=== PATIENT | male | born 1970 | race Caucasian/White ===

== ENCOUNTER → 2020-08-03 07:20 | Outpatient (CLI) | payer OTHER, SELFPAY ==
--- NOTE | 2020-08-03 07:23 | CT_ITS ---
STUDY: CT MAXILLOFACIAL SINUSES REASON FOR EXAM: Male, 49 years old. NASAL POLYP -- UNABLE TO BREATH FROM RIGHT NASAL CAVITY -- SURG-DEVIATED SEPTUM RADIATION DOSAGE (If Supplied By Facility): CTDIvol = ( 33.06 ) mGy, DLP = ( 925.12 ) mGycm TECHNIQUE: The patient was scanned in a multi detector CT scanner. High resolution axial imaging was performed without the administration of intravenous contrast material. Sagittal and coronal images were reconstructed. Individualized dose optimization techniques were used for this CT. COMPARISON: None. FINDINGS: FRONTAL SINUSES: Normal aeration, without mucosal inflammatory disease. ETHMOIDAL SINUSES: Mild mucosal thickening of the ethmoid sinuses bilaterally. MAXILLARY SINUSES: Normal aeration, without mucosal inflammatory disease. SPHENOIDAL SINUSES: Normal aeration, without mucosal inflammatory disease. There is patency of the bilateral maxillary infundibuli with normal uncinate processes, ethmoid bullae, and hiatus semilunaris. Normal bilateral middle turbinates. There is hypertrophy of the left inferior nasal turbinate. Normal midline nasal septum. There is patency of the bilateral nasal airways. The visualized osseous structures are normal. The visualized bilateral orbital contents are normal. CT/Sinus/Facial Bone IMPRESSION: Mild mucosal thickening of the ethmoid sinuses bilaterally. Hypertrophy of the inferior turbinate in the left nasal passage. Electronically Signed: Baldemar Sandhu, at 10:43 EDT , Service support ,
== END ==
PROVIDERS: PCP Family Medicine; Referring Provider Otolaryngology; Visit Provider Otolaryngology
DX: J33.9 Nasal polyp, unspecified (principal); J34.89 Other specified disorders of nose and nasal sinuses
CPT/HCPCS: 70486

== ENCOUNTER 2021-07-03 14:16 | Emergency (ER) | payer OTHER, SELFPAY ==
[2021-07-03 14:17] VITALS: BP 140/86; PULSE 100; RESP 18; TEMP 36.6; O2SAT 98; BMI 31.8
--- NOTE | 2021-07-03 14:41 | RAD_ITS ---
HISTORY: Trauma, ankle injury EXAMINATION/TECHNIQUE: XR Ankle Min 3 Views: COMPARISON: None FINDINGS: BONES/JOINTS: No acute fracture or dislocation. Preservation of the joint spaces. No sclerotic or destructive changes observed. SOFT TISSUES: Lateral ankle swelling. No radiopaque foreign body. RAD/Ankle min 3 Views IMPRESSION: No acute bony abnormality. at 1523 Reported and signed by: Grzegorz Ribeiro MD Electronically Signed: Grzegorz Ribeiro MD at 15:22 EDT Tel , Service support ,
--- NOTE | 2021-07-03 15:26 | EX.ED.DYSGE1 ---
HPI History of Present Illness Chief Complaint: Lower Extremity Injury Narrative Narrative: Patient is a 50-year-old male who states yesterday he was stepping off a wooden palate when he rolled his right ankle. He states he did not fall but he had severe pain the second he put pressure on it. He states that he has been icing the ankle and despite this has remained swollen and has been difficult to ambulate. He states he is concerned he may have fractured the joint and therefore comes in for evaluation. PFSH PFSH Medical History no medical history Home Medications NK 07/03/21 [History Last Taken Unknown] Allergy/AdvReac Type Severity Reaction Status Date / Time No Known Allergies Allergy Verified 07/03/21 14:19 Social History Smoking Status: Never smoker ROS ROS ED Constitutional Constitutional ED: Denies chills or fever(s) ENT ENT ED: Denies sore throat Cardiovascular Cardiovascular: Denies chest pain Respiratory/Chest Respiratory/Chest: Denies cough or dyspnea Gastrointestinal Gastrointestinal: Denies abdominal pain, diarrhea, nausea or vomiting Genitourinary Genitourinary ED: Denies dysuria Musculoskeletal Musculoskeletal: Reports other Details: Positive right ankle pain ; Denies myalgias Integumentary Denies rash Neurologic Neurologic: Denies headache(s) Hematologic/Lymphatic Hematologic/Lymphatic: Denies easy bleeding or easy bruising EXAM Physical Exam Const Vital Signs: 07/03/21 14:17 Temperature 97.9 F Temperature Source Temporal Pulse Rate 100 Respiratory Rate 18 Blood Pressure 140/86 H Blood Pressure Mean 104 Pulse Ox 98 Oxygen Delivery Method Room Air Positive well nourished and well developed General Appearance ED: well developed Eyes PERRL and EOMs intact bilaterally Neck supple Resp normal respiratory effort and clear to auscultation bilaterally Cardio regular rate and regular rhythm Extremity Extremity Narrative: Right lower extremity is neurovascular intact. There is soft tissue swelling along the lateral malleolus. No obvious bony deformity or joint effusion. There is tenderness to palpation along the lateral malleolus as well as just below it. Achilles tendon is intact and ankle ligaments are stable. Active range of motion is slightly decreased secondary to pain. Remainder of the exam is normal Neuro oriented x3 and CN's II-XII intact bilaterally Sensorium / Orientation: alert Psych mental status grossly normal Skin no rashes or lesions noted Skin Narrative: Soft tissue swelling along the right lateral malleolus as documented above but no ecchymosis or secondary changes to suggest infection MDM MDM MDM Narrative Medical decision making narrative: Patient presented to the ER with report of mechanical injury to his right ankle. Physical exam did not show any findings to suggest ligamentous tear. An x-ray was obtained which reveals no obvious fracture. Therefore I feel patient has a grade 1 ankle sprain. He will be instructed on symptomatic care and is safe for discharge home. Radiography Diagnostic Testing: Radiology Impression Ankle X-Ray 07/03/21 14:41 IMPRESSION: No acute bony abnormality. at 1523 Reported and signed by: Grzegorz Ribeiro MD Electronically Signed: Grzegorz Ribeiro MD at 15:22 EDT Tel , Service support , Discharge Plan Triage Chief Complaint: Lower Extremity Injury ED Provider: Clifford Kruger Dx/Rx/DC Orders Clinical Impression: Right ankle sprain Instructions: ED Sprain Ankle W X Ray Prescriptions: No Action NK RF: 0 Primary Care Provider: Gabino Adams Referrals: Gabino Adams MD [Primary Care Provider] - Disposition Disposition: Home, Self Care
== END 2021-07-03 15:36 | disposition home or self-care (01) ==
PROVIDERS: Emergency Provider Emergency Medicine; PCP Family Medicine
DX: S93.401A Sprain of unspecified ligament of right ankle, initial encounter (principal); X50.1XXA Overexertion from prolonged static or awkward postures, initial encounter; Y93.9 Activity, unspecified; Y92.9 Unspecified place or not applicable
CPT/HCPCS: 73610; 99282

== ENCOUNTER → 2021-09-28 11:05 | Outpatient (CLI) | payer OTHER, SELFPAY ==
[2021-09-28 12:17] LABS: Absolute Lymphocyte Count 1.48 X10^3/uL (0.83-4.51); Absolute Neutrophil Count 3.3 X10^3/uL (2.0-7.7); Basophil# 0.02 X10^3/uL; Basophil% 0.4 % (0-1); Eosinophil# 0.08 X10^3/uL; Eosinophils% 1.5 % (0-5); Hematocrit 47.9 % (40-54); Lymphocyte # 1.48 X10^3/ul (0.83-4.51); Lymphocyte % 27.6 % (19-41); Mean Corp Hgb Conc 33.4 g/dL (32-36); Mean Corpuscular Hgb 29.7 pg (27.0-32.0); Mean Platelet Vol. 10.1 fl (6.2-12.0); Monocyte# 0.46 X10^3/uL; Monocyte% 8.6 % (0-10); NRBC Flagged by Analyzer 0 % (0-5); Neutrophil # 3.28 X10^3/uL (2.7-7.7); Neutrophil % 61.2 % (47-70); Platelet Count 214 K/mm3 (150-450); RBC Distribution Width CV 14.1 % (11.6-14.6); RBC Distribution Width SD 45.8 fl (35.1-43.9); Red Blood Count 5.38 M/mm3 (4.6-6.2); White Blood Count 5.4 K/mm3 (4.4-11.0)
[2021-09-28 12:42] LABS: ALB/GLOB Ratio 1.2 RATIO (0.9-2.4); AST(SGOT) 13 U/L (15-37); Alanine Aminotransfer ALT/SGPT 33 U/L (16-61); Albumin, Serum 3.9 g/dL (3.2-5.0); Alkaline Phosphatase 115 U/L (45-117); Anion Gap 5 (5-15); BUN 14 mg/dL (7-18); BUN/Creat Ratio 16.9 RATIO (10-20); Calcium,Total 9.4 mg/dL (8.5-10.1); Chloride 103 mmol/L (98-107); Cholesterol 189 mg/dL (200); Creatinine, Serum 0.83 mg/dL (0.70-1.30); EST Glomerular Filtration Rate 105 mL/min (>60); Est Glom Filt Rate - Afr Amer 127 mL/min (>60); Globulin 3.3 g/dL (2.2-4.2); Glucose 161 mg/dL (74-106); High Density Lipoprotein 34 mg/dL; Potassium 4.4 mmol/L (3.5-5.1); Protein, Total 7.2 g/dL (6.4-8.2); Sodium Level 139 mmol/L (136-145); Triglycerides 243 mg/dL; Very Low Density Lipoprotein 49 mg/dL (5-40)
== END ==
PROVIDERS: PCP Family Medicine; Referring Provider Family Medicine; Visit Provider Registered Nurse
DX: Z00.00 Encounter for general adult medical examination without abnormal findings (principal)
CPT/HCPCS: 36415; 80053; 80061; 85025

== ENCOUNTER → 2024-03-27 | Outpatient (CLI) | payer OTHER, SELFPAY ==
[2024-03-27 09:35] LABS: Vitamin B12 528 pg/mL (211-911); Vitamin D,25 Hydroxy 37.7 ng/mL
[2024-03-27 11:21] LABS: ALB/GLOB Ratio 1.2 RATIO (0.9-2.4); AST(SGOT) 15 U/L (15-37); Alanine Aminotransfer ALT/SGPT 24 U/L (16-61); Albumin, Serum 3.6 g/dL (3.2-5.0); Alkaline Phosphatase 117 U/L (45-117); Anion Gap 10 (5-15); BUN 13 mg/dL (7-18); BUN/Creat Ratio 14.7 RATIO (10-20); Calcium,Total 8.5 mg/dL (8.5-10.1); Chloride 103 mmol/L (98-107); Cholesterol 155 mg/dL (200); Creatinine, Serum 0.89 mg/dL (0.70-1.30); EST Glomerular Filtration Rate 96 mL/min (>60); Est Glom Filt Rate - Afr Amer 116 mL/min (>60); Glucose 241 mg/dL (74-106); High Density Lipoprotein 30 mg/dL; Potassium 4.1 mmol/L (3.5-5.1); Protein, Total 6.6 g/dL (6.4-8.2); Sodium Level 138 mmol/L (136-145); Triglycerides 273 mg/dL; Very Low Density Lipoprotein 55 mg/dL (5-40)
[2024-03-27 11:29] LABS: Microalbumin,Random Urine 9.1 mg/L (NO RANGE EST.); Microalbumin:Creatinine Ratio 8.4 mg/g CRE (<30 mg/g CRE)
[2024-04-01 11:09] LABS: Testosterone, % Free 3.87 % (1.50-4.20); Testosterone, Free 22.87 ng/dL (5.00-21.00); Testosterone, Total 591 ng/dL (264-916)
== END | disposition home or self-care (01) ==
LOC: LAB 08:13
PROVIDERS: Referring Provider Nurse Practitioner Family; Visit Provider Nurse Practitioner Family
DX: E11.9 Type 2 diabetes mellitus without complications (principal); R51.9 Headache, unspecified; G89.29 Other chronic pain
CPT/HCPCS: 36415; 80053; 80061; 82043; 82306; 82570; 82607; 84402; 84403; 84443

== ENCOUNTER 2024-06-03 06:58 | Day surgery (SDC) | payer OTHER, SELFPAY ==
[2024-06-03 07:11] VITALS: BP 132/88; PULSE 98; RESP 16; TEMP 36.7; O2SAT 99; BMI 28.0
[2024-06-03] MEDS: Lactated Ringers 1,000 ML 15 ML IV (07:14)
[2024-06-03 07:27] VITALS: BP 132/88; PULSE 98; RESP 16; TEMP 36.7; O2SAT 99
--- NOTE | 2024-06-03 07:27 | PRE.ANES_ITS ---
ASA Classification* ASA Classification ASA Classification: 2 Assessment & Plan Anesthesia* Anesthesia Assessment Anesthesia Assessment: Discussed sedation and/or anesthesia options, risks, benefits, and alternatives with patient/parents/legal guardian/POA. Questions invited. The patient/parents/legal guardian/POA seems to understand and agrees to proceed with anesthesia plan. Reviewed the physical assessment, medical history, allergy history and patient home medications list prior to surgery/procedure/anesthetic and documented any changes. Performed airway and anesthesia risk assessments. Anesthesia Type Anesthesia Type: MAC Anesthesia Focused Assessment* Temperature: 98.1 F Pulse Rate: 98 Blood Pressure: 132/88 Respiratory Rate: 16 Pulse Ox: 99 Airway Assessment Mouth opens: >3 cm Mallampati Score: II Focused Labs Anesthesia Preop lab: CBC WBC 5.4 K/mm3 (4.4-11.0) 09/28/21 11:12 RBC 5.38 M/mm3 (4.6-6.2) 09/28/21 11:12 Hgb 16.0 g/dL (13.0-16.5) 09/28/21 11:12 Hct 47.9 % (40-54) 09/28/21 11:12 Plt Count 214 K/mm3 (150-450) 09/28/21 11:12 CHEMISTRY Potassium 4.1 mmol/L (3.5-5.1) 03/27/24 08:15 Sodium 138 mmol/L (136-145) 03/27/24 08:15 BUN 13 mg/dL (7-18) 03/27/24 08:15 Creatinine 0.89 mg/dL (0.70-1.30) 03/27/24 08:15 Glucose 241 mg/dL (74-106) H 03/27/24 08:15 TSH 2.20 uIU/mL (0.358-3.74) 03/27/24 08:15 COAG Pre-Assessment Diagnosis/Proposed Procedure Planned Operative Procedure(s): CSCOPE OA Anesthesia History Anesthesia History - clothing examiner: 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 When Was Last Pacemaker Check QUESTION #4 FULL TEXT: You/Your Family Experience fever (hyperthermia) with Anesthesia Last Oral Intake Last Oral intake: Last Oral Intake NPO since 05:00 06/03/24 07:11 Meds taken in AM with sips of No 06/03/24 07:11 water? Meds patient instructed to take am of surgery PONV PONV - clothing examiner: PONV - clothing examiner Female No 05/28/24 09:53 HX of Motion Sickness No 05/28/24 09:53 HX of N/V After Surgery No 05/28/24 09:53 Non-Smoker Yes 05/28/24 09:53 Duration of Surgery greater No 05/28/24 09:53 than 60 minutes Number of Risk Factors 1 05/28/24 09:53 PONV Score Low Risk 05/28/24 09:53 Height & Weight Height & Weight: Anesthesia: Height & Weight Height 5 ft 3 in 06/03/24 07:11 Weight: 72 kg 06/03/24 07:11 Body Mass Index (BMI) 28.0 06/03/24 07:11 Respiratory Assessment Respiratory Assessment - clothing examiner: Respiratory Tract Infection Hx - clothing examiner Hx Respiratory Tract Infection No 05/28/24 09:53 STOP Sleep Apnea STOP Sleep Apnea - clothing examiner: STOP Sleep Apnea - clothing examiner Hx Hypertension Yes: NO MEDS FOR 1 YR 05/28/24 09:53 Hx Sleep Apnea Yes 05/28/24 09:53 CPAP Yes: NONCOMPLIANT 05/28/24 09:53 BIPAP No 05/28/24 09:53 Do you snore loudly (louder than talking or can be heard Do you often feel tired/ fatigued/ sleepy during daytime? Has anyone observed you stop breathing during sleep? STOP Results Positive 05/28/24 09:53 QUESTION #5 FULL TEXT : Do you snore loudly (louder than talking or can be heard through closed doors)? 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 Specify any problems Hx of Preganancy in last 3 N/A 05/28/24 09:53 Months Nurse Filling Out Transfusion DSCHRIBER 05/28/24 09:53 & Questions: Date: 05/28/24 05/28/24 09:53 Time: 09:54 05/28/24 09:53 Patient unable to answer at this time (ie. confused, unrespo /Reproduction History /Reproductive History - clothing examiner: /Reproductive Hx- clothing examiner Hx Now No 05/28/24 09:53 Gestational Age (in weeks): EDC: Hx Hx Para Hx Section SAB No 05/28/24 09:53 Active Medications Active Medications: Current Medications Generic Name Dose Route Start Last Admin Trade Name Freq PRN Reason Stop Dose Admin Lactated Ringer's 1,000 mls @ 15 mls/hr 06/03/24 07:15 06/03/24 07:14 IV 15 mls/hr .Q48H BECCA Administration PFSH Medical History Wears glasses Arthritis Restless legs Back pain Migraine headache Dietary restriction History of hiatal hernia Gastric reflux CPAP (continuous positive airway pressure) dependence History of deviated nasal septum DMII (diabetes mellitus, type 2) HTN (hypertension) Family history of colon cancer in father Home Medications ?Medication ?Instructions ?Recorded ?Last Taken ?Type propranolol 10 mg tablet 10 mg PO QHS #30 tabs 03/17/24 05/30/24 Rx ashwagandha extract 500 mg capsule 500 mg PO DAILY 04/14/24 05/30/24 History berberine chloride 500 mg capsule 500 mg PO BID 04/14/24 05/30/24 History cholecalciferol (vitamin D3) 50 50 mcg PO DAILY 04/14/24 05/30/24 History mcg (2,000 unit) capsule omega-3 fatty acids 1,250 mg 1,250 mg PO DAILY 04/14/24 05/30/24 History capsule tirzepatide 2.5 mg/0.5 mL 2.5 mg subcut TU 05/28/24 05/20/24 History subcutaneous pen injector (Mounjaro) Allergy/AdvReac Type Severity Reaction Status Date / Time Environmental Allergies: Allergy PT UNABLE Verified 06/03/24 07:02 Uncoded (seasonal) TO RESPOND-NEEDS F/U Family History Father CVA (cerebral vascular accident) Colon cancer Hypertension Heart disease Social History household members: spouse current occupational status: employed Smoking Status: Never smoker Electronic Cigarette Use: not used second hand exposure: No alcohol intake: never substance use type: does not use Review of Systems (Anesthesia) ROS Narrative System reviewed and no additional complaints, except as documented.
[2024-06-03 07:35] LABS: Bedside Glucose 207 mg/dL (74-106)
--- NOTE | 2024-06-03 07:45 | HP.PCM_ITS ---
HPI - General HPI Narrative MASON BYRNES, is a 53 M who presents for screening colonoscopy. He has never had a colonoscopy in the past. He does have family history of colon cancer in his father in his 70s. He denies abdominal pain or blood in the stool. COUNTS INCLUDE 234 BEDS AT THE [facility] Medical History Wears glasses Arthritis Restless legs Back pain Migraine headache Dietary restriction History of hiatal hernia Gastric reflux CPAP (continuous positive airway pressure) dependence History of deviated nasal septum DMII (diabetes mellitus, type 2) HTN (hypertension) Family history of colon cancer in father Home Medications ?Medication ?Instructions ?Recorded ?Last Taken ?Type propranolol 10 mg tablet 10 mg PO QHS #30 tabs 03/17/24 05/30/24 Rx ashwagandha extract 500 mg capsule 500 mg PO DAILY 04/14/24 05/30/24 History berberine chloride 500 mg capsule 500 mg PO BID 04/14/24 05/30/24 History cholecalciferol (vitamin D3) 50 50 mcg PO DAILY 04/14/24 05/30/24 History mcg (2,000 unit) capsule omega-3 fatty acids 1,250 mg 1,250 mg PO DAILY 04/14/24 05/30/24 History capsule tirzepatide 2.5 mg/0.5 mL 2.5 mg subcut TU 05/28/24 05/20/24 History subcutaneous pen injector (Mounjaro) Allergy/AdvReac Type Severity Reaction Status Date / Time Environmental Allergies: Allergy PT UNABLE Verified 06/03/24 07:02 Uncoded (seasonal) TO RESPOND-NEEDS F/U Family History Father CVA (cerebral vascular accident) Colon cancer Hypertension Heart disease Social History household members: spouse current occupational status: employed Smoking Status: Never smoker Electronic Cigarette Use: not used second hand exposure: No alcohol intake: never substance use type: does not use Past Medical/Surgical History Planned Operation Planned Operative Procedure(s): CSCOPE OA Previous Hospitalizations/Surgeries HX Hospitalizations: No Any Problems With Anesthesia: No You/Your Family Experience Fever (Hyperthermia) With Anes: No Cholinesterase deficiency: No Cardiovascular Hx of Irregular Heartbeat and/or Afib: No Hx Heart Attack: No Hx Congestive Heart Failure: No Hx Hypertension: Yes (NO MEDS FOR 1 YR) Hx Pacemaker: No Respiratory Hx Chronic Obstructive Pulmonary Disease (COPD): No Hx Asthma: No Hx Emphysema: No Hx Sleep Apnea: Yes CPAP: Yes (NONCOMPLIANT) BIPAP: No Hx Respiratory Tract Infection/Cold (presently): No Result (for STOP score): Positive Smoking Status: Never smoker Gastrointestinal Hx Ulcer: No Neurological Hx Seizures: No Hx Head/Neck Injury: No Hx Headaches: Yes Hx Back Injury/Pain: No Does patient have nerve stimulator: No Reproduction : No Miscellaneous Recent Exposure to Contagious Disease: No Allergies Environmental Allergies: Uncoded (seasonal) Allergy (Verified 06/03/24 07:02) PT UNABLE TO RESPOND-NEEDS F/U Discharge Is Pt Admitted From a Care Home, or a [facility]: No After D/C, Where Do you Plan to Go: Return Home Vital Signs Vital Signs Vital Signs: 06/03/24 07:11 06/03/24 07:11 06/03/24 07:27 Temperature 98.1 F 98.1 F Temperature Source Temporal Pulse Rate 98 98 Respiratory Rate 16 16 Respiratory Pattern Normal Blood Pressure 132/88 H 132/88 H Blood Pressure Mean 102 Blood Pressure Source Monitor Blood Pressure Position Semi-Fowlers Blood Pressure Location Left Arm Pulse Ox 99 99 Oxygen Delivery Method Room Air Weight Weight: 158 lb 11.725 oz Body Mass Index (BMI) 28.0 Physical Exam Const alert and oriented x3 HEENT normocephalic Eyes PERRL Resp normal respiratory effort and normal air movement Cardio regular rate and regular rhythm GI soft to palpation, non-tender and non-distended Extremity normal to inspection Assessment & Plan Assessment/Plan (1) Encounter for screening for malignant neoplasm of colon: PLAN: I explained endoscopy in detail to the patient. I explained the risks including but not limited to stroke or heart attack with anesthesia, perforation of the GI tract, bleeding, infection. I explained that any of these could necessitate further emergency surgery. The patient understands and all ques tions were answered sufficiently. The patient wishes to proceed with procedure. Lamont José MD Pager: [facility] [address] [place] [address], [address] [place] [phone] Office: Surgery Risks - Colonoscopy Risks Include but are not Limited To: Risks include but are not limited to: Bleeding, perforation requiring further surgery, inability to complete colonoscopy requiring barium enema.
--- NOTE | 2024-06-03 08:00 | COLBX_PTH ---
PATIENT: MASON BYRNES LOC: EN U#:[id number] AGE/SX: 53/M ROOM: RE06/03/[address]: Dr. Lamont José MD : 1970 BED: DIS: 06/03/2024 SPEC #: [id number] RECD: 06/03/24 11:15 STATUS: MIGUEL A ELANIE #: [id number] SUSAN: 06/03/24 08:[address]: Lamont José DEPT: SURGICAL PATHOLOGY RECD BY: Tammi Anne ENTERED: 06/03/24 12:53 SP TYPE: COLON BX OTHR DR: Deidre Schrader, [employer] MECH[employer]IN [employer]-C Tissues: A - Transverse colon B - Transverse colon Procedures: Surgery Specimen Level IV HEADER OPERATION: Colonoscopy with polypectomy PRE-OP DIAGNOSIS: Encounter for screening for malignant neoplasm of colon TISSUE SUBMITTED: A- Distal transverse colon polyp, B- Distal transverse colon mass biopsy MICROSCOPIC DIAGNOSIS A. Distal transverse colon polyp, polypectomy: Tubular adenoma. B. Distal transverse colon mass, biopsy: Villous adenoma. See comment. 06/04/2024 COMMENT Definite invasive carcinoma is not seen in the specimen. Correlation with clinical, endoscopic findings and appropriate follow up are necessary. Case has been reviewed in consultation with Dr. Barrientos who concurs with the above diagnosis. IDC:AM MICROSCOPIC DESCRIPTION Slides are reviewed. GROSS DESCRIPTION A. Received in fixative is one container labeled with the patient's name and designated Distal transverse colon polyp. The specimen consists of a pink-red polyp measuring 1.0 x 1.0 x 0.5 cm. The presumed base is inked. The polyp is bisected and submitted entirely in one cassette. B. Received in fixative is one container labeled with the patient's name and designated Distal transverse colon mass biopsy. The specimen consists of multiple irregular fragments of light song soft tissue that in aggregate measure 0.5 x 0.5 x 0.1 cm. The specimen is totally submitted in one cassette. 06/03/2024 TC:1 CPT:75799x3
--- NOTE | 2024-06-03 08:18 | OP.COLON_ITS ---
Patient Name: Addy Gregory Procedure Date: 06/03/2024 7:51 AM Date of : 1970 Age: 53 Procedure: Colonoscopy Indications: Screening in patient at increased risk: Colorectal cancer in father 60 or older Providers: Lamont José MD Referring MD: Lamont José MD Medicines: Propofol per Anesthesia Patient Profile: This is a 53 year old male. Refer to note in patient chart for documentation of history and physical. Last Colonoscopy: none. The patient's first colonoscopy is today. Complications: No immediate complications. Estimated blood loss: Minimal. Procedure: Pre-Anesthesia Assessment: - Prior to the procedure, a History and Physical was performed, and patient medications and allergies were reviewed. The patient's tolerance of previous anesthesia was also reviewed. The risks and benefits of the procedure and the sedation options and risks were discussed with the patient. All questions were answered, and informed consent was obtained. Prior Anticoagulants: The patient has taken no anticoagulant or antiplatelet agents. After reviewing the risks and benefits, the patient was deemed in satisfactory condition to undergo the procedure. After I obtained informed consent, the scope was passed under direct vision. Throughout the procedure, the patient's blood pressure, pulse, and oxygen saturations were monitored continuously. The colonoscope was introduced through the anus and advanced to the cecum, identified by appendiceal orifice and ileocecal valve. The colonoscopy was performed without difficulty. The patient tolerated the procedure well. The quality of the bowel preparation was good. The ileocecal valve, appendiceal orifice, and rectum were photographed. Scope In: 8:01:14 AM Scope Withdrawal Time 0 hours 5 minutes 17 seconds Scope Out: 8:14:13 AM Total Procedure Duration Time 0 hours 12 minutes 59 seconds Findings: A medium polyp was found in the distal transverse colon. The polyp was removed with a hot snare. Resection and retrieval were complete. A fungating non-obstructing large mass was found in the distal transverse colon. The mass was non-circumferential. No bleeding was present. This was biopsied with a cold forceps for histology. For location marking, one hemostatic clip was successfully placed. There was no bleeding at the end of the procedure. The exam was otherwise without abnormality on direct and retroflexion views. Impression: - One medium polyp in the distal transverse colon, removed with a hot snare. Resected and retrieved. - Likely malignant tumor in the distal transverse colon. Biopsied. Clip was placed. - The examination was otherwise normal on direct and retroflexion views. Recommendation: - Discharge patient to home. - Resume previous diet. - Continue present medications. - Await pathology results. - Repeat colonoscopy for surveillance based on pathology results. - Return to my office in 1 week. - Perform CT scan (computed tomography) of the abdomen with contrast at appointment to be scheduled. Procedure Code(s): --- Professional --- 63981, Colonoscopy, flexible; with removal of tumor(s), polyp(s), or other lesion(s) by snare technique 80723, 59, Colonoscopy, flexible; with biopsy, single or multiple 69412, Unlisted procedure, colon Diagnosis Code(s): --- Professional --- Z80.0, Family history of malignant neoplasm of digestive organs D12.3, Benign neoplasm of transverse colon (hepatic flexure or splenic flexure) D49.0, Neoplasm of unspecified behavior of digestive system CPT copyright 2021 [employer]. All rights reserved. The codes documented in this report are preliminary and upon life underwriter review may be revised to meet current compliance requirements. Lamont José MD 06/03/2024 8:18:30 AM This report has been signed electronically. Number of Addenda: 0 Note Initiated On: 06/03/2024 7:51 AM
--- NOTE | 2024-06-03 08:18 | PCM.POST.ANE ---
Anesthesia: Postop Eval I Current Vital Signs Temperature: 97.6 F Pulse Rate: 91 Blood Pressure: 82/69 Respiratory Rate: 16 Pulse Ox: 95 Oxygen Delivery Method: Room Air Assessment Airway patent: Yes Spontaneous unlabored respirations: Yes Mental status: Awake and Calm nausea: No Vomiting: No Anesthesia Complication: No Fluid Hydration Crystalloid volume administer (ml): 400 Total IV fluid infused: 400 Progress Note Anesthesia document: Postop Eval 1 completed: Yes
--- NOTE | 2024-06-03 08:19 | OP.CCLET_ITS ---
06/03/2024 Deidre Schrader Re : Colonoscopy procedure for Addy Gregory Dear Raciel This procedure was performed on Monday, June 03, 2024. My impressions and recommendations are as follows: Impressions : - One medium polyp in the distal transverse colon, removed with a hot snare. Resected and retrieved. - Likely malignant tumor in the distal transverse colon. Biopsied. Clip was placed. - The examination was otherwise normal on direct and retroflexion views. Recommendations : - Discharge patient to home. - Resume previous diet. - Continue present medications. - Await pathology results. - Repeat colonoscopy for surveillance based on pathology results. - Return to my office in 1 week. - Perform CT scan (computed tomography) of the abdomen with contrast at appointment to be scheduled. My findings are described in the full procedure note, which is enclosed. If I can be of further assistance, please feel free to contact me at Doctor phone number(s): , Work: . Sincerely, Lamont José MD 06/03/2024 8:18:30 AM This report has been signed electronically.
[2024-06-03 08:20] VITALS: BP 132/88; PULSE 88; RESP 16; TEMP 36.4; O2SAT 96
[2024-06-03 08:25] VITALS: BP 113/74; BP 132/88; BP 82/69; PULSE 87; PULSE 91; RESP 16; TEMP 36.4; O2SAT 95; O2SAT 96
[2024-06-03 08:30] VITALS: BP 114/77; BP 115/81; BP 132/88; PULSE 89; PULSE 94; RESP 16; TEMP 37.3; O2SAT 95; O2SAT 96
[2024-06-03 08:50] VITALS: BP 132/88
--- NOTE | 2024-06-03 09:20 | POSTOPAN2_ITS ---
Anesthesia Postop Eval I Sum Postop Eval Completion status Anesthesia document: Postop Eval 1 completed: Yes Anesthesia Postop Eval I Summary Anesthesia Postop Eval I Summary: Anesthesia Postop Eval I: Assessment Summary Airway patent Yes 06/03/24 08:25 DIRECTOR BUSINESS INTEGRATION.[email or web address] Spontaneous unlabored Yes 06/03/24 08:25 DIRECTOR [employer] INTEGR[employer].GDOTT respirations Mental status Awake,Calm 06/03/24 08:25 DIRECTOR [employer] INTEGRATION.GDOTT nausea No 06/03/24 08:25 DIRECTOR BUSINESS INTEGRATION.GDOTT Vomiting No 06/03/24 08:25 DIRECTOR BUSINESS INTEGRATION.GDOTT Anesthesia Postop Eval I: Fluid Summary Crystalloid volume administer 400 06/03/24 08:25 DIRECTOR BUSINESS INTEGRATION.GDOTT (ml) Colloids volume administered ( ml) Blood Product volume administered (ml) Total IV fluid infused 400 06/03/24 08:25 DIRECTOR BUSINESS INTEGRATION.GDOTT Anesthesia Postop Eval I: Summary Notes Anesthesia Complication No 06/03/24 08:25 DIRECTOR BUSINESS INTEGRATION.GDOTT Anesthesia Complication Comment: Post-operative progress note Anesthesia: Postop Eval II Evaluation Mental status: Awake Pain Level: 0 nausea: No Vomiting: No
--- NOTE | 2024-06-03 09:20 | PCM.POSTANE2 ---
Anesthesia Postop Eval I Sum Postop Eval Completion status Anesthesia document: Postop Eval 1 completed: Yes Anesthesia Postop Eval I Summary Anesthesia Postop Eval I Summary: Anesthesia Postop Eval I: Assessment Summary Airway patent Yes 06/03/24 08:25 BRUSH AND BROOM CLIPPER.[email or web address] Spontaneous unlabored Yes 06/03/24 08:25 BRUSH AND BROOM CLIPPER.GDOTT respirations Mental status Awake,Calm 06/03/24 08:25 BRUSH AND BROOM CLIPPER.GDOTT nausea No 06/03/24 08:25 BRUSH AND BROOM CLIPPER.GDOTT Vomiting No 06/03/24 08:25 BRUSH AND BROOM CLIPPER.GDOTT Anesthesia Postop Eval I: Fluid Summary Crystalloid volume administer 400 06/03/24 08:25 BRUSH AND BROOM CLIPPER.GDOTT (ml) Colloids volume administered ( ml) Blood Product volume administered (ml) Total IV fluid infused 400 06/03/24 08:25 BRUSH AND BROOM CLIPPER.GDOTT Anesthesia Postop Eval I: Summary Notes Anesthesia Complication No 06/03/24 08:25 BRUSH AND BROOM CLIPPER.GDOTT Anesthesia Complication Comment: Post-operative progress note Anesthesia: Postop Eval II Evaluation Mental status: Awake Pain Level: 0 nausea: No Vomiting: No
== END 2024-06-03 08:56 | disposition home or self-care (01) ==
LOC: EN 06:59 → AC 07:00
PROVIDERS: PCP Registered Nurse; Referring Provider Registered Nurse; Visit Provider Surgery
PROC: 0DJD8ZZ Inspection of Lower Intestinal Tract, Via Natural or Artificial Opening Endoscopic (ICD-10-PCS; CPT 45378; principal; 2024-06-03 07:55)
DX: Z12.11 Encounter for screening for malignant neoplasm of colon (principal); E11.9 Type 2 diabetes mellitus without complications; Z79.85 Long-term (current) use of injectable non-insulin antidiabetic drugs; K63.5 Polyp of colon; I10 Essential (primary) hypertension; Z80.0 Family history of malignant neoplasm of digestive organs; Z79.899 Other long term (current) drug therapy; R19.00 Intra-abdominal and pelvic swelling, mass and lump, unspecified site
CPT/HCPCS: 45385; 45380; 82962; 88305; J7120

== ENCOUNTER → 2024-06-04 | Outpatient (CLI) | payer OTHER, SELFPAY ==
--- NOTE | 2024-06-04 13:41 | CT_ITS ---
INDICATION: colon mass EXAMINATION: CT ABDOMEN AND PELVIS with CONTRAST - CT Abdomen And Pelvis W/ Contrast Injection TECHNIQUE: Multiple axial images were obtained of the abdomen and pelvis following administration of IV contrast. Planar reconstructions obtained. A radiation dose optimization technique was used for this scan. Radiation Dose (provided by facility) CTDIvol (NA ) mGy, DLP ( NA) mGy-cm IV Contrast dosage and agent: 100 mL Isovue-300 Oral contrast: Oral contrast is present. COMPARISON: Noncontrast CT of 07/27/2017. No recent examinations for comparison. FINDINGS: AREAS OF INTEREST: 1. There is a intraluminal solid mass within the colon at the level of the splenic flexure measuring approximately 2.7 x 2.5 cm in axial dimension, and 3.7 cm in superior to inferior dimension. No evidence of obstruction. This is characterized by moderate contrast enhancement and a lobulated contour. 2. No other large or small bowel mass is noted. 3. Several small nonpathologic lymph nodes are present with in the transverse mesocolon (series 2: Image 33), largest measuring approximately 4 mm. 4. No evidence of retroperitoneal adenopathy. 5. No no definitive masses noted within the liver. There is subtle area of increased contrast enhancement within the RIGHT hepatic lobe, segment 8, measuring approximately 9.3 mm in size (series 2: Image 17). Additional enhancing nodule within the inferior aspect of the RIGHT hepatic lobe measures 12.2 x 13.9 mm in segment 7 (series 2: Image 33). Remaining liver has normal appearance. 6. No masses involving the adrenal glands. REMAINING EXAMINATION: LOWER CHEST: 1. Lung bases are clear. 2. No cardiomegaly or pericardial effusion. 3. No significant coronary vascular calcifications. HEPATOBILIARY: Liver: Liver is normal in size and configuration. There are 2 Enhancing nodules within the RIGHT hepatic lobe as detailed above. No ductal dilatation.. Gallbladder: The gallbladder is unremarkable. Pancreas: Pancreas is normal size configuration and density. No mass is noted. Spleen: The spleen is homogeneous and normal in size. . BOWEL: Stomach: The stomach is normal in size configuration, no evidence of focal masses, abnormal calcifications. No hiatal hernia noted. Bowel: Large small bowel loops have normal configuration. Prominent intraluminal mass within the colon at the level of splenic flexure as detailed above. No evidence of bowel obstruction. Small bowel has normal appearance. No evidence diverticulitis. Appendix: The visualized appendix has normal appearance.: GENITOURINARY: Adrenals: Both adrenal glands are normal in size. Kidneys: Kidneys have normal configuration. There is a nonobstructing calcification in the RIGHT kidney measuring 4.5 mm. No ureteral stones or CT evidence of obstructive uropathy.. Bladder: Normal Pelvic organs: The visualized pelvic organs are normal in size and configuration. No masses or adenopathy noted. RETROPERITONEUM: There is normal appearance of the abdominal aorta and inferior vena cava. LYMPH NODES: No evidence of retroperitoneal or para-aortic masses fluid collections or adenopathy. PERITONEAL CAVITY: No ascites noted ANTERIOR ABDOMINAL WALL: Normal, no hernia identified. BONES AND SOFT TISSUES: Mild lumbar spondylosis. No evidence of fracture or acutely acquired canal stenosis. No evidence of lytic or sclerotic bony lesions. OTHER: None CT/Abdomen/Pelvis WITH Contrast IMPRESSION: 1. Soft tissue mass/neoplasm within the lumen of the colon at the level of the splenic flexure measuring 2.7 x 2.5 x 3.7 cm. No evidence of bowel obstruction. 2. Several subtle nonspecific lymph nodes are present within the mesocolon adjacent to the splenic flexure, not reaching size criteria of adenopathy. 3. Two enhancing lesions within the RIGHT hepatic lobe. These may represent small hemangiomas, however hypervascular metastatic deposits are not excluded though felt less likely. 4. No masses identified within the adrenal glands. 5. No bony metastatic changes noted. 6. RIGHT renal calcification without evidence of obstructive uropathy. 7. Normal appendix. 8. No evidence of cholelithiasis or duct dilatation. Electronically Signed: Nabeel Nova MD at 18:05 EDT ,
== END | disposition home or self-care (01) ==
LOC: CT 13:40
PROVIDERS: PCP Registered Nurse; Referring Provider Surgery; Visit Provider Surgery
DX: K63.89 Other specified diseases of intestine (principal)
CPT/HCPCS: 74177; Q9967

== ENCOUNTER → 2024-06-11 | Outpatient (CLI) | payer OTHER, SELFPAY ==
[2024-06-11 10:25] LABS: Absolute Lymphocyte Count 0.88 X10^3/uL (0.83-4.51); Absolute Neutrophil Count 3.3 X10^3/uL (2.0-7.7); Basophil# 0.01 X10^3/uL; Basophil% 0.2 % (0-1); Eosinophil# 0.04 X10^3/uL; Eosinophils% 0.9 % (0-5); Hematocrit 46.4 % (40-54); Hemoglobin 15.1 g/dL (13.0-16.5); Lymphocyte # 0.88 X10^3/ul (0.83-4.51); Lymphocyte % 19.1 % (19-41); Mean Corp Hgb Conc 32.5 g/dL (32-36); Mean Corpuscular Hgb 28.9 pg (27.0-32.0); Mean Corpuscular Volume 88.7 fL (80-94); Mean Platelet Vol. 9.8 fl (6.2-12.0); Monocyte# 0.36 X10^3/uL; Monocyte% 7.8 % (0-10); NRBC Flagged by Analyzer 0 % (0-5); Neutrophil # 3.29 X10^3/uL (2.7-7.7); Neutrophil % 71.6 % (47-70); Platelet Count 220 K/mm3 (150-450); RBC Distribution Width CV 13.7 % (11.6-14.6); RBC Distribution Width SD 44.6 fl (35.1-43.9); Red Blood Count 5.23 M/mm3 (4.6-6.2); White Blood Count 4.6 K/mm3 (4.4-11.0)
== END | disposition home or self-care (01) ==
PROVIDERS: PCP Registered Nurse; Referring Provider Surgery; Visit Provider Surgery
DX: K63.89 Other specified diseases of intestine (principal)
CPT/HCPCS: 36415; 82378; 85025

== ENCOUNTER 2024-06-23 13:16 | Inpatient (IN) | payer OTHER, SELFPAY ==
[2024-06-23] VITALS (14 sets, daily range): BP systolic 112–133; BP diastolic 69–83; PULSE 88–102; RESP 14–20; TEMP 36.2–37.3; O2SAT 93–100; BMI 28.1
--- NOTE | 2024-06-23 | COL._PTH ---
PATIENT: MASON BYRNES LOC: MS3 U#:[id number] AGE/SX: 53/M ROOM: MS319 RE06/23/[address]: Dr. Lamont José MD : 1970 BED: 1 DIS: 06/28/2024 SPEC #: [id number] RECD: 06/23/24 13:28 STATUS: MIGUEL A HENRY #: [id number] SUSAN: 06/23/24 00:[address]: Lamont José DEPT: SURGICAL PATHOLOGY RECD BY: Gopal Carreon ENTERED: 06/24/24 09:35 SP TYPE: COLON OTHR DR: Deidre Schrader, TRANSMISSION MECHANIC-C Tissues: Colon, NOS Procedures: Surgery Specimen Level HEADER OPERATION: Laparoscopic splenic flexure resection PRE-OP DIAGNOSIS: Colonic mass TISSUE SUBMITTED: Splenic flexure- suture silver proximal margin MICROSCOPIC DIAGNOSIS Splenic flexure, segmental resection: Invasive moderately differentiated adenocarcinoma. See cancer template below. AM.mr 06/26/2024 COMMENT COLON/RECTAL CANCER CASE SUMMARY Procedure: Segmental colectomy Tumor Site: Splenic flexure Tumor Size: 4.0 x 3.5 x 2.0cm Macroscopic Tumor Perforation: Not identified Histologic Type: Colon adenocarcinoma Histologic Grade: G2 (moderately differentiated) Tumor Extension: Tumor invades into the muscularis propria Margins: All margins are uninvolved by invasive carcinoma Treatment Effect: Unknown Lympho vascular Invasion: Not identified Perineural Invasion: Not identified Tumor Deposits: Not identified Regional Lymph Nodes: 10 out of 10 lymph nodes, negative for metastatic carcinoma Ancillary Studies: [id number] (immunohistochemistry) No MSI detected (No loss of mismatch repair proteins). Additional Pathologic Findings: Mild chronic inflammation Pathologic Stage: T2 N0 Mx Immunohistochemistry ([id number]) supports the above diagnosis. Case has been reviewed in consultation with Dr. Hernandez who concurs with the above diagnosis. IDC:[id number] MICROSCOPIC DESCRIPTION Slides are reviewed. GROSS DESCRIPTION Received in fixative is one container labeled with the patient's name and designated Splenic flexure biopsy. The specimen consists of a segment of colon with attached pericolonic adipose tissue and omentum measuring 14.0cm in length. Both resection margins are stapled. Focal area of serosal surface shows puckering. This area is inked black 6.0cm away from the proximal resection margin and an almost obstructing cauliflower like mass is noted measuring 3.5 x 4.0 x 2.0cm. No additional mass lesions are identified. Attached omentum measures 15.0 x 13.0 x 2.0cm. Pericolonic adipose tissue is fixed in lymph node revealing solution. More dictation will follow after fixation. . 06/24/2024 Section of the bowel wall reveals a few diverticula and obviously ruptured diverticula are noted. No additional mucosa lesion is identified. Section of the tumor reveal no extension through bowel wall. Section of the omentum do not reveal any mass lesions. Sections of pericolonic adipose tissue reveal multiple lymph nodes, largest lymph node measures 0.5cm in greatest dimension. Fisher Quahog sections are submitted as follows: 1- proximal resection margin, 2- distal resection margin, 3&4- diverticula, 5-8- tumor, 9- omentum, 10- 12-lymph node (cassette 10- one bisected lymph node, 11&12- multiple lymph nodes). . 06/25/2024 Pericolonic adipose tissue dissected again for a second look for lymph nodes. More sections are submitted as follows: 13-16- rest of the tumor, 17&18- pericolonic adipose tissue with possible lymph node. . 06/26/2024 TC:0 CPT:41796
--- NOTE | 2024-06-23 | IMM_PTH ---
PATIENT: MASON BYRNSE LOC: MS3 U#:[id number] AGE/SX: 53/M ROOM: HI319 RE06/23/[address]: Dr. Lamont José MD : 1970 BED: 1 DIS: 06/28/2024 SPEC #: [id number] RECD: 06/30/24 09:51 STATUS: MIGUEL A REQ #: [id number] SUSAN: 06/23/24 00:[address]: Lamont José DEPT: IMMUNOHISTOCHEMISTRY RECD BY: Alejandro Lang ENTERED: 06/30/24 09:51 SP TYPE: IMMUNO OTHR DR: Deidre Schrader, CIRCULAR KNITTER-C Tissues: Colon, NOS Procedures: MLH-1 (add) MSH6 (add) Anti-PMS2 (add) HER2 GURINDER (add) KI-67 (add) P53 (add) MSH2 (initial) MOC-31 (add) PHYSICIAN & INSTITUTION [place] [id number] SPECIMEN INFORMATION: Tissue Source: Splenic flexure Clinical Info: Colonic mass Specimen Number: [id number] CPT code: 82305,52032d9 METHODOLOGY: Deparaffinized sections of prefer/formalin-fixed tissue or PAP/DQ stained slides are incubated with monoclonal/polyclonal antibodies/oligonucleotide probes. Localization is made via biotin free immunoperoxidase method. Appropriate controls are performed and reacted as expected. Results on target cell population are indicated in the following table: RESULTS: ANTIBODY / CLONE RESULT Block #5 Her-2neu (CB11) negative MOC-31 (4561) positive MLH-1 (M1) positive MSH2 (25D12) positive MSH6 (44) positive PMS2 (LUW5160) positive Ki-67 (30-9) positive, >90% P53 (DO-7) negative, null pattern These tests were developed and their performance characteristics determined by [facility]. They may not have been cleared or approved by the U.S. Food and Drug Administration. The FDA has determined that such clearance or approval is not necessary. The above immunohistochemical/dualISH markers are ordered and reviewed by the Pathologist. INTERPRETATION: Splenic flexure, resection: Invasive adenocarcinoma. Result of Microsatellite Instability Study: Negative (no loss of mismatch protein; no microsatellite instability detected). AMLauren 07/01/2024
[2024-06-23] MEDS: Lactated Ringers 1,000 ML 40 ML IV (09:26)
[2024-06-23] MEDS: Acetaminophen 500 MG Tablet 1000 MG PO (09:28)
[2024-06-23] MEDS: Gabapentin 600 MG Tablet PO (09:28)
--- NOTE | 2024-06-23 09:32 | HP.PCM_ITS ---
History and Physical Date of Admission: 06/23/24 Intake Vital Signs 06/03/2407:11 06/11/2412:51 Height 5 ft 3 in 5 ft 3 in Weight: 162 lb BMI 28.7 BP 145/85 H Blood Pressure Location Rt brachial Position Sitting Respiration 18 Pulse 97 Pulse Source Monitor Temp 97.5 F L Temp Source Temporal Pulse Oximetry (%) 100 Oxygen Delivery Method room air Intake Visit Reasons: DISCUSS MASS FOUND ON SCOPE Chief Complaint: discuss mass found on scope Accompanied by: Is patient in pain?: No Allergies Environmental Allergies: Uncoded (seasonal) Allergy (Verified 06/11/24 12:52) PT UNABLE TO RESPOND-NEEDS F/U Medications ?Medication ?Instructions ?Recorded ?Confirmed ?Type propranolol 10 mg tablet 10 mg PO QHS #30 tabs 03/17/24 06/11/24 Rx ashwagandha extract 500 mg capsule 500 mg PO DAILY 04/14/24 06/11/24 History berberine chloride 500 mg capsule 500 mg PO BID 04/14/24 06/11/24 History cholecalciferol (vitamin D3) 50 50 mcg PO DAILY 04/14/24 06/11/24 History mcg (2,000 unit) capsule omega-3 fatty acids 1,250 mg 1,250 mg PO DAILY 04/14/24 06/11/24 History capsule tirzepatide 2.5 mg/0.5 mL 2.5 mg subcut TU 05/28/24 06/11/24 History subcutaneous pen injector (Mounjaro) Have you fallen in the past year?: No PFSH Medical History Colonic mass Wears glasses Arthritis Restless legs Back pain Migraine headache Dietary restriction History of hiatal hernia Gastric reflux CPAP (continuous positive airway pressure) dependence History of deviated nasal septum DMII (diabetes mellitus, type 2) HTN (hypertension) Family history of colon cancer in father Family History Father CVA (cerebral vascular accident) Colon cancer Hypertension Heart disease Social History household members: spouse current occupational status: employed Smoking Status: Never smoker Electronic Cigarette Use: not used second hand exposure: No alcohol intake: never substance use type: does not use HPI HPI HPI: Colon mass was foundPatient is a 53-year-old male here for colon mass. screening colonoscopy and it is at the splenic flexure. Exam Const General: cooperative Orientation: alert and oriented x3 HENMT Head: normal to inspection Neck Neck: normal visual inspection and full ROM Chest Chest palpation & inspection: normal inspection of the chest Resp Effort & Inspection: normal respiratory effort Auscultation: clear to auscultation bilaterally Cardio Rate: regular rate Rhythm: regular rhythm GI Inspection: non-distended Palpation: soft and nontender Skin General: no rashes or lesions noted Neuro General: patient alert and patient oriented x3 Extrem General: full ROM Psych Appearance: grossly normal Mental Status: mental status grossly normal Assessment and Plan Assessment and Plan (1) Colonic mass: Status: Acute Plan: Patient has a colonic mass at the splenic flexure. I discussed laparoscopic hemicolectomy with him. I discussed resecting the cancer as well as anastomosis. I discussed possibly having to convert to open surgery. I also discussed the risks of the case such as bleeding, infection, injury other organ such as the pancreas or stomach or small bowel. Patient understands all the risks and is willing to proceed. I discussed his bowel prep with him. Patient understands all the risks and is willing to proceed. I did perform a CT scan that did not show any metastatic disease. Lamont José MD Pager: [facility] [address] [place] [address], [address] [place] [address] Office: I have examined the patient and the H&P has been reviewed. There are no clinical changes since date of exam.
[2024-06-23 09:39] LABS: Bedside Glucose 289 mg/dL (74-106)
[2024-06-23 09:58] LABS: Anion Gap 9 (5-15); BUN 7 mg/dL (7-18); BUN/Creat Ratio 7.8 RATIO (10-20); Chloride 100 mmol/L (98-107); EST Glomerular Filtration Rate 94 mL/min (>60); Est Glom Filt Rate - Afr Amer 114 mL/min (>60); Estimated Creatinine Clearance 86.46 ml/min; Glucose 299 mg/dL (74-106); Magnesium 2.2 mg/dL (1.6-2.6); Potassium 3.7 mmol/L (3.5-5.1); Sodium Level 135 mmol/L (136-145)
[2024-06-23] MEDS: Insulin Lispro 100 UNIT/ML INSULN.PEN SC ×2 (10:01→13:22)
[2024-06-23] MEDS: Magnesium 1 GM over 15 mins IV (10:16)
--- NOTE | 2024-06-23 10:47 | PCM.PRE.AN2 ---
ASA Classification* ASA Classification ASA Classification: 2 Assessment & Plan Anesthesia* Anesthesia Assessment Anesthesia Assessment: Discussed sedation and/or anesthesia options, risks, benefits, and alternatives with patient/parents/legal guardian/POA. Questions invited. The patient/parents/legal guardian/POA seems to understand and agrees to proceed with anesthesia plan. Reviewed the physical assessment, medical history, allergy history and patient home medications list prior to surgery/procedure/anesthetic and documented any changes. Performed airway and anesthesia risk assessments. Anesthesia Type Anesthesia Type: General History Source History Obtained from:: Patient and Chart Anesthesia Focused Assessment* Temperature: 98.2 F Pulse Rate: 93 Blood Pressure: 115/83 Respiratory Rate: 18 Pulse Ox: 99 Oxygen Delivery Method: Room Air Airway Assessment Mouth opens: >3 cm Mallampati Score: III Teeth Condition: Intact Neck Range of motion (ROM): Full ROM Focused Labs Anesthesia Preop lab: CBC WBC 4.6 K/mm3 (4.4-11.0) 06/11/24 09:49 RBC 5.23 M/mm3 (4.6-6.2) 06/11/24 09:49 Hgb 15.1 g/dL (13.0-16.5) 06/11/24 09:49 Hct 46.4 % (40-54) 06/11/24 09:49 Plt Count 220 K/mm3 (150-450) 06/11/24 09:49 CHEMISTRY Potassium 3.7 mmol/L (3.5-5.1) 06/23/24 09:15 Sodium 135 mmol/L (136-145) L 06/23/24 09:15 Magnesium 2.2 mg/dL (1.6-2.6) 06/23/24 09:15 BUN 7 mg/dL (7-18) 06/23/24 09:15 Creatinine 0.90 mg/dL (0.70-1.30) 06/23/24 09:15 Glucose 299 mg/dL (74-106) H 06/23/24 09:15 POC Glucose 289 mg/dL (74-106) H 06/23/24 09:09 TSH 2.20 uIU/mL (0.358-3.74) 03/27/24 08:15 COAG Pre-Assessment Diagnosis/Proposed Procedure Planned Operative Procedure(s): LAP MARIAH COLECTOMY Anesthesia History 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 When Was Last Pacemaker Check QUESTION #4 FULL TEXT: You/Your Family Experience fever (hyperthermia) with Anesthesia Last Oral Intake Last Oral intake: Last Oral Intake NPO since 00:00 06/23/24 09:31 Meds taken in AM with sips of No 06/23/24 09:31 water? Meds patient instructed to take am of surgery PONV PONV - blanket cutting machine operator: PONV - blanket cutting machine operator Female No 06/18/24 10:23 HX of Motion Sickness No 06/18/24 10:23 HX of N/V After Surgery No 06/18/24 10:23 Non-Smoker Yes 06/18/24 10:23 Duration of Surgery greater Yes 06/18/24 10:23 than 60 minutes Number of Risk Factors 2 06/18/24 10:23 PONV Score Moderate Risk 06/18/24 10:23 Height & Weight Height & Weight: Anesthesia: Height & Weight Height 5 ft 3 in 06/23/24 09:31 Weight: 72.03 kg 06/23/24 09:31 Body Mass Index (BMI) 28.1 06/23/24 09:31 Respiratory Assessment Respiratory Assessment - blanket cutting machine operator: Respiratory Tract Infection Hx - blanket cutting machine operator Hx Respiratory Tract Infection No 06/18/24 10:23 STOP Sleep Apnea STOP Sleep Apnea - blanket cutting machine operator: STOP Sleep Apnea - blanket cutting machine operator Hx Hypertension Yes: NO MEDS FOR 1 YR 06/18/24 10:23 Hx Sleep Apnea Yes 06/18/24 10:23 CPAP Yes: NONCOMPLIANT 06/18/24 10:23 BIPAP No 06/18/24 10:23 Do you snore loudly (louder than talking or can be heard Do you often feel tired/ fatigued/ sleepy during daytime? Has anyone observed you stop breathing during sleep? STOP Results Positive 06/18/24 10:23 QUESTION #5 FULL TEXT : Do you snore loudly (louder than talking or can be heard through closed doors)? Tobacco Use History Tobacco Use History - blanket cutting machine operator: Tobacco Use History - blanket cutting machine operator Tobacco Use Smoking Status Never smoker 06/18/24 10:23 Hx Tobacco Use No 06/18/24 10:23 Years Smoking Packs Smoked per Day Smoking Cessation Date was within the last 15 years Hx Smoking Cessation Date Hx Smoking Cessation Counseling Hematologic Medial History Hematologic Hx - blanket cutting machine operator: Hematologic Medical Hx - pharmaceutical worker Hx of Blood Transfusion No 06/18/24 10:23 Hx of Transfusion in last 3 No 06/18/24 10:23 Months Date of Last Transfusion (if within last 3 months) Ever experience any problems No 06/18/24 10:23 with transfusion(s)? Specify any problems Hx of Preganancy in last 3 N/A 06/18/24 10:23 Months Nurse Filling Out Transfusion DSCHRIBER 06/18/24 10:23 & Questions: Date: 06/18/24 06/18/24 10:23 Time: 10:23 06/18/24 10:23 Patient unable to answer at this time (ie. confused, unrespo /Reproduction History /Reproductive History - blanket cutting machine operator: /Reproductive Hx- blanket cutting machine operator Hx Now Gestational Age (in weeks): EDC: Hx Hx Para Hx Section SAB No 06/18/24 10:23 Active Medications Active Medications: Current Medications Generic Name Dose Route Start Last Admin Trade Name Freq PRN Reason Stop Dose Admin Cefotetan Disodium 2 gm/ 100 mls @ 200 mls/hr 06/23/24 10:30 Sodium Chloride IV 06/23/24 10:59 PREOP ONE Lactated Ringer's 1,000 mls @ 40 mls/hr 06/23/24 10:30 06/23/24 09:26 IV 40 mls/hr .Q25H BECCA Administration Insulin Human Lispro 0 unit 06/23/24 10:30 06/23/24 10:01 Insulin Lispro 100 Unit/Ml Insuln.Pen SC 3 units Q4H PRN PRN Administration BG >/= 180, SEE PROTOCOL Protocol PFSH Medical History Colonic mass Wears glasses Arthritis Restless legs Back pain Migraine headache Dietary restriction History of hiatal hernia Gastric reflux CPAP (continuous positive airway pressure) dependence History of deviated nasal septum DMII (diabetes mellitus, type 2) HTN (hypertension) Family history of colon cancer in father Home Medications ?Medication ?Instructions ?Recorded ?Last Taken ?Type propranolol 10 mg tablet 10 mg PO QHS MIGRAINES #30 tabs 03/17/24 05/30/24 Rx tirzepatide 2.5 mg/0.5 mL 2.5 mg subcut TU WEIGHT LOSS 05/28/24 05/20/24 History subcutaneous pen injector (Mounjaro) acetaminophen 325 mg capsule 650 mg PO Q4H PRN pain 06/18/24 Unknown History (Tylenol) Allergy/AdvReac Type Severity Reaction Status Date / Time Environmental Allergies: Allergy PT UNABLE Verified 06/23/24 09:25 Uncoded (seasonal) TO RESPOND-NEEDS F/U Family History Father CVA (cerebral vascular accident) Colon cancer Hypertension Heart disease Surgical History (Updated 06/18/24 @ 10:28 by Meseret Ramon) Hx of colonoscopy Social History household members: spouse current occupational status: employed Smoking Status: Never smoker Electronic Cigarette Use: not used second hand exposure: No alcohol intake: never substance use type: does not use Review of Systems (Anesthesia) ROS Narrative System reviewed and no additional complaints, except as documented.
[2024-06-23] MEDS: Cefotetan 2 GM in 0.9% Normal Saline (100mL MB+) 100 ML IV (10:56)
[2024-06-23] MEDS: BUPIVACAINE LIPOSOME/PF 20 ML VIAL OPERA.SITE (12:00)
--- NOTE | 2024-06-23 13:11 | PCM.OPRPT ---
Report of Operation Date of Procedure: 06/23/24 Pre-Operative Diagnosis: Splenic flexure colon mass Post-Operative Diagnosis: Same Surgery/Procedure Performed:: 1. Laparoscopic transverse and left hemicolectomy with takedown of splenic flexure Type of Anesthesia: General/Regional Specimen's removed: Splenic flexure of the colon Estimated Blood Loss (mL): 200 Description of Procedure: Patient was brought back to the operating room and general anesthesia was induced. The abdomen was prepped and draped in usual sterile fashion. A midline incision was made superior to umbilicus and deepened to the fascia which was elevated and incised. 12 mm port was placed into the abdomen and it was insufflated 15 mmHg. Under direct visualization a left lateral 5 mm port was placed as well as a right upper quadrant 5 mm port. Patient was placed in reverse Trendelenburg and the splenic flexure was located. The mass was located as well. Using Enseal the splenic flexure was taken down starting from the descending colon and going around to the transverse colon. Next after with mobilization of the splenic flexure an upper midline incision was lengthened and a wound protector was placed. The splenic flexure was brought through the wound protector. An area of transverse colon was selected between the 2 middle colic vessels and this was taken and divided using CAITY stapler. The left middle colic was taken. Dissection was carried to the upper left colic which was taken as well. There was good hemostasis on both ends. Next a CAITY stapler was used to staple the transverse colon to the descending colon and a [id number] functional end to end anastomosis was performed. Crotch suture was placed with 3-0 silk. There was some bleeding which was controlled with interrupted 3 oh silks along the staple line and some of the blood vessels. The abdomen was irrigated and suctioned dry and inspected and there was good hemostasis. The wound protector was removed and all staff changed gown and gloves. Next the fascia was closed with a running #1 PDS suture starting at the top and bottom meeting in the middle, subcutaneous tissue was irrigated and suctioned. Local anesthetic was injected into the incisions and they were closed with interrupted 4 Monocryl sutures. Steri-Strips and bandages were applied. Patient was awoken and taken to PACU in stable condition. Synoptic Portion: Element Response Options Operation performed with curative intent. Yes Tumor location splenic flexure Extent of colon and vascular resection [Right hemicolectomy ? Splenic flexure resection ? middle and ascending left colic Admit VTE Documentation VTE Mechan Device Prophylaxis: SCD's
--- NOTE | 2024-06-23 13:12 | PCM.POST.ANE ---
Anesthesia: Postop Eval I Current Vital Signs Temperature: 97.1 F Pulse Rate: 90 Blood Pressure: 133/73 Respiratory Rate: 16 Pulse Ox: 96 Oxygen Delivery Method: Room Air Assessment Airway patent: Yes Spontaneous unlabored respirations: Yes Mental status: Awake and Calm nausea: No Vomiting: No Anesthesia Complication: No Fluid Hydration Crystalloid volume administer (ml): 2,200 Total IV fluid infused: 2,200 Progress Note Anesthesia document: Postop Eval 1 completed: Yes
[2024-06-23 13:39] LABS: Bedside Glucose 281 mg/dL (74-106)
[2024-06-23] MEDS: Ketorolac 15 MG/ML Vial IV ×2 (15:15→21:08)
[2024-06-23] MEDS: Morphine 2 MG/ML Syringe IV ×2 (16:12→20:45)
--- NOTE | 2024-06-23 16:24 | POSTOPAN2_ITS ---
Anesthesia Postop Eval I Sum Postop Eval Completion status Anesthesia document: Postop Eval 1 completed: Yes Anesthesia Postop Eval I Summary Anesthesia Postop Eval I Summary: Anesthesia Postop Eval I: Assessment Summary Airway patent Yes 06/23/24 13:13 REPLENISHMENT MERCHANDISING [email or web address] Spontaneous unlabored Yes 06/23/24 13:13 REPLENISHMENT MERCHANDISING ASSOCIATE.[email or web address] respirations Mental status Awake,Calm 06/23/24 13:13 REPLENISHMENT MERCHANDISING [email or web address].[email or web address] nausea No 06/23/24 13:13 REPLENISHMENT MERCHANDISING [email or web address].[email or web address] Vomiting No 06/23/24 13:13 REPLENISHMENT MERCHANDISING [email or web address].[email or web address] Anesthesia Postop Eval I: Fluid Summary Crystalloid volume administer 2,200 06/23/24 13:13 REPLENISHMENT MERCHANDISING [email or web address].[email or web address] (ml) Colloids volume administered ( ml) Blood Product volume administered (ml) Total IV fluid infused 2,200 06/23/24 13:13 REPLENISHMENT MERCHANDISING ASSOCIATE.[email or web address] Anesthesia Postop Eval I: Summary Notes Anesthesia Complication No 06/23/24 13:13 REPLENISHMENT MERCHANDISING [email or web address].[email or web address] Anesthesia Complication Comment: Post-operative progress note Anesthesia: Postop Eval II Evaluation Mental status: Awake and Calm Pain Level: 2 nausea: No Vomiting: No Complications Anesthesia Complication: No
--- NOTE | 2024-06-23 16:24 | PCM.POSTANE2 ---
Anesthesia Postop Eval I Sum Postop Eval Completion status Anesthesia document: Postop Eval 1 completed: Yes Anesthesia Postop Eval I Summary Anesthesia Postop Eval I Summary: Anesthesia Postop Eval I: Assessment Summary Airway patent Yes 06/23/24 13:13 [email or web address] Spontaneous unlabored Yes 06/23/24 13:13 INSIGHTS [email or web address] respirations Mental status Awake,Calm 06/23/24 13:13 [email or web address] [email or web address] nausea No 06/23/24 13:13 INSIGHTS [email or web address] Vomiting No 06/23/24 13:13 INSIGHTS MANAGER.[email or web address] Anesthesia Postop Eval I: Fluid Summary Crystalloid volume administer 2,200 06/23/24 13:13 [email or web address] (ml) Colloids volume administered ( ml) Blood Product volume administered (ml) Total IV fluid infused 2,200 06/23/24 13:13 INSIGHTS MANAGER.MALENA Anesthesia Postop Eval I: Summary Notes Anesthesia Complication No 06/23/24 13:13 INSIGHTS MANAGER.[email or web address] Anesthesia Complication Comment: Post-operative progress note Anesthesia: Postop Eval II Evaluation Mental status: Awake and Calm Pain Level: 2 nausea: No Vomiting: No Complications Anesthesia Complication: No
[2024-06-23] MEDS: Lactated Ringers 1,000 ML 100 ML IV (17:52)
[2024-06-23] MEDS: Ondansetron ODT 4 MG Tablet PO (21:08)
[2024-06-24] VITALS (7 sets, daily range): BP systolic 129–135; BP diastolic 76–85; PULSE 90–105; RESP 15–18; TEMP 36.6–37.3; O2SAT 94–96
[2024-06-24] MEDS: Acetaminophen 500 MG Tablet 1000 MG PO ×5 (00:03→23:15)
[2024-06-24] MEDS: Morphine 2 MG/ML Syringe IV ×4 (00:09→20:33)
[2024-06-24] MEDS: Ketorolac 15 MG/ML Vial IV ×4 (03:18→21:31)
[2024-06-24] MEDS: Lactated Ringers 1,000 ML 100 ML IV ×2 (03:31→12:43)
[2024-06-24 08:35] LABS: Hemoglobin 12.7 g/dL (13.0-16.5); Mean Corp Hgb Conc 33.4 g/dL (32-36); Mean Corpuscular Hgb 29.5 pg (27.0-32.0); Mean Corpuscular Volume 88.4 fL (80-94); Mean Platelet Vol. 9.5 fl (6.2-12.0); Platelet Count 252 K/mm3 (150-450); RBC Distribution Width CV 13.7 % (11.6-14.6); RBC Distribution Width SD 44.2 fl (35.1-43.9); White Blood Count 9.3 K/mm3 (4.4-11.0)
--- NOTE | 2024-06-24 08:59 | PN.SURG_ITS ---
Subjective Subjective Patient had no issues overnight. He has not passed any flatus yet. He was well-controlled on Tylenol and Toradol with no narcotics Objective Data Objective Data Vital Signs: Vital Signs Temp Pulse Resp BP Pulse Ox O2 Del Method O2 Flow Rate 97.8 F 90 18 129/85 H 96 Room Air 4 06/24/24 06:07 06/24/24 06:07 06/24/24 06:07 06/24/24 06:07 06/24/24 06:07 06/24/24 08:14 06/23/24 13:20 Oxygen Flow Rate (L/min) 4 Oxygen Delivery Method Room Air Weight: 158 lb 12.783 oz Body Mass Index (BMI) 28.1 Intake & Output: Intake and Output for Last 24 Hours 06/22/24 06/23/24 06/24/24 23:59 23:59 23:59 Intake Total 564.67 / 564.67 995 / 995 Balance 564.67 / 564.67 995 / 995 Lab / Micro Data 06/24/24 08:12 06/23/24 09:15 Labs: Laboratory Results - last 24 hr 06/23/24 09:09: POC Glucose 289 H 06/23/24 09:15: Sodium 135 L, Potassium 3.7, Chloride 100, Carbon Dioxide 26.0, Anion Gap 9, BUN 7, Creatinine 0.90, Estim Creat Clear Calc 86.46, Est GFR (MDRD) Af Amer 114, Est GFR (MDRD) Non-Af 94, BUN/Creatinine Ratio 7.8 L, G lucose 299 H, Calcium 9.0, Magnesium 2.2 06/23/24 12:34: Blood Type O POSITIVE, Antibody Screen NEGATIVE 06/23/24 13:20: POC Glucose 281 H 06/24/24 08:12: WBC 9.3, RBC 4.30 L, Hgb 12.7 L, Hct 38.0 L, MCV 88.4, MCH 29.5, MCHC 33.4, RDW Std Deviation 44.2 H, RDW Coeff of Tejinder 13.7, Plt Count 252, MPV 9.5 Physical Exam Const oriented x3 and no apparent distress Resp normal respiratory effort GI soft to palpation Palpation: tender Assessment & Plan Assessment/Plan (1) Colonic mass: PLAN: Patient had resection of his splenic flexure yesterday. He is doing well today and his vitals appear stable. He is not passing flatus yet. Continue IV fluids and n.p.o. until he starts passing flatus. Encouraged ambulation and incentive spirometer. SCDs and PPI. Lamont José MD Pager: [facility] [address] [place] [address], [address] [place] [phone] Office:
[2024-06-24 09:09] LABS: Anion Gap 8 (5-15); BUN 12 mg/dL (7-18); BUN/Creat Ratio 14.3 RATIO (10-20); Calcium,Total 8.5 mg/dL (8.5-10.1); Chloride 104 mmol/L (98-107); Creatinine, Serum 0.84 mg/dL (0.70-1.30); EST Glomerular Filtration Rate 102 mL/min (>60); Est Glom Filt Rate - Afr Amer 124 mL/min (>60); Estimated Creatinine Clearance 92.64 ml/min; Glucose 207 mg/dL (74-106); Potassium 3.9 mmol/L (3.5-5.1); Sodium Level 137 mmol/L (136-145)
[2024-06-24] MEDS: Ensure Plus High Protein 120 ML LIQUID PO (09:45)
[2024-06-24] MEDS: Docusate Sodium 100 MG Capsule PO ×2 (09:45→20:34)
--- NOTE | 2024-06-24 10:42 | CASEMGMT ---
MARK DODGE Assessment: Face to Face with pt for initial transition planning/care coordination assessment. RN DAR introduced self and role at [facility], pt voices understanding and consents to assessment. Pt is A&O x4 and answers all questions appropriately at this time. Pt sitting up in chair in no distress. Care providers, pharmacy, and demographics verified/updated. Admitting Dx: zenon colectomy Strata Score: 1 PCP:Deidre Schrader NP Specialists:KISHORE José; Esther Angel Preferred Pharmacy: [facility] Insurance: MMO Prescription Benefit: yes LNOK: Marisela Gregory, Living Arrangements: Pt lives with and adult son and his in the basement of a single story home with 3 steps to enter. Pt reports he is I in ADLs and denies concerns at home. Transportation: Pt drives self and denies concerns with transportation. DME:CPAP-doesn't use; BGM with sufficient strips and lancets HHC/SNF: Denies hx of Pt states no concerns with going home at time of dc. Pt states no further concerns/needs. CM to follow. Advised pt to ask CM if any further question/concerns/needs arise, voices understanding. Pt Goal: Home Plan: Home Junie FLORES CM
[2024-06-24] MEDS: 0.9% Saline Lock 10 ML Syringe IV ×2 (14:20→16:03)
[2024-06-25] VITALS (7 sets, daily range): BP systolic 115–139; BP diastolic 74–85; PULSE 90–99; RESP 16–18; TEMP 36.6–37.2; O2SAT 94–98
[2024-06-25] MEDS: Morphine 2 MG/ML Syringe IV (05:13)
[2024-06-25] MEDS: Acetaminophen 500 MG Tablet 1000 MG PO ×4 (05:13→23:37)
[2024-06-25 07:16] LABS: Absolute Lymphocyte Count 0.81 X10^3/uL (0.83-4.51); Absolute Neutrophil Count 6.6 X10^3/uL (2.0-7.7); Basophil# 0.02 X10^3/uL; Basophil% 0.2 % (0-1); Eosinophil# 0.06 X10^3/uL; Eosinophils% 0.7 % (0-5); Hematocrit 34.3 % (40-54); Hemoglobin 11.2 g/dL (13.0-16.5); Lymphocyte # 0.81 X10^3/ul (0.83-4.51); Lymphocyte % 9.8 % (19-41); Mean Corp Hgb Conc 32.7 g/dL (32-36); Mean Corpuscular Hgb 28.9 pg (27.0-32.0); Mean Corpuscular Volume 88.6 fL (80-94); Mean Platelet Vol. 9.7 fl (6.2-12.0); Monocyte# 0.66 X10^3/uL; NRBC Flagged by Analyzer 0 % (0-5); Neutrophil # 6.64 X10^3/uL (2.7-7.7); Neutrophil % 80.8 % (47-70); Platelet Count 192 K/mm3 (150-450); RBC Distribution Width SD 45.5 fl (35.1-43.9); Red Blood Count 3.87 M/mm3 (4.6-6.2); White Blood Count 8.2 K/mm3 (4.4-11.0)
[2024-06-25 08:29] LABS: Anion Gap 5 (5-15); BUN 10 mg/dL (7-18); BUN/Creat Ratio 16.5 RATIO (10-20); Calcium,Total 8.5 mg/dL (8.5-10.1); Chloride 103 mmol/L (98-107); EST Glomerular Filtration Rate 149 mL/min (>60); Est Glom Filt Rate - Afr Amer 180 mL/min (>60); Estimated Creatinine Clearance 129.69 ml/min; Glucose 197 mg/dL (74-106); Potassium 3.8 mmol/L (3.5-5.1); Sodium Level 135 mmol/L (136-145)
[2024-06-25] MEDS: Docusate Sodium 100 MG Capsule PO ×2 (08:35→19:43)
[2024-06-25] MEDS: Glucerna Shake 120 ML LIQUID PO ×3 (08:35→16:18)
--- NOTE | 2024-06-25 08:48 | PCM.PN.SRG ---
Subjective Subjective Patient evaluated resting comfortably in the chair. He denies nausea, vomiting, fever. He is tolerating clear liquids well. He is urinating well. He is passing flatus. Negative bowel movement. He notes positional soreness in his abdomen. He has been ambulating and sitting in the chair. Objective Data Objective Data Vital Signs: Vital Signs Temp Pulse Resp BP Pulse Ox O2 Del Method O2 Flow Rate 98.9 F 97 16 131/85 H 96 Room Air 4 06/25/24 03:05 06/25/24 03:05 06/25/24 03:05 06/25/24 03:05 06/25/24 08:35 06/25/24 08:35 06/23/24 13:20 Oxygen Flow Rate (L/min) 4 Oxygen Delivery Method Room Air Weight: 158 lb 12.783 oz Body Mass Index (BMI) 28.1 Intake & Output: Intake and Output for Last 24 Hours 06/23/24 06/24/24 06/25/24 23:59 23:59 23:59 Intake Total 564.67 / 564.67 3035 / 3035 Balance 564.67 / 564.67 3035 / 3035 Lab / Micro Data 06/25/24 06:59 06/25/24 06:59 Labs: Laboratory Results - last 24 hr 06/24/24 08:12: Sodium 137, Potassium 3.9, Chloride 104, Carbon Dioxide 25.0, Anion Gap 8, BUN 12, Creatinine 0.84, Estim Creat Clear Calc 92.64, Est GFR (MDRD) Af Amer 124, Est GFR (MDRD) Non-Af 102, BUN/Creatinine Ratio 14.3, Glucose 207 H, Calcium 8.5 06/25/24 06:59: WBC 8.2, RBC 3.87 L, Hgb 11.2 L, Hct 34.3 L, MCV 88.6, MCH 28.9, MCHC 32.7, RDW Std Deviation 45.5 H, RDW Coeff of Tejinder 14.0, Plt Count 192, MPV 9.7, Immature Gran % (Auto) 0.500, Neut % (Auto) 80.8 H, Lymph % (Auto) 9.8 L, [place] % (Auto) 8.0, Eos % (Auto) 0.7, Baso % (Auto) 0.2, Absolute Neuts (auto) 6.6, Absolute Lymphs (auto) 0.81 L, Nucleated RBC % 0, Sodium 135 L, Potassium 3.8, Chloride 103, Carbon Dioxide 27.0, Anion Gap 5, BUN 10, Creatinine 0.60 L, Estim Creat Clear Calc 129.69, Est GFR (MDRD) Af Amer 180, Est GFR (MDRD) Non-Af 149, BUN/Creatinine Ratio 16.5, Glucose 197 H, Calcium 8.5 Physical Exam GI GI Narrative: Abdomen- incisions c/d/i. No active drainage or oozing noted. No erythema or infection noted. Positive bowel sounds. Assessment & Plan Assessment/Plan (1) Colonic mass: PLAN: I am following this patient in conjunction with Dr. Leonard in Dr. José's absence. Labs reviewed Increase diet to fulls. If tolerates full liquids, increase to transitional diet Continue ambulation and I.S. Awaiting bowel movement We will continue to monitor this patient Charges/Coding Visit Charges Inpatient E&M: 84929 Subs Hosp L1 (post-op; no charge)
[2024-06-25] MEDS: oxyCODONE 5 MG Tablet PO ×2 (12:17→19:42)
[2024-06-26 02:15] VITALS: O2SAT 95
[2024-06-26] MEDS: Acetaminophen 500 MG Tablet 1000 MG PO ×3 (05:39→19:21)
[2024-06-26 07:32] LABS: Absolute Neutrophil Count 4.9 X10^3/uL (2.0-7.7); Basophil% 0.3 % (0-1); Eosinophils% 1.4 % (0-5); Hematocrit 33.5 % (40-54); Hemoglobin 11.2 g/dL (13.0-16.5); Lymphocyte % 11.3 % (19-41); Mean Corp Hgb Conc 33.4 g/dL (32-36); Mean Corpuscular Hgb 29.5 pg (27.0-32.0); Mean Corpuscular Volume 88.2 fL (80-94); Mean Platelet Vol. 9.5 fl (6.2-12.0); Monocyte% 7.5 % (0-10); Neutrophil # 4.94 X10^3/uL (2.7-7.7); Platelet Count 200 K/mm3 (150-450); RBC Distribution Width CV 13.7 % (11.6-14.6); RBC Distribution Width SD 43.9 fl (35.1-43.9); White Blood Count 6.3 K/mm3 (4.4-11.0)
[2024-06-26 07:33] LABS: Absolute Lymphocyte Count 0.71 X10^3/uL (0.83-4.51); Basophil# 0.02 X10^3/uL; Eosinophil# 0.09 X10^3/uL; Lymphocyte # 0.71 X10^3/ul (0.83-4.51); Monocyte# 0.47 X10^3/uL; NRBC Flagged by Analyzer 0 % (0-5)
[2024-06-26 08:22] LABS: Anion Gap 8 (5-15); BUN 5 mg/dL (7-18); BUN/Creat Ratio 9.6 RATIO (10-20); Calcium,Total 8.7 mg/dL (8.5-10.1); Chloride 101 mmol/L (98-107); Creatinine, Serum 0.52 mg/dL (0.70-1.30); EST Glomerular Filtration Rate 178 mL/min (>60); Est Glom Filt Rate - Afr Amer 215 mL/min (>60); Estimated Creatinine Clearance 149.65 ml/min; Glucose 179 mg/dL (74-106); Potassium 3.5 mmol/L (3.5-5.1); Sodium Level 135 mmol/L (136-145)
[2024-06-26 08:29] VITALS: BP 125/83; PULSE 92; RESP 18; TEMP 36.5; O2SAT 97
--- NOTE | 2024-06-26 08:30 | PN.SURG_ITS ---
Subjective Subjective Patient evaluated resting comfortably in the chair. He notes improvement today. He has been feeling some gurgling in the his abdomen. He has continues to pass flatus, however no bowel movement. He is tolerating full liquids. He denies any nausea, vomiting. Occasional belching. Urinating well. Objective Data Objective Data Vital Signs: Vital Signs Temp Pulse Resp BP Pulse Ox O2 Del Method O2 Flow Rate 97.7 F L 92 18 125/83 H 97 Room Air 4 06/26/24 08:06/26/24 08:06/26/24 08:06/26/24 08:06/26/24 08:06/26/24 08:06/23/24 13:20 Oxygen Flow Rate (L/min) 4 Oxygen Delivery Method Room Air Weight: 158 lb 12.783 oz Body Mass Index (BMI) 28.1 Intake & Output: Intake and Output for Last 24 Hours 06/24/24 06/25/24 06/26/24 23:59 23:59 23:59 Intake Total 3035 / 3035 100 / 100 Balance 3035 / 3035 100 / 100 Lab / Micro Data 06/26/24 06:56 06/26/24 06:56 Labs: Laboratory Results - last 24 hr 06/26/24 06:56: WBC 6.3, RBC 3.80 L, Hgb 11.2 L, Hct 33.5 L, MCV 88.2, MCH 29.5, MCHC 33.4, RDW Std Deviation 43.9, RDW Coeff of Tejinder 13.7, Plt Count 200, MPV 9.5, Immature Gran % (Auto) 0.500, Neut % (Auto) 79.0 H, Lymph % (Auto) 11.3 L, [place] % (Auto) 7.5, Eos % (Auto) 1.4, Baso % (Auto) 0.3, Absolute Neuts (auto) 4.9, Absolute Lymphs (auto) 0.71 L, Nucleated RBC % 0, Sodium 135 L, Potassium 3.5, Chloride 101, Carbon Dioxide 26.0, Anion Gap 8, BUN 5 L, Creatinine 0.52 L, Estim Creat Clear Calc 149.65, Est GFR (MDRD) Af Amer 215, Est GFR (MDRD) Non-Af 178, BUN/Creatinine Ratio 9.6 L, Glucose 179 H, Calcium 8.7 Physical Exam GI GI Narrative: Abdomen- soft, nontender. Dressings were removed. Minimal bowel sounds auscultated. Incisions c/d/i. No erythema or infection noted. Assessment & Plan Assessment/Plan (1) Colonic mass: PLAN: I am following this patient in conjunction with Dr. Dixon in Dr. José's absence. She will independnetly evaluate this patient. Labs reviewed Continue at full liquids. Will re-evaluate at lunch time. Continue with ambulation and I.S Awaiting bowel movement prior to discharge Pathology pending We will continue to monitor this patient Charges/Coding Visit Charges Inpatient E&M: 29327 Subs Hosp L1 (post-op)
[2024-06-26] MEDS: Docusate Sodium 100 MG Capsule PO ×2 (08:31→20:35)
--- NOTE | 2024-06-26 11:49 | NURSING ---
Pt walking steiner. Pt recently had a golf ball sized BM that was observed by this RN. BM was loose, nonformed, drk brown with bright red blood. This RN texted Ninfa RESENDIZ to inform of BM and what it looked like.
[2024-06-26] MEDS: Glucerna Shake 120 ML LIQUID PO (12:31)
[2024-06-26 15:30] VITALS: BP 143/86; PULSE 100; RESP 16; TEMP 37.1; O2SAT 100
[2024-06-26 20:30] VITALS: BP 125/81; PULSE 95; RESP 18; TEMP 36.5; O2SAT 96
[2024-06-27] MEDS: Acetaminophen 500 MG Tablet 1000 MG PO ×4 (00:04→23:38)
[2024-06-27 03:42] VITALS: BP 129/81; PULSE 95; RESP 18; TEMP 36.9; O2SAT 97
[2024-06-27] MEDS: 0.9% Saline Lock 10 ML Syringe IV (04:44)
[2024-06-27 07:27] LABS: Absolute Lymphocyte Count 0.81 X10^3/uL (0.83-4.51); Absolute Neutrophil Count 4.4 X10^3/uL (2.0-7.7); Basophil# 0.02 X10^3/uL; Basophil% 0.3 % (0-1); Eosinophil# 0.13 X10^3/uL; Eosinophils% 2.2 % (0-5); Hematocrit 34.8 % (40-54); Hemoglobin 11.3 g/dL (13.0-16.5); Lymphocyte # 0.81 X10^3/ul (0.83-4.51); Lymphocyte % 13.8 % (19-41); Mean Corp Hgb Conc 32.5 g/dL (32-36); Mean Corpuscular Hgb 28.5 pg (27.0-32.0); Mean Corpuscular Volume 87.9 fL (80-94); Mean Platelet Vol. 9.5 fl (6.2-12.0); Monocyte# 0.51 X10^3/uL; Monocyte% 8.7 % (0-10); NRBC Flagged by Analyzer 0 % (0-5); Neutrophil # 4.35 X10^3/uL (2.7-7.7); Neutrophil % 74.5 % (47-70); Platelet Count 260 K/mm3 (150-450); RBC Distribution Width CV 13.5 % (11.6-14.6); RBC Distribution Width SD 43.2 fl (35.1-43.9); Red Blood Count 3.96 M/mm3 (4.6-6.2); White Blood Count 5.9 K/mm3 (4.4-11.0)
[2024-06-27 07:50] LABS: Anion Gap 8 (5-15); BUN 5 mg/dL (7-18); BUN/Creat Ratio 8.5 RATIO (10-20); Calcium,Total 8.6 mg/dL (8.5-10.1); Chloride 100 mmol/L (98-107); Creatinine, Serum 0.59 mg/dL (0.70-1.30); EST Glomerular Filtration Rate 154 mL/min (>60); Est Glom Filt Rate - Afr Amer 187 mL/min (>60); Estimated Creatinine Clearance 131.89 ml/min; Glucose 182 mg/dL (74-106); Potassium 3.4 mmol/L (3.5-5.1); Sodium Level 136 mmol/L (136-145)
[2024-06-27 09:42] VITALS: BP 122/83; PULSE 56; RESP 16; TEMP 36.7; O2SAT 97
[2024-06-27] MEDS: Potassium Chloride Oral Tablet 20 MEQ 40 MEQ PO (11:32)
[2024-06-27] MEDS: Docusate Sodium 100 MG Capsule PO ×2 (11:32→20:08)
--- NOTE | 2024-06-27 12:44 | PN.SURG_ITS ---
Subjective Subjective Patient doing well this morning. No significant complaints or concerns. Patient admits to passing flatus. He has had 2 bowel movements yesterday however these had what appeared to be old blood mixed with the stool. He has not passed any stools today but is hopeful to do so. He has tolerated diet advancement without difficulty. He states that he is off of narcotic pain medicine. He has been up and ambulating. Pathology results were discussed with him yesterday. 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 9 lymph nodes were noted to be all negative. Pathology is to rereview of the specimen to locate some additional lymph nodes if able. Objective Data Objective Data Vital Signs: Vital Signs Temp Pulse Resp BP Pulse Ox O2 Del Method O2 Flow Rate 98.1 F 56 L 16 122/83 H 97 Room Air 4 06/27/24 09:42 06/27/24 09:42 06/27/24 09:42 06/27/24 09:42 06/27/24 09:42 06/27/24 09:42 06/23/24 13:20 Oxygen Flow Rate (L/min) 4 Oxygen Delivery Method Room Air Weight: 158 lb 12.783 oz Body Mass Index (BMI) 28.1 Intake & Output: Intake and Output for Last 24 Hours 06/25/24 06/26/24 06/27/24 23:59 23:59 23:59 Intake Total 1170 / 1170 Balance 1170 / 1170 Lab / Micro Data 06/27/24 06:17 06/27/24 06:17 Labs: Laboratory Results - last 24 hr 06/27/24 06:17: WBC 5.9, RBC 3.96 L, Hgb 11.3 L, Hct 34.8 L, MCV 87.9, MCH 28.5, MCHC 32.5, RDW Std Deviation 43.2, RDW Coeff of Tejinder 13.5, Plt Count 260, MPV 9.5, Immature Gran % (Auto) 0.500, Neut % (Auto) 74.5 H, Lymph % (Auto) 13.8 L, [place] % (Auto) 8.7, Eos % (Auto) 2.2, Baso % (Auto) 0.3, Absolute Neuts (auto) 4.4, Absolute Lymphs (auto) 0.81 L, Nucleated RBC % 0, Sodium 136, Potassium 3.4 L, Chloride 100, Carbon Dioxide 28.0, Anion Gap 8, BUN 5 L, Creatinine 0.59 L, Estim Creat Clear Calc 131.89, Est GFR (MDRD) Af Amer 187, Est GFR (MDRD) Non-Af 154, BUN/Creatinine Ratio 8.5 L, Glucose 182 H, Calcium 8.6 Physical Exam Const oriented x3 and no apparent distress Resp normal respiratory effort GI GI Narrative: Abdomen is soft and nondistended. Minimal incisional tenderness to palpation. Incisions appear to be clean dry and intact. There is mild bruising. Steri- Strips are in place no signs of erythema or infection Assessment & Plan Assessment/Plan (1) Colonic mass: PLAN: Plan Patient is a 53-year-old male status post colon resection for a colon mass. Patient is doing well following surgery. I offered patient the option of discharge today however he states that he would prefer to have a normal bowel movement without blood prior to going home. I am certainly amenable to this conservative approach. I will check back with him later today to see if any bowel movements have occurred. Otherwise would likely consider discharge tomorrow Would recommend continued diet advancement. Encourage ambulation. Charges/Coding Visit Charges Inpatient E&M: 37189 Subs Hosp L2
[2024-06-27 15:42] VITALS: BP 124/82; PULSE 81; RESP 16; TEMP 37.1; O2SAT 94
[2024-06-27 19:59] VITALS: BP 137/86; PULSE 92; RESP 18; TEMP 36.8; O2SAT 97
[2024-06-27] MEDS: Ondansetron ODT 4 MG Tablet PO (22:13)
[2024-06-28 02:51] VITALS: BP 114/77; PULSE 92; RESP 16; TEMP 36.6; O2SAT 97
[2024-06-28] MEDS: Acetaminophen 500 MG Tablet 1000 MG PO ×2 (05:13→12:31)
[2024-06-28] MEDS: Ondansetron ODT 4 MG Tablet PO ×2 (05:13→12:31)
[2024-06-28] MEDS: Docusate Sodium 100 MG Capsule PO (09:59)
[2024-06-28 10:15] VITALS: BP 117/77; PULSE 93; RESP 18; TEMP 36.7; O2SAT 95
--- NOTE | 2024-06-28 11:06 | DCINST_ITS ---
Discharge Instructions Diet Discharge Diet: Light diet - advance as tolerated Activity Discharge Activity: Return to Normal Activity, May Drive, May Shower and - (Lifting is restricted to less than 20 pounds for 6 weeks) Dressing / Incision Call your doctor if your incision/area has: Continuous Slow Oozing, Sudden Increased Bleeding, Increased Pain/ Swelling, Increased Redness and Foul Smelling Discharge Call your doctor if you observe: Fever of 101 or Higher, Change in Color and Uncontrolled pain Change Dressing in: do not change dressing Cleanse incision/area with: Soap & Water Follow Up Care Please Follow Up With: Lamont José MD When: In 1 to 2 weeks Test Results: Test results from this visit will be discussed in further detail at your follow- up appointment, if applicable. Discharge Plan Admission Admit Date/Time: 06/23/24 13:16 Primary Reason for Your Visit: Colon resection Attending Provider: Lamont José Primary Care Provider: Deidre Schrader NP Discharge Orders/Prescriptions Prescriptions: No Action propranolol 10 mg tablet 10 mg PO QHS Qty: 30 5RF Mounjaro 2.5 mg/0.5 mL pen injector 2.5 mg subcut TU acetaminophen [Tylenol] 325 mg capsule 650 mg PO Q4H PRN (Reason: pain) Referrals / Follow Up: Deidre Schrader NP, BUILDING DRAFTING OFFICER-C [Primary Care Provider] -
--- NOTE | 2024-06-28 11:12 | PCM.DC.SUM ---
Providers Date of Admission: 06/23/24 Date of Discharge: 06/28/24 Primary Care Physician: Deidre Schrader, KAMERON-C Reason For Visit: ERAS, Laparoscopic, Osmin Colectomy Diagnosis Discharge Diagnosis (1) Colonic mass: Status: Acute Code(s): K63.89 - Other specified diseases of intestine Plan Patient is a 53-year-old male status post colon resection for a colon mass. Patient is doing well following surgery. I offered patient the option of discharge today however he states that he would prefer to have a normal bowel movement without blood prior to going home. I am certainly amenable to this conservative approach. I will check back with him later today to see if any bowel movements have occurred. Otherwise would likely consider discharge tomorrow Would recommend continued diet advancement. Encourage ambulation. Medications at Discharge Home Medications propranolol 10 mg tablet 10 mg PO QHS MIGRAINES #30 tabs 03/17/24 tirzepatide 2.5 mg/0.5 mL subcutaneous pen injector (Mounjaro) 2.5 mg subcut TU WEIGHT LOSS 05/28/24 acetaminophen 325 mg capsule (Tylenol) 650 mg PO Q4H PRN pain 06/18/24 ondansetron 4 mg disintegrating tablet 4 mg PO Q8H PRN nausea and vomiting 3 days #10 tabs 06/28/24 Hospital Course Operations - (Hemicolectomy for colon mass) Summary of Care Provided Minutes Spent on Discharge: 20 Hospital Course: The patient is a 53-year-old male who recently was found to have a colonic mass on screening colonoscopy. Patient was admitted for an elective colon resection by Dr. José. Surgery was successfully performed. Patient had a fairly unremarkable postoperative course. Pain was well-controlled and diet was advanced. He did have a couple initial bowel movements that contained blood however his hemoglobin remained very stable. The blood with stool seems to be resolving. Patient has been up and ambulating and is interested in discharge to home today Physical Exam Const alert, oriented x3 and no apparent distress General Appearance: cooperative and comfortable Orientation / Consciousness: awake and oriented to person HEENT normocephalic Eyes PERRL GI GI Narrative: Abdomen is soft, nondistended. Very mild incisional tenderness to palpation. Incision is intact with Steri-Strips in place. No signs of erythema or infection. There is slight bruising to the area as would be expected Weight / BMI Weight Weight: 158 lb 12.783 oz Body Mass Index (BMI) 28.1 ABG / Lab / Microbiology Data 06/27/24 06:17 06/27/24 06:17 D/C Instructions Discharge Diet: Light diet - advance as tolerated Discharge Activity: Return to Normal Activity, May Drive and May Shower Lifting Restricted to (Lbs): 20 Lifting Restrictions: No lifting more than 20 pounds for 6 weeks Call your doctor if your incision/area has: Continuous Slow Oozing, Sudden Increased Bleeding, Increased Pain/ Swelling, Increased Redness and Foul Smelling Discharge Call your doctor if you observe: Fever of 101 or Higher, Change in Color and Uncontrolled pain Change Dressing in: 1 week Cleanse incision/area with: Soap & Water Please Follow Up With: Lamont José MD When: In 1 to 2 weeks Meaningful Use Info Meaningful Use Meaningful Use Diagnoses (Choose all that apply): None applicable Ischemic Stroke Statin Dosing Therapy Reference: STATIN DOSE THERAPY REFERENCE: * Patients > 75 years receive moderate or high dose statin therapy. * Patients 75 years or YOUNGER should receive HIGH intensity statin dose unless contraindicated. You will be required to document reason for non-treatment if statin daily dose does not meet guidelines. HIGH DOSE STATIN THERAPY DAILY Atorvastatin > than or = to 40 mg Rosuvastatin > than or = to 20 mg Amlodipine + Atorvastatin > than or = to 2.5/40 mg Ezetimibe + Simvastatin 10/80 mg Simvastatin 80mg Discharge Plan Admission Admit Date/Time: 06/23/24 13:16 Primary Reason for Your Visit: Colon resection Attending Provider: Lamont José Primary Care Provider: Deidre Schrader NP Discharge Orders/Prescriptions Prescriptions: New ondansetron 4 mg tablet,disintegrating 4 mg PO Q8H PRN (Reason: nausea and vomiting) 3 Days Qty: 10 0RF Continued propranolol 10 mg tablet 10 mg PO QHS Qty: 30 5RF Mounjaro 2.5 mg/0.5 mL pen injector 2.5 mg subcut TU acetaminophen [Tylenol] 325 mg capsule 650 mg PO Q4H PRN (Reason: pain) Referrals / Follow Up: Deidre Schrader NP, MEDICAL CLAIMS ANALYST-C [Primary Care Provider] - Disposition Disposition (needs filled in before D/C Order can be placed): Home, Self Care
[2024-06-28 12:34] VITALS: BP 116/85; PULSE 96; RESP 18; TEMP 36.9; O2SAT 96
== END 2024-06-28 12:51 | disposition home or self-care (01) | DRG 331 ==
LOC: MS3 06-24 08:34 → ACINP 06-25 09:24
PROVIDERS: Anesthesiology; Physician Assistant; Admitting Provider Surgery; PCP Registered Nurse; Referring Provider Surgery; Visit Provider Surgery
PROC: 0DTG4ZZ Resection of Left Large Intestine, Percutaneous Endoscopic Approach (ICD-10-PCS; principal; 2024-06-23 10:10)
DX: K63.89 Other specified diseases of intestine (principal); E11.9 Type 2 diabetes mellitus without complications; I10 Essential (primary) hypertension; Z80.0 Family history of malignant neoplasm of digestive organs
CPT/HCPCS: 36415; 80048; 81002; 82962; 83735; 85025; 85027; 86850; 86900; 86901; 88309; 88341; 88342; 93005; 94668; J7120; A4216; C1760; J2405; J3475

== ENCOUNTER → 2025-04-08 | Outpatient (CLI) | payer OTHER, SELFPAY ==
[2025-04-08 10:22] LABS: Creatinine, Urine (random) 259.00 mg/dL (39.00-259.00); Microalbumin,Random Urine 14.0 mg/L (NO RANGE EST.)
[2025-04-08 10:25] LABS: AST(SGOT) 13 U/L (<=37); Alanine Aminotransfer ALT/SGPT 11 U/L (<=46); Albumin, Serum 4.2 g/dL (3.5-5.0); Alkaline Phosphatase 94 U/L (40-129); Anion Gap 11 (5-15); BUN 16 mg/dL (4-19); BUN/Creat Ratio 19.0 RATIO (10-20); Calcium,Total 9.1 mg/dL (7.6-11.0); Carbon Dioxide 25.1 mmol/L (21.0-32.0); Chloride 104 mmol/L (98-108); Cholesterol 185 mg/dL (<=200); Globulin 2.5 g/dL (2.2-4.2); Glucose 160 mg/dL (70-99); Low Density Lipoprotein Calc. 118 mg/dL; Potassium 3.9 mmol/L (3.3-5.1); Triglycerides 176 mg/dL; Very Low Density Lipoprotein 35 mg/dL (5-40); Vitamin D,25 Hydroxy 22.0 ng/mL (30-100); cholesterol:hdl ratio screen 5.84
== END | disposition home or self-care (01) ==
LOC: LAB 09:23
PROVIDERS: PCP Registered Nurse; Referring Provider Nurse Practitioner Family; Visit Provider Nurse Practitioner Family
DX: E11.65 Type 2 diabetes mellitus with hyperglycemia (principal)
CPT/HCPCS: 36415; 80053; 80061; 82043; 82306; 82570; 84443

== ENCOUNTER 2025-06-23 06:34 | Day surgery (SDC) | payer OTHER, SELFPAY ==
[2025-06-23] VITALS (7 sets, daily range): BP systolic 102–132; BP diastolic 65–79; PULSE 77–85; RESP 12–18; TEMP 26.1–36.3; O2SAT 95–98; BMI 28.3
--- OUTSIDE RECORDS SUMMARY | 2025-06-23 06:51 | XMS RPT_ITS | CCD ---
Author Organization [facility] Care Team Providers Care Leather Seasoner Name Role Phone KAMERON THOMPSON Unavailable Unavailable THAISKAMERON NIELSEN Unavailable Unavailable THAISKAMERON MESSER Unavailable Unavailable RAJEEV ADAMS MD Unavailable Unavailab RAJEEV Mcclellan MD Unavailable Unavailab mikey PROVIDER, UNKNOWN Unavailable Unavailable Angie SAHU, Rajeev Styles Primary Care Provider Michael REEL MAN.Ben CRESPO Primary Care Prov ider Michael REEL MAN.KAIAKO KURA KAUPAPA MAORIBen Primary Care Prov ider KAMERON RIOS JR Attending Unavailable MICHAELBEN Primary Care Unavailneris Schrader ASPHALT 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, Deidre Primary Care Provider Michael ASPHALT 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Ben Attending Provider [phone] Michael ASPHALT 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Ben Referring Provider [phone] Raciel ASPHALT 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, Deidre Referring Provider [phone] GUZMAN VASQUEZ Referring Unavailable MICHAEL BEN PAL Primary Care Unavailabl e GUZMAN VASQUEZ Referring Unavailable MICHAELBEN Primary Care Unavailabl e GUZMAN VASQUEZ Referring Unavailable BEN RODRIGUEZ Primary Care Unavailabl e GUZMAN VASQUEZ Referring Unavailable BEN RODRIGUEZ Primary Care UnavailRAJEEV Martinez Primary Care UnavailLAMONT Sam[place] Referring Unavailneris e GUZMAN VASQUEZ Attending Unavailable SINDHU DIAL Referring Unavailable MARCELINO MORALES Attending Unavailable BEN RODRIGUEZ Primary Care Unavailabl e SINDHU DIAL Attending Unavailable BEN RODRIGUEZ Primary Care UnavailDAVEY Chacon Attending Unavailable BEN RODRIGUEZ Primary Care Unavailabl e BEN RODRIGUEZ Primary Care UnavailKAMERON Tejeda JR Referring Unavailable Lamont José Consulting Unavailable Lamont José Admitting Unavailable Estefanía, Lmaont Referring Unavailable Ninfa Angeles Attending Unavailable Raciel ASPHALT MIXING MACHINE OPERATOR, [facility] Unavailabl e Joe Leonard Attending Unavailable Estefanía, Lamont Attending Unavailable Estefanía, Lamont Admitting Unavailable Estefanía, Lamont Referring Unavailable Raciel ASPHALT MIXING MACHINE OPERATOR, [facility] Unavailabl e Caltarun, Lamont Attending Unavailable Raciel ASPHALT MIXING MACHINE OPERATOR, [facility] Unavailabl e Ben Rodriguez Referring Unavailable Raciel ASPHALT MIXING MACHINE OPERATOR, [facility] Unavailabl e Ben Rodriguez Attending Unavailable Raciel ASPHALT MIXING MACHINE OPERATOR, [facility] Unavailabl e Raciel ASPHALT MIXING MACHINE OPERATOR, [place] Referring Unavailabl e MichaelBen Attending Unavailable Raciel ASPHALT MIXING MACHINE OPERATOR, [facility] Unavailabl e Raciel ASPHALT MIXING MACHINE OPERATOR, [place] Referring Unavailabl e Ben Rodriguez Attending Unavailable Lamont José Attending Unavailable Raciel ASPHALT MIXING MACHINE OPERATOR, [place] Referring Unavailabl e Raciel ASPHALT MIXING MACHINE OPERATOR, [facility] Unavailabl e Raciel, [place] Referring Unavailable Ben Rodriguez Attending Unavailable Raciel ASPHALT MIXING MACHINE OPERATOR, [facility] Unavailabl e Calabrroseann, Lamont Attending Unavailable Raciel ASPHALT MIXING MACHINE OPERATOR, [facility] Unavailabl e Raciel ASPHALT MIXING MACHINE OPERATOR, [place] Referring Unavailabl e Caltarun, Lamont Attending Unavailable Lamont José Consulting Unavailable Estefanía, Lamont Admitting Unavailable Estefanía, Lamont Referring Unavailable Raciel ASPHALT MIXING MACHINE OPERATOR, [facility] Unavailabl e Allergies Allergy Classification Reported Allergen(s) Allergy Type Date of Onset Reaction(s) Facility (1 source) Environmental Allergies: Uncoded; Translations: [Environmental Allergies: Uncoded] Propensity to adverse reactions (disorder) [facility] Repository Medications Current Medications Medication Drug Class(es) Dates Sig (Normalized) Sig (Original) acetaminophen 300 mg / codeine phosphate 30 mg oral tablet (12 sources) Opioid Agonist Start: 11-27-2008 End: 03-03-2025 codeine phos/acetaminophen (TYLENOL-CODEINE #3 300 MG-30 MG TAB) Take one(1) tablet every four(4) to six(6) hours as needed for pain. 10 0 11/27/2008 03/03/2025 Discontinued (Course of therapy completed) Comment on above: Take one(1) tablet e very four(4) to six(6) hours as needed for pain. benzonatate 100 mg oral capsule (12 sources) Non-narcotic Antitussive Start: 07-30-2022 End: 03-03-2025 take 1 capsule by mouth every eight hours as needed benzonatate (TESSALON PERLES) 100 mg capsule Take 1 capsule by mouth three times daily as needed for cough. 12 capsule 07/30/2022 03/03/2025 Discontinued (Course of therapy completed) Comment on above: Take 1 capsule by [facility] three times daily as needed for cough. COMPOUNDED PRESCRIPTION (12 sources) Start: 10-30-2008 End: 03-03-2025 COMPOUNDED PRESCRIPTION HOLY TEA, DRINK TWICE DAILY 0 10/30/2008 03/03/2025 Discontinued (Course of therapy completed) Start: 10-30-2008 COMPOUNDED PRE SCRIPTION HOLY TEA, DRINK TWICE DAILY 0 10/30/2008 Active Comment on above: HOLY TEA, DRINK TWIC E DAILY CPAP/BIPAP/OTHER (4 sources) Start: 04-01-20 End: 08-16-20 CPAP/BIPAP/OTHER Type .CPAPSettings into a note to see current settings/supplies/DME information. 1 each 04/01/2025 08/16/2052 Active doxycycline hyclate 100 mg oral tablet (1 source) Tetracycline-class Drug Start: 07-30-20 End: 08-04-20 take 1 tablet by mouth twice daily doxycycline (VIBRA-TABS) 100 mg tablet Take 1 tablet by mouth twice daily for 5 days. 10 tablet 0 07/30/2022 08/04/2022 Active Comment on above: Take 1 tablet by [facility] twice daily for 5 days. gabapentin 300 mg oral capsule (11 sources) Anti-epileptic Agent Start: 01-23-20 End: 04-22-20 take 1 capsule by mouth twice daily gabapentin (NEURONTIN) 300 mg capsule Indications: Intractable chronic migraine without aura and without status migrainosus , Cervicalgia , Occipital neuralgia of left side Take 1 capsule by mouth two times a day for 90 days. 60 capsule 2 01/22/2025 Active ibuprofen 200 mg oral tablet (11 sources) Nonsteroidal Anti-inflammatory Drug End: 03-03-20 25 take 1 tablet by mouth every six hours as needed ibuprofen (ADVIL) 200 mg tablet Take 200 mg by mouth every 6 hours as needed. 03/03/2025 Discontinued (Course of therapy completed) iv contrast (will be provided with radiology test) (1 source) Start: 07-04-20 End: 07-05-20 iv contrast (will be provided with radiology test) Indications: Malignant neoplasm of splenic flexure (HCC) , Abnormal CT of liver MRI Liver Inject, intravenously, once for 1 dose. No IV access, insert saline lock prior to the beginning of sedation, infusion, injection of imaging exam. Discontinue saline lock post exam. If Pt. has a central line or IVAD, may access for administration according to line specific nursing protocol. Once exam is complete flush line and de-access according to line specific nursing protocol in the MR contrast administration guidelines link. 1 Each 07/04/2024 07/05/2024 Active lisinopril 10 mg oral tablet (12 sources) Angiotensin Converting Enzyme Inhibitor Start: 06-24-20 End: 03-03-20 take 1 tablet by mouth once daily lisinopril (ZESTRIL, PRINIVIL) 10 mg tablet Take 10 mg by mouth once daily. 06/24/2022 03/03/2025 Discontinued (Course of therapy completed) Comment on above: Take 10 mg by mouth once daily. LORazepam 1 mg oral tablet (12 sources) Benzodiazepine Start: 10-30-19 End: 03-03-20 25 lorazepam(ATIVAN 1 MG TAB) Take two tabs 30min. prior to procedure 2 0 10/30/2008 03/03/2025 Discontinued (Course of therapy completed) Comment on above: Take two tabs 30min. prior to procedure MOUNJARO 2.5 mg/0.5 mL pen injector (6 sources) MOUNJARO 2.5 mg/ 0.5 mL pen injector Active multivitamins(DAILY VITAMIN TAB) (12 sources) Start: 10-30-19 End: 03-03-20 25 multivitamins(DAILY VITAMIN TAB) Take one(1) tablet daily. 0 10/30/2008 03/03/2025 Discontinued (Course of therapy completed) Start: 10-30-2008 multivitamins( DAILY VITAMIN TAB) Take one(1) tablet daily. 0 10/30/2008 Active Comment on above: Take one(1) tablet d aily. omeprazole 20 mg delayed release oral capsule (12 sources) Proton Pump Inhibitor End: 03-03-2025 omeprazole (PRILOSEC) 20 mg capsule Take 20 mg by mouth as needed. 03/03/2025 Discontinued (Course of therapy completed) Comment on above: Take 20 mg by mouth once daily. Tirzepatide (Mounjaro) 5 mg/0.5 mL pen injector (2 sources) Start: 04-09-2025 Tirzepatide (Mounjaro) 5 mg/0.5 mL pen injector Active 5 mg SC EVERY WEEK 2 April 09, 2025 12:00am Diabetes mellitus Type 2 diabetes mellitus with hyperglycemia valerian root extract (12 sources) End: 03-03-2025 VALERIAN ROOT ORAL Take by mouth. 03/03/2025 Discontinued (Course of therapy completed) VALERIAN ROOT OR AL Take by mouth. Active VALERIAN ROOT OR AL Take by mouth. 0 Active Comment on above: Take by mouth. Completed/Discontinued Medications Medication Drug Class(es) Dates Sig (Normalized) Sig (Original) acetaminophen 325 mg oral capsule (13 sources) Start: 06-18-2024 End: 07-30-2024 take 2 capsules by mouth every four hours as needed for pain Acetaminophen (Tylenol) 325 mg capsule Discontinued 650 mg PO Q4H as needed for pain June 18, 2024 12:00am July 30, 2024 8:11am End: 03-03-2025 take 1 tablet by mouth every eight hours as needed acetaminophen (TYLENOL 8 HOUR) 650 mg CR tablet Take 650 mg by mouth every 8 hours as needed. 03/03/2025 Discontinued (Course of therapy completed) Ashwagandha Extract 500 mg capsule (2 sources) Start: 04-14-2024 End: 06-18-2024 take 1 capsule by mouth once daily Ashwagandha Extract 500 mg capsule Discontinued 500 mg PO DAILY April 14, 2024 12:00am June 18, 2024 10:22am Berberine Chloride 500 mg capsule (2 sources) Start: 04-14-2024 End: 06-18-2024 take 1 capsule by mouth twice daily Berberine Chloride 500 mg capsule Discontinued 500 mg PO TWICE A DAY April 14, 2024 12:00am June 18, 2024 10:22am cholecalciferol 0.05 mg oral capsule (2 sources) Vitamin D Start: 04-14-2024 End: 06-18-2024 take 1 capsule by mouth once daily Cholecalciferol (Vitamin D3) 50 mcg (2,000 unit) capsule Discontinued 50 ug PO DAILY April 14, 2024 12:00am June 18, 2024 10:20am empagliflozin 25 mg oral tablet (2 sources) Sodium-Glucose Cotransporter 2 Inhibitor Start: 07-16-2024 End: 04-09-2025 take 1 tablet by mouth once daily in the morning Empagliflozin (Jardiance) 25 mg tablet Discontinued 25 mg PO EVERY MORNING 30 5 July 16, 2024 12:00am April 09, 2025 8:48am Diabetes mellitus Type 2 diabetes mellitus with hyperglycemia lidocaine hydrochloride 20 mg/ml mucous membrane topical solution (2 sources) Antiarrhythmic, Amide Local Anesthetic Start: 03-03-2025 End: 04-01-2025 LIDOCAINE VISCOUS 2 % solution Indications: Sore throat Take 15 mL by mouth three times a day as needed. Gargle and spit out medication 100 mL 03/03/2025 04/01/2025 Discontinued 24 hr metFORMIN hydrochloride 500 mg extended release oral tablet (16 sources) Biguanide Start: 03-17-2024 End: 05-28-2024 Metformin 500 mg tablet extended release 24 hr Discontinued 1000 mg PO daily April 14, 2024 8:43am May 28, 2024 9:52am Pt stopped this himself end March 2024 Start: 05-23-2022 End: 03-03-2025 take 1 tablet by mouth twice daily metFORMIN (GLUCOPHAGE) 500 mg tablet Take 500 mg by mouth twice daily. 05/23/2022 03/03/2025 Discontinued (Course of therapy completed) Comment on above: Take 500 mg by mouth twice daily. metroNIDAZOLE 500 mg oral tablet (2 sources) Nitroimidazole Antimicrobial Start: End: Metronidazole 500 mg tablet Discontinued 500 mg PO .COMPLEX 6 0 June 12, 2024 12:00am June 18, 2024 10:20am 500 mg PO Take 2 (two) tablets at 1300, 1500, 2300 neomycin sulfate 500 mg oral tablet (2 sources) Aminoglycoside Antibacterial Start: End: Neomycin 500 mg tablet Discontinued 500 mg PO .COMPLEX 6 0 June 12, 2024 12:00am June 18, 2024 10:20am pre-op antibiotics Take two (2) 500 mg tablets PO at 1300, 1500, 2300 Warren-3 Fatty Acids (2 sources) Start: End: take 1 capsule by mouth once daily Warren-3 Fatty Acids 1,250 mg capsule Discontinued 1250 mg PO DAILY April 14, 2024 12:00am June 18, 2024 10:21am ondansetron 4 mg disintegrating oral tablet (2 sources) Serotonin-3 Receptor Antagonist Start: End: take 1 tablet by mouth every eight hours as needed for nausea and vomiting Ondansetron 4 mg tablet,disintegratin g Discontinued 4 mg PO Q8H as needed for nausea and vomiting 10 3 0 June 28, 2024 11:24am July 30, 2024 8:12am propranolol hydrochloride 10 mg oral tablet (2 sources) beta-Adrenergic Kim Start: End: take 1 tablet by mouth at bedtime Propranolol 10 mg tablet Discontinued 10 mg PO AT BEDTIME 30 5 March 17, 2024 12:00am July 16, 2024 4:24pm Chronic headache disorder Migraine headache Headache, unspecified Other chronic pain Migraine, unspecified, not intractable, without status migrainosus MIGRAINES Tirzepatide (Mounjaro) 2.5 mg/0.5 mL pen injector (8 sources) Start: End: Tirzepatide (Mounjaro) 2.5 mg/0.5 mL pen injector Discontinued 2.5 mg SC EVERY WEEK April 09, 2025 12:00am April 09, 2025 8:59am Start: 05-28-2024 End: 11-27-2024 Tirzepatide (Mounjaro) 2.5 m g/0.5 mL pen injector Discontinued 2.5 mg SC May 28, 2024 12:00am November 27, 2024 12:54pm WEIGHT LOSS Start: 03-19-2024 End: 05-28-2024 Tirzepatide (Mounjaro) 2.5 m g/0.5 mL pen injector Discontinued 2.5 mg SC EVERY WEEK 2 04 03March 19, 2024 4:31pm May 28, 2024 9:53am Diabetes mellitus Type 2 diabetes mellitus without complications Start: 03-17-2024 End: 03-19-2024 Tirzepatide (Mounjaro) 2.5 m g/0.5 mL pen injector Discontinued 2.5 mg SC EVERY WEEK 2 04 03March 17, 2024 12:00am March 19, 2024 4:31pm Diabetes mellitus Type 2 diabetes mellitus without complications Problems Active Problems Problem Classification Problem Date Documented Da te Episodic/Chronic Cancer of colon (20 sources) Malignant tumor of splenic flexure; Translations: [Malignant neoplasm of splenic flexure] Onset: 07-04-2024 07-04-2024 Chronic Diabetes mellitus with complications (1 source) Type 2 diabetes mellitus with hyperglycemia; Translations: [Type 2 diabetes mellitus with hyperglycemia] Onset: 04-15-2025 Chronic Diabetes mellitus without complication (3 sources) Diabetes mellitus; Translations: [Type 2 diabetes mellitus without complications] 03-17-2024 Chronic Diseases of mouth; excluding dental (2 sources) Uvulitis; Translations: [Cellulitis and abscess of mouth] 01-23-2016 Episodic Disorders of lipid metabolism (2 sources) Raised low density lipoprotein cholesterol; Translations: [Pure hypercholesterolemi a, unspecified] 04-13-2025 Chronic External Injury - Other specified and classifiable (1 source) Caught, crushed, jammed, or pinched between moving objects, initial encounter; Translations: [Caught, crushed, jammed, or pinched between moving objects, initial encounter] Onset: 05-26-2017 Headache; including migraine (5 sources) Chronic intractable migraine without aura; Translations: [Chronic migraine without aura, intractable, without status migrainosus] Onset: 01-22-2025 01-22-2025 Chronic Headache; including migraine (2 sources) Chronic headache disorder; Translations: [Chronic headache disorder] 03-17-2024 Episodic Nutritional deficiencies (2 sources) Vitamin D deficiency; Translations: [Vitamin D deficiency, unspecified] 04-13-2025 Chronic Other gastrointestinal disorders (2 sources) Mass of colon; Translations: [Other specified diseases of intestine] 06-03-2024 Episodic Other lower respiratory disease (2 sources) Multiple nodules of lung; Translations: [Other nonspecific abnormal finding of lung field] 11-09-2024 Episodic Other nutritional; endocrine; and metabolic disorders (3 sources) Overweight; Translations: [Overweight] 03-17-2024 Episodic Other upper respiratory infections (1 source) Chronic sinusitis; Translations: [Chronic sinusitis, unspecified] Chronic Residual codes; unclassified (5 sources) Obstructive sleep apnea syndrome; Translations: [Obstructive sleep apnea (adult) (pediatric)] 01-22-2025 Chronic Residual codes; unclassified (2 sources) Obstructive sleep apnea (adult) (pediatric); Translations: [DALE (obstructive sleep apnea)] Onset: 01-22-2025 Chronic Residual codes; unclassified (3 sources) Other specified health status; Translations: [Other specified conditions influencing health status] Onset: 04-17-2025 04-01-2025 Episodic Residual codes; unclassified (2 sources) History of partial resection of colon; Translations: [Acquired absence of other specified parts of digestive tract] 07-08-2024 Episodic Spondylosis; intervertebral disc disorders; other back problems (3 sources) Disseminated idiopathic skeletal hyperostosis; Translations: [Ankylosing hyperostosis [[place]], site unspecified] Onset: 01-22-2025 01-22-2025 Chronic Spondylosis; intervertebral disc disorders; other back problems (9 sources) Spinal stenosis in cervical region; Translations: [Neck pain] Onset: 01-22-2025 01-22-2025 Episodic Sprains and strains (2 sources) Sprain of right ankle; Translations: [Sprain of unspecified ligament of right ankle, initial encounter] 07-11-2021 Episodic Unclassified (1 source) Intolerance of continuous positive airway pressure (CPAP) ventilation 04-01-2025 Past or Other Problems Problem Classification Problem Date Documented Da te Episodic/Chronic Contraceptive and procreative management (19 sources) Patient encounter status; Translations: [Encounter for sterilization] Onset: 10-30-2008 10-30-2008 Episodic Open wounds of extremities (3 sources) Laceration without foreign body of right index finger without damage to nail, initial encounter; Translations: [Laceration without foreign body of right index finger without damage to nail, initial encounter] Onset: 05-26-2017 Episodic Other gastrointestinal disorders (2 sources) Other specified diseases of intestine; Translations: [Other specified diseases of intestine] Onset: 06-30-2024 Episodic Other lower respiratory disease (1 source) Other nonspecific abnormal finding of lung field; Translations: [Lung nodules] Onset: 02-04-2025 Episodic Other screening for suspected conditions (not mental disorders or infectious disease) (3 sources) CT of abdomen abnormal; Translations: [Abnormal findings on diagnostic imaging of liver and biliary tract] Onset: 07-18-2024 07-04-2024 Episodic Other upper respiratory infections (4 sources) Sore throat symptom; Translations: [Acute pharyngitis, unspecified] Onset: 03-03-2025 03-03-2025 Episodic Results Test Name Value Interpretation Reference Range Facility [facility] 04-22-2025 CNPN Telephone (SLEWST) ADDY BYRNES ([id number]) 1970 M Date Time Provider Department 04/22/25 KAMERON RIOS JR During your visit today, we recorded the following information about you: Sofya Walton RN 04/22/2025 12:08 PM Signed Patient calls and states that he had seen ENT last week to talk about other options to treat his sleep apnea. ENT had mentioned that he could be fitted for a mouth guard. Patient is asking if there is a dentist around the area of [place] that provider would recommend to do this? Patient also reports that provider had put him on Gabapentin for head pain. Patient states that this helped somewhat but it also caused pain and swelling in his fingers and toes. Patient asking if there is something else that can be prescribed to help with Head pain? Please review and advise, MARK Rodrigez William J Jr., MD 04/23/2025 9:04 PM Signed Please inform patient to stop gabapentin to see if swelling resolves over the weekend. Regarding dentist in the [place] area, I am not familiar with one. We could place referral to [facility] dentistry. Will ask R Tiareji CRESPO (last saw patient) if she is aware of a dentist in the area, MD Yojana Avelar Rebecca, APRN.CHERIE 04/24/2025 6:[address] Kishore Diana has an office in [place] as well as in [place] Sindhu Dial APRN.Antonina Jones LPN 04/24/2025 1:41 PM Signed TC to Pt. Pt stated he stopped the gabapentin and the pain and swell on his hands. Also Pt was given Dr Kishore Diana phone number to make appt. Antonina Guzman LPN Allergies As of Date: 04/22/2025 (No Known Allergies) Date Reviewed: 04/17/2025 Reviewed by: Ciarra Nix OCCA - Fully Assessed Reason for Visit: Patient Question [9217] Prescriptions as of 04/28/2025 - CPAP/BIPAP/OTHER Type .CPAPSettings into a note to see current settings/supplies/DME information. - MOUNJARO 2.5 mg/0.5 mL pen injector - gabapentin (NEURONTIN) 300 mg capsule Take 1 capsule by mouth two times a day for 90 days. Problem List As Of Date 04/22/2025 Noted Resolved STERILIZATION [Z30.2] 10/30/2008 Malignant neoplasm of splenic flexure (HCC) [C1*07/04/2024 Encounter Status:Closed by SOFYA WALTON on 04/28/25 Normal [facility] CNOVon 04-17-2025 CNOV Office Visit (OTOLMN ) ADDY BYRNES ([id number]) 1970 M Date Time Provider Department 04/17/25 1:00 PM MARCELINO MORALES OTBOBBY During your visit today, we recorded the following information about you: Weight Height 71.6 kg 1.585 m Ciarra Nix OCCA 04/17/2025 1:27 PM Signed Tobacco Use: Never Was smoking cessation packet given? N/A - Patient is a non-smoker or quit >1 year ago. Was a referral initiated?N/A Patient is a non-smoker Marcelino Morales MD 04/17/2025 1:17 PM Signed Mandibular Advancement Device or Oral Appliance: An oral appliance is a custom-fit mouthguard that gently keeps the lower part of the jaw forward in order to open the back of your throat while you are sleeping. It is more effective for mild to moderate Obstructive Sleep Apnea. It is generally made and adjusted by a Sleep Dentist. A repeat a Home Sleep Study is usually performed after the oral appliance is optimally adjusted in order to evaluate its effectiveness. Below are details for dentists that have been approved by the [place] [employer] for Oral Appliance for Obstructive Sleep Apnea in the [facility]. Lesly Wills [address] [place] [address] Professional Website: [email or web address] Gama Meyers [address] [place] [address] Professional Website: [email or web address] Julian Escamilla [address] [facility] [facility] [address] [place] [address] Professional Website: [email or web address] Fredrick Menendez [facility] [place] [address] [place] [address] Professional Website: [email or web address] Lori Willis [address] [place] [address] Professional Website: [email or web address]/ Jamia Dunbar [facility] [address] [address] Professional Website: [email or web address]/ Robby [facility] [address] [place] [address] Second Floor/[place] [address] Professional Website: [email or web address] Angel Pham [address] [place] [address] Professional Les Beltran [address] [facility] [place] [address] Professional Website: [email or web address] Georgiana Chambers [address] [place] [address] Professional Website: [email or web address] Tiburcio Willis [address] [place] [address] Professional Website: [email or web address] Gopal Anderson [address] [place] [address] Professional Website: [email or web address] Nabeel Lang [facility] [place] Nabeel Lang DDS [address] [facility] [address] [place] [address] Professional Website: [email or web address] Corina Championohvee [address] [place] [address] Professional Website: [email or web address] Vinnie Callahan [address] [place], [place] Professional Salome [address] [place] [address] Professional Website: [email or web address] Marcelino Morales MD 04/17/2025 1:27 PM Signed This consult is seen at the kind request of of practitioner Sindhu Dial of sleep medicine, and my final recommendations will be communicated to the requesting health care provider by way of shared electronic medical record. This note is formatted with the impression and plan first and the history and physical to follow. IMPRESSION 54-year-old male with moderate DALE and obstructive sleep. RECOMMENDATION/PLAN I discussed with patient regarding his options which include CPAP, oral appliance or possible inspire. He will need a drug-induced sleep endoscopy before we can know if he is a good candidate for inspire. After our discussion, patient wishes to try oral appliance first. I have given him a list of dentist in the area. I can see him back if he changes mind or if he fails oral appliance. Chief Complaint Obstructive sleep apnea unable to tolerate CPAP History of Present Illness Addy Byrnes is a 54 year old male presents for evaluation of sleep apnea unable to tolerate CPAP. Patient was diagno (more content not included)... Normal [facility] Endocrinology Visit Reporton 04-09-2025 Endocrinology Visit Report [facility] [address] [place] [address] OFFICE VISIT Date of Service: 04/09/25 MR#: [id number] Acct: [id number] Name: ADDY BYRNES Rep #: [id number] : 1970 Provider: VARSHA porter Age/Sex: 54/M Location: [facility] [place] Status: Signed Intake Vital Signs 11/27/24 11:48 04/09/25 08:41 Height 5 ft 3 in 5 ft 3 in Weight: 162 lb 6 oz 158 lb 6 oz BMI 28.8 28.0 BP 130/83 H 111/74 Blood Pressure Location Lt brachial Lt brachial Position Sitting Sitting Pulse 88 77 Pulse Source Monitor Monitor Pulse Oximetry (%) 97 95 Oxygen Delivery Method room air room air Intake Visit Reasons: 4.5 M FU, Cx 03/05 Chief Complaint: f/u diabetes Is patient in pain?: No Allergies Environmental Allergies: Uncoded (seasonal) Allergy (Verified 04/09/25 08:48) PT UNABLE TO RESPOND-NEEDS F/U Medications ???Medication ???Instructions ???Recorded ???Confirmed ???Type gabapentin 300 mg capsule 300 mg PO BID 04/09/25 04/09/25 Hi story tirzepatide 5 mg/0.5 mL 5 mg (0.5 mL) subcut QWEEK #2 mL 0 04/09/25 04/09/25 Rx subcutaneous pen injector (Mounjaro) [facility] Medical History Colonic mass Wears glasses Arthritis Restless legs Back pain Migraine headache Dietary restriction History of hiatal hernia Gastric reflux CPAP (continuous positive airway pressure) dependence History of deviated nasal septum DMII (diabetes mellitus, type 2) HTN (hypertension) Family history of colon cancer in father Surgical History S/P left hemicolectomy Hx of colonoscopy Family History Father CVA (cerebral vascular accident) Colon cancer Hypertension Heart disease Social History household members: spouse current occupational status: employed Smoking Status: Never smoker Electronic Cigarette Use: not used second hand exposure: No alcohol intake: never substance use type: does not use HPI HPI Chief Complaint: f/u diabetes Details: ADDY BYRNES, is a 54 M who presents to the office today for evaluation and management of diabetes. A1C today is 7.9%, improved from 11/27/24 at 9.1%. He has lost 4 lbs since that time. Currently taking Mounjaro 2.5 mg qweek- tolerating well. He admits that he continues to drink regular soda, though he continues to try to decrease. He feels his blood sugars have improving with increased physical activity. Labs updated earlier this week: 04/07/25: triglycerides 176 total cholesterol 185 LDL 118 vitamin D 22 He is pursuing Inspire device for sleep apnea. Denies any acute concerns. ROS Const Constitutional: Positive for headache(s) (chronic, not well controlled); No fatigue or weight change ENT ENT: Positive for headache(s) (chronic, not well controlled); No dizziness/vertigo Cardio Cardiology: No chest pain at rest, chest pain with exertion, shortness of breath or palpitations Neuro Neurology: Positive for headache(s) (chronic, not well controlled) Skin Skin: No wounds Endo Endocrine: No fatigue or weight change Exam Const General: cooperative, healthy appearing, comfortable and no acute distress Nutritional Appearance: overweight Orientation: alert, awake and oriented x3 HENNH Head: normal to inspection Ears: hearing grossly normal bilaterally Nose: external nose normal Face and sinus: normal facial exam Eyes General: appearance normal, both eyes and all related structures Alignment and Position: alignment normal Sclera: sclerae normal Neck Neck: normal visual inspection Chest Chest palpation inspection: normal inspection of the chest Resp Effort Inspection: normal respiratory effort, able to speak in complete sentences, symmetric chest movement, normal respiratory pattern, no audible wheezes and no cough Auscultation: Bilateral: Clear to Auscultation Cardio Rate: regular rate Rhythm: regular rhythm Heart Sounds: S1 normal and S2 normal Musc Cervical Spine: normal cervical lordosis Thoracic/Lumbar Spine: thoracic and lumbar spine normal to inspection Skin General: no rashes or lesions noted Lesions: no lesions Rashes: no rashes Trauma: no lacerations or abrasions Wounds: no wounds Neuro General: patient alert, patient awake and patient oriented x3 Cognition: normal cognition Speech: speech normal Gait: normal gait Extrem General: normal to inspection and no pedal edema Psych Appearance: grossly normal Mental Status: mental status grossly normal Mood: congruent mood Affect: normal affect Speech and Movement: speech and movement normal At (more content not included)... Normal [facility] - Hematology and Cell countsOrdered By: Ben Rodriguez on 04-09-2025 HbA1c (Bld) [Mass fraction] 7.9 % High 4.2-6.3 [facility] Anion gap in Serum or Plasma Ordered By: Ben Rodriguez on 04-08-2025 Anion gap [Moles/Vol] 11 mmol/L 5-15 [facility] BUN/creatinine ratioOrdered By: Ben Rodriguez on 04-08-2025 Urea nitrogen/Creatinine [Mass ratio] 19.0 mg/mg 10-20 [facility] Bilirubin, totalOrdered By: Ben Rodriguez on 07-02-2025 Bilirubin [Mass/Vol] 0.75 mg/dL 0.00-1.30 [facility] Calculated very low density lipoprotein (VLDL) cholesterol measurementOrdered By: Ben Rodriguez on 04-08-2025 Calculated very low density lipoprotein (VLDL) cholesterol measurement 35 mg/dL 5-40 [facility] Carbon dioxide, total [Moles /volume] in Central venous bloodOrdered By: Ben Rodriguez on 04-08-2025 CO2 [Moles/Vol] 25.1 mmol/L 21.0-32.0 [facility] Chloride assayOrdered By: Me emelia Rodriguez on 04-08-2025 Chloride [Moles/Vol] 104 mmol/L 98-108 [facility] Comprehensive Metabolic Prof ilon 04-08-2025 Albumin [Mass/Vol] 4.2 g/dL Normal 3.5-5.0 [facility] Comment on above: Performed By: #### P MLH1. #### [facility] [address] [place], [address] Albumin/Globulin [Mass ratio] 1.7 {ratio} Normal 0.9-2.4 [facility] Comment on above: Performed By: #### P MLH1. #### [facility] [address] [place], [address] ALK PHOS 94 U/L Normal 40-129 [facility] Comment on above: Performed By: #### P MLH1. #### [facility] [address] [place], [address] ALT [Catalytic activity/Vol] 11 U/L Normal <=46 [facility] Comment on above: Performed By: #### P MLH1. #### [facility] [address] [place], [address] AST [Catalytic activity/Vol] 13 U/L Normal <=37 [facility] Comment on above: Performed By: #### P MLH1. #### [facility] [address] [place], [address] Bilirubin [Mass/Vol] 0.75 mg/dL Normal 0.00-1.30 [facility] Comment on above: Performed By: #### P MLH1. #### [facility] [address] [place], [address] BUN/CRE 19.0 RATIO Normal 10-20 [facility] Comment on above: Performed By: #### P MLH1. #### [facility] [address] [place], [address] Calcium [Mass/Vol] 9.1 mg/dL Normal 7.6-11.0 [facility] Comment on above: Performed By: #### P MLH1. #### [facility] [address] [place], [address] Chloride [Moles/Vol] 104 mmol/L Normal 98-108 [facility] Comment on above: Performed By: #### P MLH1. #### [facility] [address] [place], [address] CO2 [Moles/Vol] 25.1 mmol/L Normal 21.0-32.0 [facility] Comment on above: Performed By: #### P MLH1. #### [facility] [address] [place], [address] Creatinine [Mass/Vol] 0.86 mg/dL Normal 0.70-1.20 [facility] Comment on above: Performed By: #### P MLH1. #### [facility] [address] [place], [address] GAP 11 Normal 5-15 [facility] Comment on above: Performed By: #### P MLH1. #### [facility] [address] [place], [address] GFR/1.73 sq M.predicted among non-blacks MDRD (S/P/Bld) [Vol rate/Area] 104 mL/min/{1.73_m2} Normal >60 [facility] Comment on above: Result Comment: mL/m in/1.73m2 CKD-EPI Creatinine Equation (2020) Performed By: #### P MLH1. #### [facility] [address] [place], [address] Globulin (S) [Mass/Vol] 2.5 g/dL Normal 2.2-4.2 [facility] Comment on above: Performed By: #### P MLH1. #### [facility] [address] [place], [address] Glucose [Mass/Vol] 160 mg/dL High 70-99 [facility] Comment on above: Performed By: #### P MLH1. #### [facility] [address] [place], [address] Potassium [Moles/Vol] 3.9 mmol/L Normal 3.3-5.1 [facility] Comment on above: Performed By: #### P MLH1. #### [facility] [address] [place], [address] Sodium [Moles/Vol] 139 mmol/L Normal 133-145 [facility] Comment on above: Performed By: #### P MLH1. #### [facility] [address] [place], [address] T PROT 6.7 g/dL Normal 5.9-8.4 [facility] Comment on above: Performed By: #### P MLH1. #### [facility] [address] [place], [address] Urea nitrogen [Mass/Vol] 16 mg/dL Normal 4-19 [facility] Comment on above: Performed By: #### P MLH1. #### [facility] [address] [place], [address] Glomerular filtration rate ( GFR) estimation/1.73 sq m using serum, plasma, or whole bOrdered By: Ben Rodriguez on 04-08-2025 GFR/1.73 sq M.predicted among non-blacks MDRD (S/P/Bld) [Vol rate/Area] 104 mL/min/{1.73_m2} >60 [facility] Comment on above: mL/min/1.73m2 CKD-EP I Creatinine Equation (2020) LDL calc ser/plasOrdered By: Ben Rodriguez on 04-08-2025 Cholesterol in LDL [Mass/Vol] 118 mg/dL [facility] Comment on above: Mhgmdkzxsa=813-073 m g/dL & Higher Doym=400 mg/dL or greater Laboratory - Chemistry and C hemistry - challengeOrdered By: Ben Rodriguez on 04-08-2025 AST [Catalytic activity/Vol] 13 U/L <38 [facility] Lipid Profileon 04-08-2025 CHOL:HDL 5.[address] [facility] Comment on above: Performed By: #### P MLH1. #### [facility] [address] [place], [address] Cholesterol [Mass/Vol] 185 mg/dL Normal <=200 [facility] Comment on above: Result Comment: Chol esterol level, Desirable <200 mg/dL Borderline high cholesterol 200-239 mg/dL High cholesterol >=240 mg/dL Recommendations of the NCEP Adult Treatment Panel for the following risk-cutoff thresholds for the [place] population. Performed By: #### P MLH1. #### [facility] [address] [place], [address] Cholesterol in HDL [Mass/Vol] 32 mg/dL Low [facility] Comment on above: Result Comment: Laly onal Cholesterol Education Program (NCEP) guidelines: <40 mg/dL: Low HDL-cholesterol (major risk factor for CHD) >= 60 mg/dL: High HDL-cholesterol (negative risk factor for CHD) HDL-cholesterol is affected by a number of factors, e.g. smoking, exercise, hormones, sex and age. Performed By: #### P MLH1. #### [facility] [address] [place], [address] Cholesterol in LDL [Mass/Vol] 118 mg/dL Normal [facility] Comment on above: Result Comment: Bord yclscb=371-710 mg/dL Higher Etjl=817 mg/dL or greater Performed By: #### P MLH1. #### [facility] [address] [place], [place], [address] Cholesterol in VLDL [Mass/Vol] 35 mg/dL Normal 5-40 [facility] Comment on above: Performed By: #### P MLH1. #### [facility] [address] [place], [address] Triglyceride [Mass/Vol] 176 mg/dL Normal [facility] Comment on above: Result Comment: The drugs N-Acetylcysteine and Metamizole may falsely depress this assay. Normal range: <150 mg/dL Borderline High: 150-199 mg/dL High: 200-499 mg/dL Very High: >500 mg/dL Performed By: #### P MLH1. #### [facility] [address] [place], [address] Microalb:Creat Ratio,Random URon 04-08-2025 Creatinine [Mass/Vol] 259.00 mg/dL Normal 39.00-259.00 [facility] Comment on above: Performed By: #### L 502.0250 #### [facility] [address] [place], [address] MALB:CREAT 5.4 mg/g CRE Normal [facility] Comment on above: Performed By: #### L 502.0250 #### [facility] [address] [place], [address] MICROALBUMIN,UR 14.0 mg/L Normal NO RANGE EST. [facility] Comment on above: Performed By: #### L 502.0250 #### [facility] [address] [place], [address] Potassium measurement (mass/ volume)Ordered By: Ben Rodriguez on 04-08-2025 Potassium (Unsp spec) [Mass/Vol] 3.9 mmol/L 3.3-5.1 [facility] Random urine creatinine ina urement (mass/volume)Ordered By: Ben Rodriguez on 04-08-2025 Creatinine Unsp time (U) [Mass/Vol] 259.00 mg/dL 39.00-259.00 [facility] Screening total cholesterol/ high density lipoprotein (HDL) cholesterol ratioOrdered By: Ben Rodriguez on 04-08-2025 Cholesterol.total/Diann sterol in HDL [Mass ratio] 5.84 {ratio} [facility] Serum creatinine measurement (mass/volume)Ordered By: Ben Rodriguez on 04-08-2025 Creatinine [Mass/Vol] 0.86 mg/dL 0.70-1.20 [facility] Serum globulin measurementOr dered By: Ben Rodriguez on 04-08-2025 Globulin (S) [Mass/Vol] 2.5 g/dL 2.2-4.2 [facility] Serum glucose measurement (m ass/volume)Ordered By: Ben Rodriguez on 04-08-2025 Glucose [Mass/Vol] 160 mg/dL High 70-99 [facility] Serum or plasma alanine sheikh otransferase (ALT) measurementOrdered By: Ben Rodriguez on 04-08-2025 ALT [Catalytic activity/Vol] 11 U/L <47 [facility] Serum or plasma albumin ina urement (mass/volume)Ordered By: Ben Rodriguez on 04-08-2025 Albumin [Mass/Vol] 4.2 g/dL 3.5-5.0 [facility] Serum or plasma albumin/glob ulin mass ratioOrdered By: Ben Rodriguez on 04-08-2025 Albumin/Globulin [Mass ratio] 1.7 {ratio} 0.9-2.4 [facility] Serum or plasma alkaline corky sphatase measurementOrdered By: Ben Rodriguez on 04-08-2025 ALP [Catalytic activity/Vol] 94 U/L 40-129 [facility] Serum or plasma calcium ina urement (mass/volume)Ordered By: Ben Rodriguez on 04-08-2025 Calcium [Mass/Vol] 9.1 mg/dL 7.6-11.0 [facility] Serum or plasma cholesterol in HDL measurement (mass/volume)Ordered By: Ben Rodriguez on 04-08-2025 Cholesterol in HDL [Mass/Vol] 32 mg/dL Low >40 [facility] Comment on above: National Cholesterol Education Program (NCEP) guidelines:<40 mg/dL: Low HDL-cholesterol (major risk factor for CHD)>= 60 mg/dL: High HDL-cholesterol (negative risk factor for CHD)HDL-cholesterol is affected by a number of factors, e.g. smoking, exercise, hormones, sex and age. Serum or plasma cholesterol measurement (mass/volume)Ordered By: Ben Rodriguez on 04-08-2025 Cholesterol [Mass/Vol] 185 mg/dL <201 [facility] Comment on above: Cholesterol level, D esirable <200 mg/dLBorderline high cholesterol 200-239 mg/dLHigh cholesterol >=240 mg/dLRecommendations of the NCEP Adult Treatment Panel for the following risk-cutoff thresholds for the [place] population. Serum or plasma urea nitroge n measurement (mass/volume)Ordered By: Ben Rodriguez on 04-08-2025 Urea nitrogen [Mass/Vol] 16 mg/dL 4-19 [facility] Sodium levelOrdered By: Brady Rodriguez on 04-08-2025 Sodium [Moles/Vol] 139 mmol/L 133-145 [facility] TSH DL <= 0.005 mIU/L QnOrde red By: Ben Rodriguez on 04-08-2025 TSH Qn 1.790 uIU/mL 0.300-4.200 [facility] Thyroid Stim Hormone (TSH)on 04-08-2025 TSH 1.790 uIU/mL Normal 0.300-4.200 [facility] Comment on above: Performed By: #### L 502.0250 #### [facility] [place], [address] Total proteinOrdered By: Domitila Rodriguez on 04-08-2025 Protein [Mass/Vol] 6.7 g/dL 5.9-8.4 [facility] Triglycerides measurementOrd ered By: Ben Rodriguez on 04-08-2025 Triglyceride [Mass/Vol] 176 mg/dL <199 [facility] Comment on above: The drugs N-Acetylcy steine and Metamizole may falsely depress this assay. Normal range: <150 mg/dLBorderline High: 150-199 mg/dLHigh: 200-499 mg/dLVery High: >500 mg/dL Urine albumin measurement [facility] detection limit of 20 mg/L or less (mass/volume)Ordered By: Ben Rodriguez on 04-08-2025 Albumin DL <= 20 mg/L (U) [Mass/Vol] 14.0 mg/L NO RANGE EST. [facility] Vitamin D,25 Hydroxyon 04-08 Vitamin D 25-OH 22.0 ng/mL Low 30-100 [facility] Comment on above: Result Comment: Sarah min D Status Deficiency: <20 ng/mL (50nmol/L) Insufficiency: 20-30 ng/mL (50-75 nmol/L) Sufficiency: 30-100 ng/mL (75-250 nmol/L) Toxicity: >100 ng/mL (>250 nmol/L) Performed By: #### L 502.0250 #### [facility] [address] [place], [address] CNCOon 04-01-2025 CNCO Letter Text Normal [facility] CNOVon 04-01-2025 CNOV Office Visit (SLEWST ) ADDY BYRNES ([id number]) 1970 M Date Time Provider Department 04/01/25 10:00 AM SINDHU DIAL During your visit today, we recorded the following information about you: Pulse Respiration Blood pressure Weight 86/minute 16/minute 117/74 71.2 kg Sindhu Dial APRN.CNP 04/01/2025 3:28 PM Signed [facility] Follow up/ Established patient visit Recording using ambient Matchbook software for draft documentation of the visit was discussed with the patient/authorized motor vehicle field representative; all questions welcomed and answered. Patient/authorized motor vehicle field representative agreed to proceed Assessment/Plan from last visit: Date of last visit : 01/22/2025 ASSESSMENT/PLAN: 1. Intractable chronic migraine without aura and without status migrainosus - ICD9: 346.71, ICD10: G43.719 (primary diagnosis) 2. Spinal stenosis of cervical region - ICD9: 723.0, ICD10: M48.02 3. Cervicalgia - ICD9: 723.1, ICD10: M54.2 4. DISH (diffuse idiopathic skeletal hyperostosis) - ICD9: 721.6, ICD10: M48.10 5. Occipital neuralgia of left side - ICD9: 723.8, ICD10: M54.81 Patient with chronic headaches since childhood that appear to be of mixed nature including: migraine headaches with associated sensitivities such as photophobia; occipital neuralgia which in turn could exacerbate or be exacerbated by migraine; and cervicogenic headache which could also exacerbate occipital neuralgia and migraines. He has had distant head imaging since headaches that reportedly was unremarkable and exam is non focal. He has also had prior C spine imaging (not MRI) showing DISH and disc degeneration per pt and for which he is followed by chiropractor and for which therapy in the past has provided no relief. D/w pt in detail. Feel at this time, therapy by means of headache preventative meds is appropriate while also obtaining further workup of C spine pain which appears to be primary trigger for headaches at this time. Plan as follows: -For headaches and cervicalgia, start on gabapentin 300mg BID. SE and ADRs d/w pt. No reported renal disease but will get most recent CMP from PCP to confirm. -To evaluate C spine for possible significant stenosis, will obtain MRI C spine. Again, prior therapy without improvement of symptoms and XRs in past reportedly showing DISH. -Patient will follow up in 2-3 months for full in office exam including funduscopic examination. Further plan to be determined at that time depending on response to gabapentin. -D/w pt possible steroids in attempt to break headache cycle but DM, and uncertain at this time how elevated glucose is and not wanting to further exacerbate with steroids. 6. DALE (obstructive sleep apnea) - ICD9: 327.23, ICD10: G47.33 Prior diagnosis at outside office. Uncertain if still an issues at this time - may have previously been further exacerbating headaches, DM and HTN. Pt could not tolerate PAP in the past, but explained other treatment options if needed. Deutsch at this time is to determine if DALE still present and if so, how severe, as pt has had 25+ pound weight loss since that prior study with witnessed symptoms improving, including less snoring and pt not sleepy during day. To further evaluate, will get HSAT. Discussed with patient: the physiology of OSAS, medical conditions associated with OSAS (DM, HTN, CAD, Depression, Stroke, Headache...) and treatment options (UPPP, Dental appliances, CPAP...). Advised patient to avoid activities that could harm self or others when tired/sleepy, including driving and/or operating heavy machinery. Encouraged weight loss, and continued compliance with other medications. Kameron Rios MD CURRENT VISIT: 04/01/2025 INTERVAL HISTORY: 02/18/25 HSAT: CHRISTIE 21.7, supine CHRISTIE 71.5 Prior hx of DALE, didn't tolerate PAP therapy 1. Concerns: - Sleep Apnea - Patient is a 54-year-old male presenting with a history of sleep apnea. - Initially diagnosed with sleep apnea several years ago. - Previously tried CPAP therapy but could not tolerate it and experienced worsening sleep. - Recent home sleep study on 02/18/25 confirmed ongoing sleep apnea with an AHI of 21.7 events per hour, indicating moderate sleep apnea. - Supine AHI was 71.5 events per hour, indicating severe sleep apnea when on his back. - Non-supine AHI was 13.6 events per hour, indicating mild sleep apnea when not on his back. - Reports feeling terrible a lot of the time, with a history of headaches since childhood and tightness. - Patient has lost about 30 pounds recently but still experiences symptoms of sleep apnea. - Diagnosed with diabetes and reports difficulty managing blood sugar levels, with morning sugars rarely below 200 despite lifestyle changes and medication (Leah). - Patient has a history of nasal septoplasty and vasectomy, and had a (more content not included)... Normal [facility] CNOVon 03-03-2025 CNOV Office Visit ([facility] ) ADDY BYRNES ([id number]) 1970 M Date Time Provider Department 03/03/25 8:30 AM DAVEY CULLEN [facility] During your visit today, we recorded the following information about you: Temperature Pulse Respiration Blood pressure 97.8 degrees 95/minute 16/minute 122/82 Weight 72.3 kg Davey Cullen, REEL MAN.[facility] 03/03/2025 8:35 AM Signed SORE THROAT INSTRUCTIONS SORE THROAT OVERVIEW - Sore throat is a common problem during childhood, and is usually the result of a bacterial or viral infection. Although sore throat usually resolves without complications, it sometimes requires treatment with an antibiotic. There are some less common causes of sore throat that are serious or even life-threatening. This topic will discuss the most common causes and treatments of sore throat in children, as well as the warning signs of more serious conditions. SORE THROAT CAUSES - The most likely cause of a child's sore throat depends upon the child's age, the season, and the geographic area. While viruses are the most common cause of sore throat, bacteria are another common cause. Bacteria and viruses are spread from one person to another through hand contact. Hands get contaminated when the sick individual touches their nose or mouth and then touches another person directly (gdse-bc-vgjz contact) or indirectly (dbku-bo-hvzygx, such as doorknob, telephone, toys). It is difficult to determine the cause of sore throat based upon symptoms alone; an examination and laboratory test are recommended in most cases Viruses - There are many viruses that can cause pain and swelling of the throat. The most common include viruses that cause sore throat as part of an upper respiratory infection, such as the common cold. Other viruses that cause sore throat include influenza, adenovirus, and Jes-Le virus (the cause of mononucleosis). Symptoms - Symptoms that may occur with a viral infection can include a runny nose and congestion, irritation or redness of the eyes, cough, hoarseness, soreness in the roof of the mouth, a skin rash, or diarrhea. In addition, children with viral infections may have a fever and may feel miserable. A high fever does not necessarily mean that the child has a bacterial infection. Group A streptococcus - Group A streptococcus (GAS) is the name of the bacterium that causes strep throat. Although other bacteria can cause a sore throat, GAS is the most common bacterial cause; up to 30 percent of children with a sore throat will have GAS. Strep throat usually occurs during the winter and early spring, and is most common in school-age children and their younger siblings. Symptoms - Symptoms of strep throat in children older than 3 years often develop suddenly and include fever (temperature ?100.4?F or 38?C), headache, abdominal pain, nausea, and vomiting. Other symptoms can include swollen glands in the neck, white patches of pus in the back or sides of the throat, small red spots on the roof of the mouth, and swelling of the uvula. A cough and cold are not commonly seen in children with strep throat. Strep throat is uncommon in children younger than age 2 to 3 years. However, GAS infection can occur in younger children, and may cause a runny nose and congestion that is prolonged, low-grade fever (?101?F or 38.3?C), and tender glands in the neck. Infants younger than 1 year may be fussy and have a decreased appetite and low-grade fever. SORE THROAT TREATMENT - The treatment of sore throat depends upon the cause; strep throat is treated with an antibiotic while viral pharyngitis is treated with rest, pain relievers, and other measures to reduce symptoms. Strep throat - Strep throat is usually treated with an antibiotic, such as penicillin, or an antibiotic similar to penicillin (eg, amoxicillin). Children who are allergic to penicillin will be given an alternate antibiotic. The antibiotic is usually given in pill or liquid form two or three times per day. A one-time injection is also available, and may be recommended if a child is unwilling to take an oral medication. After completing 24 hours of antibiotics, the child is no longer contagious and may return to school. Symptoms usually improve within 1 to 2 days. However, it is important for the child to finish the entire course of treatment (usually 10 days). If a child does not begin to improve or worsens within 3 days, the child should be reevaluated. Throat pain can be treated with a non-prescription pain medication, if needed. (See 'Pain medications' below.) In addition, parents should monitor their child for dehydration, which can develop if the child is not willing to drink or eat due to a sore throat. (See 'Monitor for dehydration' below.) Viral throat pain - Sore throat caused by viral infections usually last 4 to 5 (more content not included)... Normal [facility] STREP A MOLECULAR (POC)on Procedural Control Valid [facility] Strep A (POCT) Negative Negative [facility] POLYSOMNOGRAM (PSG)/HOME SLE EP APNEA TEST (HSAT)on 02-18-2025 POLYSOMNOGRAM (PSG)/HOME SLEEP APNEA TEST (HSAT) [facility] at [address], [address], [place] [address] ; Home Sleep Apnea Test (HSAT) Study Report Name: ADDY BYRNES Date of Study: 02/18/2025 [facility]#: [id number] Age: 54 (: 1970) ESS: N/A Neck Circ. (cm): N/A Height (cm): 162.6 Weight (kg): 70.5 BMI: 26.7 Referring Provider: KAMERON RIOS JR Mailcode: [facility] Sleep history: The patient is a 54 year old male with a history of obstructive sleep apnea. PSG at [facility] on 07/12/2020 showed an overall AHI of 89.4. PAP titration on 07/27/2020 recommended CPAP 10 cmH2O. He reports fatigue and snoring. The patient presents for reassessment of obstructive sleep apnea. He does not endorse a habitual sleep position. Pertinent medical history: Allergic Rhinitis, Diabetes, Headaches, Migraine Medications: Neurontin, Prilosec Sleep procedure: PSG unattended Type III, minimum of 4 parameters ([id number]) Procedure: This study was performed using a Type III ambulatory PSG device and was unattended. The patient was instructed on proper use of the device by a registered creative technologist. The monitored parameters included heart rate, oxygen saturation, continuous airflow with thermistor and nasal pressure transducer, snoring via nasal pressure transducer, chest and abdominal effort, and body position. CHRISTIE definition: Respiratory event index (CHRISTIE), calculated as respiratory events x 60 / TRT (total recording time in minutes). Note: the apnea hypopnea index has been replaced by the respiratory event index for home sleep apnea test. Since the home sleep apnea test does not measure sleep, the CHRISTIE is most accurate index of respiratory events. The CHRISTIE is a surrogate of the AHI per the AASM Manual for Scoring of Sleep and Associated Events version 3. Apnea definition: The peak signal excursions drop by >90% of pre-event baseline using an oronasal thermal sensor (diagnostic study), PAP device flow (titration study) or an alternative apnea sensor (diagnostic study). The duration of the >90% drop in signal excursion is >=10 seconds. Hypopnea definition: The peak signal excursions drop by >= 30% of pre-event baseline using nasal pressure (diagnostic study), PAP device flow (titration study) or an alternative hypopnea sensor (diagnostic study). The duration of the >= 30% drop in signal excursion is >=10 seconds. There is a greater than or equal to 3% oxygen desaturation from pre-event baseline. RESPIRATORY DATA: The study started at 23:34:31 and ended at 05:29:05 and the total recording time was 354 minutes. By convention, sleep is assumed for the whole recording. Snoring was noted. There was a total of 128 respiratory events. Of these events, the total number of apneas was 0 (0 obstructive, 0 mixed, and 0 central (0.0%)) and 128 hypopneas. The central apnea index (KYUNG) was 0.0. The respiratory event index (CHRISTIE) was 21.7 events per hour of study time. The mean oxygen saturation during the study was 93.0%, with a minimum oxygen saturation of 79.0%. The patient spent 15.5 minutes at oxygen saturation measured less than 90% (4.9% of recording time) and 9.0 minutes at oxygen saturation measured at or less than 88% (2.5% of recording time). Time CHRISTIE/AHI Supine 49.5 min 71.5 Off-Supine 305.0 min 13.6 Total 354.5 min 21.7 ECG DATA: The average heart rate was 76 bpm with a range of 66 bpm to 102 bpm. ICSD DIAGNOSIS: Obstructive Sleep Apnea Syndrome [G47.33] IMPRESSION/RECOMMENDA TIONS: 1. This study confirms a diagnosis of at least moderate obstructive sleep apnea. 2. The results of this study may represent an underestimation of the degree of obstructive sleep apnea, especially hypopneas, because of the known limitations of HSAT, such as inability to record arousals because EEG is not recorded. 3. Untreated sleep apnea is associated with a variety of consequences including but not limited to hypertension, heart disease, stroke, obesity and daytime sleepiness that can affect normal daytime functioning. 4. PAP therapy is the usual first line therapy. Other treatment options for DALE may include weight loss, positional therapy, oral appliance, upper airway surgery, upper airway stimulation, treatment of allergies and avoidance of alcohol and sedating medications (such as opioids, benzodiazepines, and muscle relaxers) that can cause respiratory depression. INTERPRETING PHYSICIAN: Jason Adelr MD I attest that I have performed epoch by epoch review of the entire raw data and find this study to be technically adequate. Report Digitally Signed By: JASON ADLER MD (02/27/2025 7:04:16 PM) [facility]-06[facility]20[facility] (HEM[facility] ADDY BYRNES ([id number]) 1970 M Date Time Provider Department 02/06/25 GUZMAN VASQUEZ During your visit today, we recorded the following information about you: Guzman Vasquez DO 02/06/2025 8:33 AM Signed Can let him know the results of the CT scan show all the small nodules are unchanged from last fall. A new one observed in October has resolved. No need for further up CT chest. Since the cancer was stage I, no need for follow-up here. He should have a colonoscopy a year following his colon cancer surgery by Dr. José or whoever performed his initial screening colonoscopy. DO Denys Velazquez Pamela S, LPN 02/06/2025 9:51 AM Signed Pt. Notified of results via my chart. Will close after we see he has looked at results. CLARISSA Webster Kara, LPN 02/06/2025 3:48 PM Signed Read [facility] message. Judie Ribeiro LPN Allergies As of Date: 02/06/2025 (No Known Allergies) Date Reviewed: 01/22/2025 Reviewed by: Kameron Rios Jr., MD - Fully Assessed Reason for Visit: Results [95] Prescriptions as of 02/06/2025 - gabapentin (NEURONTIN) 300 mg capsule Take 1 capsule by mouth two times a day for 90 days. - acetaminophen (TYLENOL 8 HOUR) 650 mg CR tablet Take 650 mg by mouth every 8 hours as needed. - ibuprofen (ADVIL) 200 mg tablet Take 200 mg by mouth every 6 hours as needed. - lisinopril (ZESTRIL, PRINIVIL) 10 mg tablet Take 10 mg by mouth once daily. - metFORMIN (GLUCOPHAGE) 500 mg tablet Take 500 mg by mouth twice daily. - VALERIAN ROOT ORAL Take by mouth. - benzonatate (TESSALON PERLES) 100 mg capsule Take 1 capsule by mouth three times daily as needed for cough. - omeprazole (PRILOSEC) 20 mg capsule Take 20 mg by mouth as needed. - codeine phos/acetaminophen(TY LENOL-CODEINE #3 300 MG-30 MG TAB) Take one(1) tablet every four(4) to six(6) hours as needed for pain. - multivitamins(DAILY VITAMIN TAB) Take one(1) tablet daily. - COMPOUNDED PRESCRIPTION HOLY TEA, DRINK TWICE DAILY - lorazepam(ATIVAN 1 MG TAB) Take two tabs 30min. prior to procedure Problem List As Of Date 02/06/2025 Noted Resolved STERILIZATION [Z30.2] 10/30/2008 Malignant neoplasm of splenic flexure (HCC) [C1*07/04/2024 Encounter Status:Closed by JUDIE RIBEIRO on 02/06/25 Normal [facility] CT CHEST WO IVCONon 02-05-20 CT CHEST WO IVCON * * *Final Report* * * DATE OF EXAM: Feb 04 2025 8:43AM [facility] 0541 - CT CHEST WO IVCON / PROCEDURE REASON: Lung nodules * * * * Physician Interpretation * * * * EXAMINATION: CHEST CT WITHOUT CONTRAST CLINICAL HISTORY: Lung nodules Technique: Spiral CT acquisition of the chest from the thoracic inlet to the upper abdomen without contrast. MQ: CTCWO_6 CT Radiation dose: Integrated Dose-length product (DLP) for this visit = 211 mGy*cm CT Dose Reduction Employed: Automated exposure control(AEC) and iterative recon Comparison: 11/05/2024, 07/18/2024 RESULT: Limitations: None. Lines, tubes, and devices: None. Lung parenchyma and airways: There are stable subcentimeter pulmonary nodules. For example, there is a stable, approximately 3 mm nodule seen within the anterior segment right upper lobe (series 5, image #69). There is a stable, approximately 3 mm nodule seen within the superior segment of the right lower lobe (series 5, image #128). Other pulmonary nodules are also stable. For example, there is a stable, approximately 6 mm nodule seen within the left lower lobe (series 5, image #151). Nodule described as new within the left apex on the prior examination has resolved in the interval and was likely infectious or inflammatory in etiology. No new pulmonary nodule is identified on today's examination. There is no pneumothorax or endobronchial lesion. Pleural space: There is no pleural effusion. Lower neck, lymph nodes, and mediastinum: There are no pathologically enlarged axillary, mediastinal, or hilar nodes. Heart, pericardium, and thoracic vessels: The heart is normal in size. There is no significant pericardial effusion. Bones and soft tissues: There is multilevel degenerative change seen within the thoracic spine. No destructive bony lesion. There is diffuse idiopathic skeletal hyperostosis. Upper abdomen: Nonspecific wall thickening of the stomach likely relates to underdistention. There is mild, nonspecific bilateral perinephric fat stranding. Postoperative changes are again seen involving the visualized colon. Moderate stool burden. The gallbladder is relatively collapsed. Prominent, less than 1 cm abdominal lymph nodes are likely reactive. IMPRESSION: 1. Stable subcentimeter pulmonary nodules, measuring up to 6 mm in size. The nodule within the left apex described as new on the prior examination has resolved in the interval and was likely infectious or inflammatory in etiology. No new pulmonary nodule identified on today's examination. 2. No ivana lymphadenopathy is seen within the chest. Diploma Medical Assistant: TREVER Transcribe Date/Time: Feb 05 2025 10:10A Dictated by : TIAGO LONG MD This examination was interpreted and the report reviewed and electronically signed by: TIAGO LONG MD on Feb 05 2025 10:16AM EST [id number] Normal [facility] CNPNon 11-28-2024 CNPN Telephone (HEMAWS) ADDY BYRNES ([id number]) 1970 M Date Time Provider Department 11/28/24 GUZMAN VASQUEZ During your visit today, we recorded the following information about you: Judie Ribeiro LPN 11/28/2024 10:45 AM Signed Ren with [facility] calling asking if ok with you if pt can restart Manjaro. Was told to stop prior to resection of colonic mass this past fall. OV here 07/04/24 A1C 9.1 CLARISSA Garyr phone [phone] Guzman Vasquez DO 11/28/2024 12:49 PM Signed I'm supposing Dr. José asked him to hold it for surgery since that class of medications can delay gastric emptying and increase the chance of vomiting/aspiration with general anesthesia. So as far as I'm concerned there is no reason not to restart it. DO Gema Velazquez Kara, LPN 11/28/2024 1:08 PM Signed Contacted Ren, notified. Judie Ribeiro LPN Allergies As of Date: 11/28/2024 (No Known Allergies) Date Reviewed: 07/04/2024 Reviewed by: Ronen Bender MA - Fully Assessed Reason for Visit: Patient Question [2347] Prescriptions as of 11/28/2024 - acetaminophen (TYLENOL 8 HOUR) 650 mg CR tablet Take 650 mg by mouth every 8 hours as needed. - ibuprofen (ADVIL) 200 mg tablet Take 200 mg by mouth every 6 hours as needed. - lisinopril (ZESTRIL, PRINIVIL) 10 mg tablet Take 10 mg by mouth once daily. - metFORMIN (GLUCOPHAGE) 500 mg tablet Take 500 mg by mouth twice daily. - VALERIAN ROOT ORAL Take by mouth. - benzonatate (TESSALON PERLES) 100 mg capsule Take 1 capsule by mouth three times daily as needed for cough. - omeprazole (PRILOSEC) 20 mg capsule Take 20 mg by mouth as needed. - codeine phos/acetaminophen(TY LENOL-CODEINE #3 300 MG-30 MG TAB) Take one(1) tablet every four(4) to six(6) hours as needed for pain. - multivitamins(DAILY VITAMIN TAB) Take one(1) tablet daily. - COMPOUNDED PRESCRIPTION HOLY TEA, DRINK TWICE DAILY - lorazepam(ATIVAN 1 MG TAB) Take two tabs 30min. prior to procedure Problem List As Of Date 11/28/2024 Noted Resolved STERILIZATION [Z30.2] 10/30/2008 Malignant neoplasm of splenic flexure (HCC) [C1*07/04/2024 Encounter Status:Closed by JUDIE RIBEIRO on 11/28/24 Normal [facility] Endocrinology Visit Reporton 11-27-2024 Endocrinology Visit Report [facility] [address] [place] [address] OFFICE VISIT Date of Service: 11/27/24 MR#: [id number] Acct: [id number] Name: ADDY BYRNES Rep #: [id number] : 1970 Provider: VARSHA porter Age/Sex: 54/M Location: [facility] [place] Status: Signed Intake Vital Signs 07/16/24 15:30 11/27/24 11:48 Height 5 ft 3 in 5 ft 3 in Weight: 158 lb 162 lb 6 oz BMI 28.0 28.8 BP 112/77 130/83 H Blood Pressure Location Rt brachial Lt brachial Position Sitting Sitting Pulse 94 88 Pulse Source Monitor Monitor Pulse Oximetry (%) 95 97 Oxygen Delivery Method room air room air Intake Visit Reasons: 4 M FU Chief Complaint: f/u diabetes Is patient in pain?: No Allergies Environmental Allergies: Uncoded (seasonal) Allergy (Verified 11/27/24 11:54) PT UNABLE TO RESPOND-NEEDS F/U Medications ???Medication ???Instructions ???Recorded ???Confirmed ???Type empagliflozin 25 mg tablet 25 mg PO QAM #30 tabs 07/16/24 Rx (Jardiance) PFSH Medical History Colonic mass Wears glasses Arthritis Restless legs Back pain Migraine headache Dietary restriction History of hiatal hernia Gastric reflux CPAP (continuous positive airway pressure) dependence History of deviated nasal septum DMII (diabetes mellitus, type 2) HTN (hypertension) Family history of colon cancer in father Surgical History S/P left hemicolectomy Hx of colonoscopy Family History Father CVA (cerebral vascular accident) Colon cancer Hypertension Heart disease Social History household members: spouse current occupational status: employed Smoking Status: Never smoker Electronic Cigarette Use: not used second hand exposure: No alcohol intake: never substance use type: does not use HPI HPI Chief Complaint: f/u diabetes Details: ADDY BYRNES, is a 54 M who presents to the office today for evaluation and management of diabetes. A1C today is 9.1%, increased from 07/16/24 at 8.7%. He has gained 4 lbs since that time. He was placed on Jardiance 25 mg once daily at his last appt. He was previously on Mounjaro; however, he had a resection of colonic mass and GLP-1 was placed on hold by oncology. He states that he feels significantly hungrier on Jardiance. He is trying to watch his soda intake; however, he is still struggling to discontinue use. BP is stable. He was not able to make his appt with neurology/somnology to pursue evaluation/management for sleep apnea. Labs are up to date and unremarkable. Denies any acute concerns. ROS Const Constitutional: Positive for headache(s); No fatigue or weight change ENT ENT: Positive for headache(s); No dizziness/vertigo Cardio Cardiology: No chest pain at rest, chest pain with exertion, shortness of breath or palpitations Neuro Neurology: Positive for headache(s) Skin Skin: No wounds Endo Endocrine: No fatigue or weight change Exam Const General: cooperative, healthy appearing, comfortable and no acute distress Nutritional Appearance: overweight Orientation: alert, awake and oriented x3 [facility]: normal to inspection Ears: hearing grossly normal bilaterally Nose: external nose normal Face and sinus: normal facial exam Eyes General: appearance normal, both eyes and all related structures Alignment and Position: alignment normal Sclera: sclerae normal Neck Neck: normal visual inspection Chest Chest palpation inspection: normal inspection of the chest Resp Effort Inspection: normal respiratory effort, able to speak in complete sentences, symmetric chest movement, normal respiratory pattern, no audible wheezes and no cough Auscultation: Bilateral: Clear to Auscultation Cardio Rate: regular rate Rhythm: regular rhythm Heart Sounds: S1 normal and S2 normal GI Inspection: normal to inspection Musc Cervical Spine: normal cervical lordosis Thoracic/Lumbar Spine: thoracic and lumbar spine normal to inspection Skin General: no rashes or lesions noted Lesions: no lesions Rashes: no rashes Trauma: no lacerations or abrasions Wounds: no wounds Neuro General: patient alert, patient awake and patient oriented x3 Cognition: normal cognition Speech: speech normal Gait: normal gait Extrem General: normal to inspection and no pedal edema Psych Appearance: grossly normal Mental Status: mental status grossly normal Mood: congruent mood Affect: normal affect Speech and Movement: speech and movement normal Attitude: cooperative Thought Process: normal Thought Cont (more content not included)... Normal [facility] 11-09-2024 [facility] Telephone (MEY) ADDY BYRNES ([id number]) 1970 M Date Time Provider Department 11/09/24 GUZMAN VASQUEZ During your visit today, we recorded the following information about you: Pedro Guzman AndieDO 11/09/2024 2:29 PM Signed Let him know the chest CT scan showed all the nodules were stable. The radiologist observed a new very small 3 mm nodule in the very top of the left lung. Does not appear that it was there before but has a benign (inflammatory) appearance. Recommend 1 more 3-month follow-up CT chest. If stable then no further imaging indicated. DO Gema Peters Kara, LPN 11/10/2024 8:16 AM Signed Pt notified. Aware he will be called to get a CT scan scheduled. Please assist him in scheduling. CLARISSA Gary Melissa 11/10/2024 8:46 AM Signed Scheduled with patient Allergies As of Date: 11/09/2024 (No Known Allergies) Date Reviewed: 07/04/2024 Reviewed by: Ronen Bender MA - Fully Assessed Reason for Visit: Results [95] Primary Visit Diagnosis:Lung nodules [R91.8] Order(s):CT CHEST WO ELICEO [[id number]] Order #: [id number] FUTURE Prescriptions as of 11/10/2024 - acetaminophen (TYLENOL 8 HOUR) 650 mg CR tablet Take 650 mg by mouth every 8 hours as needed. - ibuprofen (ADVIL) 200 mg tablet Take 200 mg by mouth every 6 hours as needed. - lisinopril (ZESTRIL, PRINIVIL) 10 mg tablet Take 10 mg by mouth once daily. - metFORMIN (GLUCOPHAGE) 500 mg tablet Take 500 mg by mouth twice daily. - VALERIAN ROOT ORAL Take by mouth. - benzonatate (TESSALON PERLES) 100 mg capsule Take 1 capsule by mouth three times daily as needed for cough. - omeprazole (PRILOSEC) 20 mg capsule Take 20 mg by mouth as needed. - codeine phos/acetaminophen(TY LENOL-CODEINE #3 300 MG-30 MG TAB) Take one(1) tablet every four(4) to six(6) hours as needed for pain. - multivitamins(DAILY VITAMIN TAB) Take one(1) tablet daily. - COMPOUNDED PRESCRIPTION HOLY TEA, DRINK TWICE DAILY - lorazepam(ATIVAN 1 MG TAB) Take two tabs 30min. prior to procedure Problem List As Of Date 11/09/2024 Noted Resolved STERILIZATION [Z30.2] 10/30/2008 Malignant neoplasm of splenic flexure (HCC) [C1*07/04/2024 Encounter Status:Closed by BRITTNY CARRILLO on 11/10/24 Normal [facility] CT CHEST WO IVCONon 11-05-19 CT CHEST WO IVCON * * *Final Report* * * DATE OF EXAM: Nov 05 2024 8:40AM [facility] 0541 - CT CHEST WO IVCON / PROCEDURE REASON: Malignant neoplasm of splenic flexure (HCC) * * * * Physician Interpretation * * * * EXAMINATION: CHEST CT WITHOUT CONTRAST CLINICAL HISTORY: Lung nodules. Colon carcinoma. Technique: Spiral CT acquisition of the chest from the thoracic inlet to the upper abdomen without contrast. MQ: CTCWO_6 CT Radiation dose: Integrated Dose-length product (DLP) for this visit = 204 mGy*cm CT Dose Reduction Employed: Automated exposure control(AEC) and iterative recon Comparison: 07/18/2024 RESULT: Limitations: None. Lines, tubes, and devices: None. Lung parenchyma and airways: There are stable subcentimeter pulmonary nodules. For example, there is a stable, approximately 3 mm nodule seen within the anterior segment right upper lobe (series 5, image #65). There is a stable, approximately 3 mm nodule seen within the anterior segment of the right upper lobe (series 5, image #117). Other pulmonary nodules are also stable. For example, there is a stable, approximately 6 mm nodule seen within the left lower lobe (series 5, image #138). There has been interval development of a groundglass attenuation nodule within left apex, measuring 3 mm in size (series 5, image #22). Continued interval surveillance is recommended. There is no pneumothorax or endobronchial lesion. Pleural space: There is no pleural effusion. Lower neck, lymph nodes, and mediastinum: There are no pathologically enlarged axillary, mediastinal, or hilar nodes. Heart, pericardium, and thoracic vessels: The heart is normal in size. There is no significant pericardial effusion. Bones and soft tissues: There is multilevel degenerative change seen within the thoracic spine. No destructive bony lesion. There is diffuse idiopathic skeletal hyperostosis. Upper abdomen: Nonspecific wall thickening of the stomach likely relates to underdistention. There is mild, nonspecific bilateral perinephric fat stranding. Postoperative changes are again seen involving the visualized colon. The gallbladder is relatively collapsed. Again seen is a cyst arising from the left kidney, measuring approximately 2.5 x 1.8 cm (series 5, image #187). Additionally, there are right renal cysts. Prominent, less than 1 cm abdominal lymph nodes are likely reactive. IMPRESSION: 1. Although many of the subcentimeter pulmonary nodules have prior examination are stable, there has been development of a groundglass attenuation nodule within the left apex, measuring 3 mm in size. Given history of colon carcinoma, continued interval surveillance recommended. 2. No ivana lymphadenopathy is seen within the chest. Diploma Medical Assistant: [facility] Transcribe Date/Time: Nov 07 2024 6:50A Dictated by : TIAGO LONG MD This examination was interpreted and the report reviewed and electronically signed by: TIAGO LONG MD on Nov 07 2024 6:57AM EST [id number] Normal [facility] [place] 08-01-2024 [facility] Telephone (HEMAWS) ADDY BYRNES ([id number]) 1970 M Date Time Provider Department 08/01/24 GUZMAN VASQUEZ During your visit today, we recorded the following information about you: Keyanna Doe 08/01/2024 9:30 AM Signed Patient requesting results from 07/[address] Guzman Vasquez DO 08/04/2024 5:[address] of the chest demonstrated a few small nodules scattered throughout the lungs. Statistically these are very likely to be benign given where the tumor was located in the colon and that it was a stage I tumor. However, to assure stability, recommend repeat CT chest in 2 to 3 months. Can be done without IV contrast. Please pend order. The MRI demonstrated benign findings in the liver. Spleen was interpreted as being slightly enlarged but the CT scan he had of the abdomen pelvis at [facility] which is a more accurate way of measuring the spleen shows to be normal size. DO Denys Velazquez Pamela S, LPN 08/05/2024 8:20 AM Signed Spoke with pt. Concerning recent CT results, Dr. Vasquez recommends repeat CT chest in 2 to 3 months. Can be done without IV contrast. Instructed our PSS will reach out to him to get scan scheduled. Pt. Voiced understanding. Dr. Vasquez please sign pended order PSS please reach out to pt. For scheduling. Candida Mcfarlane LPN Message also sent to pt. Via my chart. Sofya Winter 08/05/2024 9:17 AM Signed Spoke with patient and scheduled. Sofya Winter Allergies As of Date: 08/01/2024 (No Known Allergies) Date Reviewed: 07/04/2024 Reviewed by: Ronen Bender MA - Fully Assessed Reason for Visit: Results [95] Primary Visit Diagnosis:Malignant neoplasm of splenic flexure (HCC) [C18.5] Order(s):CT CHEST WO ELICEO [[id number]] Order #: [id number] FUTURE Prescriptions as of 08/05/2024 - acetaminophen (TYLENOL 8 HOUR) 650 mg CR tablet Take 650 mg by mouth every 8 hours as needed. - ibuprofen (ADVIL) 200 mg tablet Take 200 mg by mouth every 6 hours as needed. - lisinopril (ZESTRIL, PRINIVIL) 10 mg tablet Take 10 mg by mouth once daily. - metFORMIN (GLUCOPHAGE) 500 mg tablet Take 500 mg by mouth twice daily. - VALERIAN ROOT ORAL Take by mouth. - benzonatate (TESSALON PERLES) 100 mg capsule Take 1 capsule by mouth three times daily as needed for cough. - omeprazole (PRILOSEC) 20 mg capsule Take 20 mg by mouth as needed. - codeine phos/acetaminophen(TY LENOL-CODEINE #3 300 MG-30 MG TAB) Take one(1) tablet every four(4) to six(6) hours as needed for pain. - multivitamins(DAILY VITAMIN TAB) Take one(1) tablet daily. - COMPOUNDED PRESCRIPTION HOLY TEA, DRINK TWICE DAILY - lorazepam(ATIVAN 1 MG TAB) Take two tabs 30min. prior to procedure Problem List As Of Date 08/01/2024 Noted Resolved STERILIZATION [Z30.2] 10/30/2008 Malignant neoplasm of splenic flexure (HCC) [C1*07/04/2024 Encounter Status:Closed by SOFYA WINTER on 08/05/24 Normal [facility] Surgery Visit Reporton 07-30 Surgery Visit Report [facility] [address] [place] [address] OFFICE VISIT Date of Service: 07/30/24 MR#: [id number] Acct: [id number] Name: ADDY BYRNES Rep #: [id number] : 1970 Provider: Dr. Lamont nguyen MD Age/Sex: 53/M Location: [facility] Status: Signed Intake Vital Signs 06/24/24 17:11 07/16/24 15:30 07/30/24 08:14 Height 5 ft 3 in 5 ft 3 in Weight: 158 lb 158 lb 6 oz BMI 28.0 BP 112/77 Blood Pressure Location Rt brachial Position Sitting Pulse 94 Pulse Source Monitor Pulse Oximetry (%) 95 Oxygen Delivery Method room air Intake Visit Reasons: S/P HEMICOLECTOMY Chief Complaint: s/p hemicolectomy Is patient in pain?: No Allergies Environmental Allergies: Uncoded (seasonal) Allergy (Verified 07/30/24 08:11) PT UNABLE TO RESPOND-NEEDS F/U Medications ???Medication ???Instructions ???Recorded ???Confirmed ???Type tirzepatide 2.5 mg/0.5 mL 2.5 mg subcut TU WEIGHT LOSS 05/28/24 07/30/24 History subcutaneous pen injector (Mounjaro) empagliflozin 25 mg tablet 25 mg PO QAM #30 tabs 07/16/24 07/30/24 Rx (Jardiance) Subjective Details: Patient is doing well with no complaints Objective Details: Incision is healed well Coding Level of Care Code Global Post Op Diagnoses S/P left hemicolectomy Z90.49 PFSH Medical History Colonic mass Wears glasses Arthritis Restless legs Back pain Migraine headache Dietary restriction History of hiatal hernia Gastric reflux CPAP (continuous positive airway pressure) dependence History of deviated nasal septum DMII (diabetes mellitus, type 2) HTN (hypertension) Family history of colon cancer in father Surgical History S/P left hemicolectomy Hx of colonoscopy Family History Father CVA (cerebral vascular accident) Colon cancer Hypertension Heart disease Social History household members: spouse current occupational status: employed Smoking Status: Never smoker Electronic Cigarette Use: not used second hand exposure: No alcohol intake: never substance use type: does not use Assessment and Plan (No Qualifiers) Assessment and Plan (1) S/P left hemicolectomy: Status: Acute Plan: Patient doing well after splenic flexure resection. Follow-up as needed. Colonoscopy in 1 year. Lamont José MD Pager: [facility] [address] [place] [address] [address] [place] [address] Office: 07/30/24 0856 Date Lamont José MD [facility] Signature: Date (if applicable) CC: Normal [facility] CT CHEST WO IVCONon 07-18-20 CT CHEST WO IVCON * * *Final Report* * * DATE OF EXAM: Jul 18 2024 10:52AM [facility] 0541 - CT CHEST WO IVCON / PROCEDURE REASON: Malignant neoplasm of splenic flexure (HCC) * * * * Physician Interpretation * * * * EXAMINATION: CHEST CT WITHOUT CONTRAST CLINICAL HISTORY: Colon cancer. Technique: Spiral CT acquisition of the chest from the thoracic inlet to the upper abdomen without contrast. MQ: [id number]_6 CT Radiation dose: Integrated Dose-length product (DLP) for this visit = 200 mGy*cm CT Dose Reduction Employed: Automated exposure control(AEC) and iterative recon Comparison: None RESULT: Limitations: None. Lines, tubes, and devices: None. Lung parenchyma and airways: The central airways are patent. There are a few solid pulmonary nodules identified. For example, there are nodules in the left lung measuring up to 6 mm, series 6 images 26, 77, 93, 141 and 149. There are nodules in the right lung measuring up to 8 mm, series 6 images 66, 110, 116, 130 and 142. No mass lesion identified. No consolidations. Pleural space: No pleural effusion. No pleural thickening. Lower neck, lymph nodes, and mediastinum: The imaged thyroid gland is normal. No lymphadenopathy in the supraclavicular, axillary, mediastinal, or hilar regions. Heart, pericardium, and thoracic vessels: The thoracic aorta and main pulmonary artery are normal in caliber. The cardiac chambers are normal in size. No coronary artery atherosclerotic calcifications are noted, although the study is not optimized for coronary assessment. No pericardial effusion or thickening. Bones and soft tissues: The spine shows degenerative changes. No destructive bone lesion. Chest wall is unremarkable. Upper abdomen: Limited study through the upper abdomen demonstrates surgical sutures along the transverse colon. There is soft tissue stranding/edema in the anterior abdomen likely involving the omentum. Localizer images: No additional findings. IMPRESSION: Multiple bilateral lung nodules measuring up to 8 mm. Continued follow-up is suggested in this patient with history of colon cancer. No thoracic lymphadenopathy. Abdominal findings as described above. Diploma Medical Assistant: TREVER Transcribe Date/Time: Jul 23 2024 1:16P Dictated by : ALAINA RAE MD This examination was interpreted and the report reviewed and electronically signed by: ALAINA RAE MD on Jul 23 2024 4:24PM EST [id number] Normal [facility] MRI LIVER WO/W IVCONon 07-18 MRI LIVER WO/W IVCON * * *Final Report* * * DATE OF EXAM: Jul 18 2024 11:40AM [facility] 0727 - MRI LIVER WO/W IVCON / PROCEDURE REASON: multiple diagnoses * * * * Physician Interpretation * * * * MRI LIVER WO/W IVCON COMPARISON: Outside facility CT of the abdomen/pelvis dated 06/04/2024 CLINICAL HISTORY: History of resected stage I colon cancer. Question small liver lesions on CT. TECHNIQUE: 1.5 T MRI LIVER WO/W IVCON was performed. 10 mL of Eovist was administered. FINDINGS: Liver: Normal liver morphology. 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 These correspond to the findings noted on the previous CT. No suspicious liver lesion is identified. Biliary: No bile duct dilation. Unremarkable gallbladder. Spleen: Mild splenomegaly up to 13.1 cm. No splenic mass. Pancreas: No mass or duct dilation. Adrenals:No mass. Kidneys: Incidental subcentimeter T2 hyperintense nonenhancing Bosniak type I cyst noted in both kidneys. No solid mass or collecting system dilation. GI tract: No small or large bowel dilation. Lymph nodes: No abdominal lymphadenopathy. Mesentery/Peritoneum: Interval postsurgical changes from presumed partial colonic resection in the left upper quadrant, with a small amount of free fluid noted that is likely postoperative, as well as mild postoperative edema within the mesenteric fat. Retroperitoneum: No mass Vasculature: - Abdominal aorta: No aneurysm. - Celiac and SMA: - Portal venous system (SMV, splenic vein, portal vein and branches): Patent. - Hepatic veins: Patent. Bones/Soft Tissues: Bone marrow signal is within normal limits. Lower thorax: Unremarkable. IMPRESSION: 1. No suspicious liver lesion identified. There are two small vascular malformations in the right hepatic lobe which correspond to the findings noted on the previous CT. 2. Interval postsurgical changes from a presumed partial colonic resection at the distal transverse colon, with a small amount of fluid and postoperative edema noted in the adjacent mesenteric fat. 3. No MR evidence of metastatic disease in the abdomen. 4. Mild splenomegaly up to 13.1 cm. Diploma Medical Assistant: TREVER Transcribe Date/Time: Jul 24 2024 10:29A Dictated by : DON HAHN MD This examination was interpreted and the report reviewed and electronically signed by: DON HAHN MD on Jul 24 2024 10:43AM EST [id number] Normal [facility] Endocrinology Visit Reporton 07-16-2024 Endocrinology Visit Report [facility] [address] [place] [address] OFFICE VISIT Date of Service: 07/16/24 MR#: [id number] Acct: [id number] Name: ADDY BYRNES Rep #: [id number] : 1970 Provider: VARSHA porter Age/Sex: 53/M Location: [facility] Status: Signed Intake Vital Signs 03/17/24 14:59 04/14/24 08:52 06/24/24 17:11 07/16/24 15:30 Height 5 ft 3 in 5 ft 3 in 5 ft 3 in 5 ft 3 in Weight: 158 lb BMI 28.0 BP 112/77 Blood Pressure Location Rt brachial Position Sitting Pulse 94 Pulse Source Monitor Pulse Oximetry (%) 95 Oxygen Delivery Method room air Intake Visit Reasons: 3 M FU Chief Complaint: f/u diabetes Is patient in pain?: No Allergies Environmental Allergies: Uncoded (seasonal) Allergy (Verified 07/08/24 13:56) PT UNABLE TO RESPOND-NEEDS F/U Medications ???Medication ???Instructions ???Recorded ???Confirmed ???Type tirzepatide 2.5 mg/0.5 mL 2.5 mg subcut TU WEIGHT LOSS 05/28/24 07/16/24 History subcutaneous pen injector (Mounjaro) acetaminophen 325 mg capsule 650 mg PO Q4H PRN pain 06/18/24 07/16/24 History (Tylenol) ondansetron 4 mg disintegrating 4 mg PO Q8H PRN nausea and 06/28/24 07/16/24 Rx tablet vomiting 3 days #10 tabs empagliflozin 25 mg tablet 25 mg PO QAM #30 tabs 07/16/24 07/16/24 Rx (Jardiance) PFSH Medical History Colonic mass Wears glasses Arthritis Restless legs Back pain Migraine headache Dietary restriction History of hiatal hernia Gastric reflux CPAP (continuous positive airway pressure) dependence History of deviated nasal septum DMII (diabetes mellitus, type 2) HTN (hypertension) Family history of colon cancer in father Surgical History S/P left hemicolectomy Hx of colonoscopy Family History Father CVA (cerebral vascular accident) Colon cancer Hypertension Heart disease Social History household members: spouse current occupational status: employed Smoking Status: Never smoker Electronic Cigarette Use: not used second hand exposure: No alcohol intake: never substance use type: does not use HPI HPI Chief Complaint: f/u diabetes Details: ADDY BYRNES, is a 53 M who presents to the office today for evaluation and management of diabetes. A1C today is 8.7%, improved from 03/17/24 at 9.7%. He did have A1C in April however that was down to 7.6%. At initial appt in March of this year, he was placed on Mounjaro 2.5 mg qweek and instructed to discontinue soda. He was doing well; however, he was diagnosed with a colonic mass in May of this year and had bowel resection. Mounjaro was placed on hold by oncology. He admits that he has resumed daily soda and not following diabetic dietary recommendations. Hx of chronic headaches. He encouraged to establish with neurology was placed on propranolol 10 mg once daily without improvement in symptoms. Unfortunately, he was unable to make scheduled appt with neurology. Hx of sleep apnea, he is unable to tolerate mask. Labs are up to date. He has MRI scheduled this week to evaluate liver. Denies any acute concerns. ROS Const Constitutional: Positive for headache(s) and weight change; No fatigue ENT ENT: Positive for headache(s); No dizziness/vertigo Cardio Cardiology: No chest pain at rest, chest pain with exertion, shortness of breath or palpitations Neuro Neurology: Positive for headache(s) Skin Skin: No wounds Endo Endocrine: Positive for weight change; No fatigue Exam Const General: cooperative, healthy appearing, comfortable and no acute distress Nutritional Appearance: overweight Orientation: alert, awake and oriented x3 HENMT Head: normal to inspection Ears: hearing grossly normal bilaterally Nose: external nose normal Face and sinus: normal facial exam Eyes General: appearance normal, both eyes and all related structures Alignment and Position: alignment normal Sclera: sclerae normal Neck Neck: normal visual inspection Resp Effort Inspection: normal respiratory effort, able to speak in complete sentences, symmetric chest movement, normal respiratory pattern, no audible wheezes and no cough Musc Cervical Spine: normal cervical lordosis Thoracic/Lumbar Spine: thoracic and lumbar spine normal to inspection Skin General: no rashes or lesions noted Lesions: no lesions Rashes: no rashes Trauma: no lacerations or abrasions Wounds: no wounds Neuro General: patient alert, patient awake and patient oriented x3 Cognition: normal cognition Speech: speech normal Gait: (more content not included)... Normal [facility] Surgery Visit Reporton 07-08 Surgery Visit Report [facility] [address] [place] [address] OFFICE VISIT Date of Service: 07/08/24 MR#: [id number] Acct: [id number] Name: ALFONSOKELSEAADDY Yara Rep #: [id number] : 1970 Provider: Dr. Lamont nguyen MD Age/Sex: 53/M Location: [facility] Status: Signed Intake Vital Signs 06/24/24 17:11 07/08/24 13:56 Height 5 ft 3 in Weight: 155 lb 4 oz Intake Visit Reasons: HEMICOLECTOMY 06-23 Chief Complaint: hemicolectomy Is patient in pain?: No Allergies Environmental Allergies: Uncoded (seasonal) Allergy (Verified 07/08/24 13:56) PT UNABLE TO RESPOND-NEEDS F/U Medications ???Medication ???Instructions ???Recorded ???Confirmed ???Type propranolol 10 mg tablet 10 mg PO QHS MIGRAINES #30 tabs 03/17/24 07/08/24 Rx tirzepatide 2.5 mg/0.5 mL 2.5 mg subcut TU WEIGHT LOSS 05/28/24 07/08/24 History subcutaneous pen injector (Mounjaro) acetaminophen 325 mg capsule 650 mg PO Q4H PRN pain 06/18/24 07/08/24 History (Tylenol) ondansetron 4 mg disintegrating 4 mg PO Q8H PRN nausea and 06/28/24 07/08/24 Rx tablet vomiting 3 days #10 tabs Subjective Details: The patient is doing well. He reports intermittent left-sided abdominal pain. He reports normal bowel movements and tolerating diet normally. Objective Details: Abdomen is soft and nontender. Incision is healing well. Coding Level of Care Code Global Post Op Diagnoses S/P left hemicolectomy Z90.49 [facility] Medical History (Updated 07/06/24 @ 00:01 by Braeden Green) Colonic mass Wears glasses Arthritis Restless legs Back pain Migraine headache Dietary restriction History of hiatal hernia Gastric reflux CPAP (continuous positive airway pressure) dependence History of deviated nasal septum DMII (diabetes mellitus, type 2) HTN (hypertension) Family history of colon cancer in father Surgical History S/P left hemicolectomy Hx of colonoscopy Family History Father CVA (cerebral vascular accident) Colon cancer Hypertension Heart disease Social History household members: spouse current occupational status: employed Smoking Status: Never smoker Electronic Cigarette Use: not used second hand exposure: No alcohol intake: never substance use type: does not use Assessment and Plan (No Qualifiers) Assessment and Plan (1) S/P left hemicolectomy: Status: Acute Plan: The patient had splenic flexure resection for colon cancer. He is seeing Dr. Vasquez. He will follow-up with me in 2 to 3 weeks. He may return to light duty. Lamont José MD Pager: [facility] [address] [place] [address], [address] [place] [address] Office: 07/08/24 5365 Date Lamont José MD Cosigner Signature: Date (if applicable) CC: Normal [facility] CNOVSPon 07-04-2024 CNOVSP Visit (SP) Office (HEMRAYRAY) ADDY BYRNES ([id number]) 1970 M Date Time Provider Department 07/04/24 9:00 AM GUZMAN VASQUEZ During your visit today, we recorded the following information about you: Temperature Pulse Blood pressure Weight 98.5 degrees 90/minute 115/75 70.5 kg Height 1.626 m Guzman Vasquez DO 08/04/2024 4:59 PM Addendum Patient referred by Dr. Lamont José for colon cancer. HPI: The patient is a 53 yo male with a PMH significant for DM2, DALE (CPAP), HTN, hiatal hernia, reflux and back pain. Underwent initial screening colonoscopy 06/03/2024. The patient was found to have 1 medium polyp in the distal transverse colon removed with hot snare resected and retrieved. There was also a likely malignant appearing tumor in the distal transverse colon which was biopsied. Clip was placed. Examination was otherwise normal. Underwent laparoscopic transverse and left hemicolectomy with takedown of splenic flexure on 06/23/2024. Final pathology demonstrated the tumor in the splenic flexure measuring 4.0 x 3.5 x 2.0 cm. No macroscopic tumor perforation was noted. Adenocarcinoma. Grade 2 (moderately differentiated). Tumor invaded into the muscularis propria. All margins were uninvolved. No lymphovascular invasion identified. No perineural invasion identified. No tumor deposits noted. 10 of 10 lymph nodes were negative for metastatic carcinoma. PAST MEDICAL HISTORY Diagnosis Date Allergic rhinitis, cause unspecified Migraine without aura Urinary calculus, unspecified Renal stones PAST SURGICAL HISTORY Procedure Laterality Date SEPTOPLASTY/SUBMUCOUS RESECJ W/WO CARTILAGE GRF Septoplasty VASECTOMY UNI/BI SPX W/POSTOP SEMEN EXAMS 11/27/08 lisinopril (ZESTRIL, PRINIVIL) 10 mg tablet Take 10 mg by mouth once daily. metFORMIN (GLUCOPHAGE) 500 mg tablet Take 500 mg by mouth twice daily. VALERIAN ROOT ORAL Take by mouth. benzonatate (TESSALON PERLES) 100 mg capsule Take 1 capsule by mouth three times daily as needed for cough. omeprazole (PRILOSEC) 20 mg capsule Take 20 mg by mouth once daily. codeine phos/acetaminophen(TY LENOL-CODEINE #3 300 MG-30 MG TAB) Take one(1) tablet every four(4) to six(6) hours as needed for pain. (Patient not taking: No sig reported) multivitamins(DAILY VITAMIN TAB) Take one(1) tablet daily. (Patient not taking: Reported on 07/30/2022) COMPOUNDED PRESCRIPTION HOLY TEA, DRINK TWICE DAILY (Patient not taking: Reported on 07/30/2022) lorazepam(ATIVAN 1 MG TAB) Take two tabs 30min. prior to procedure (Patient not taking: No sig reported) ALLERGIES No Known Allergies Social History Tobacco Use Smoking status: Never Smokeless tobacco: Never Substance Use Topics Alcohol use: No Drug use: No Family history: Father had stage IIIC colon cancer ~age 69. No other family h/o cancer. REVIEW OF SYSTEMS: Constitutional: No episodes of fever and night sweats. Not significantly fatigued. Normal appetite. Neuro: No STYLES, vertigo, dizziness and imbalance. No symptoms of neuropathy. HEENT: No recent change in voice, vision or hearing. Resp: No cough, wheeze and hemoptysis. No shortness of breath at rest. No ROCHA. CVS: No exertional chest pain, PND, orthopnea and LE edema. GI: See above. : No dysuria or gross hematuria. No symptoms of bladder outlet obstruction. Endo: No hot flashes. No polyuria and polydipsia. No heat and cold intolerance. Musculoskeletal: No bone, back, joint and muscular pain. Derm: No current rash. No history of jaundice or diffuse pruritis. Heme: No unusual bleeding and unexplained bruising. Psych: Normal mood. PHYSICAL EXAM: Vitals: Blood pressure 115/75, pulse 90, temperature 36.9 ?C (98.5 ?F), temperature source Temporal, height 162.6 cm (5' 4), weight 70.5 kg (155 lb 8 oz), SpO2 99%. Well-appearing and in no acute distress. EYES: Sclerae are anicteric bilaterally. LYMPHATIC: There is no palpable adenopathy. RESPIRATORY: Inspiratory breath sounds are of normal intensity in all freitas. No rales, wheezes or rhonchi. CARDIOVASCULAR: Rhythm is regular. No murmur. ABDOMEN: The abdomen is nondistended. No splenomegaly or hepatomegaly. No tenderness. Extremities: No swelling or edema. SKIN: No jaundice. NEUROLOGIC: senior report developer II-XII are grossly intact. No focal motor weakness. DTRs are symmetric and normal. MUSCULOSKELETAL: No joint swelling or tenderness. No muscle wasting. IMAGING: CT A/P 06/04/2024: There was not intraluminal solid mass within the colon the level of splenic flexure measuring approximately 2.7 x 2.5 cm in axial dimension and 3.7 cm in superior to inferior dimension. No evidence of obstruction. It was characterized by moderate contrast-enhancement and a lobulated contour. No other large or small bowel masses noted. There were several small nonpathologic lymph nodes present within (more content not included)... Normal [facility] Discharge Instructionon 06-09 Discharge Instruction [facility] Medical Records Department [address] [place] [address] Instructions for Home/Discharge Instructions 06/28/24 1106 MR#: [id number] Acct: [id number] Name: ADDY BYRNES Rep #: [id number] : 1970 53 From: Joe Leonard MD PCP: VARSHA Henley Status:ADM IN Discharge Instructions Diet Discharge Diet: Light diet - advance as tolerated Activity Discharge Activity: Return to Normal Activity, May Drive, May Shower and - (Lifting is restricted to less than 20 pounds for 6 weeks) Dressing / Incision Call your doctor if your incision/area has: Continuous Slow Oozing, Sudden Increased Bleeding, Increased Pain/ Swelling, Increased Redness and Foul Smelling Discharge Call your doctor if you observe: Fever of 101 or Higher, Change in Color and Uncontrolled pain Change Dressing in: do not change dressing Cleanse incision/area with: Soap Water Follow Up Care Please Follow Up With: Lamont José MD When: In 1 to 2 weeks Test Results: Test results from this visit will be discussed in further detail at your follow-up appointment, if applicable. Discharge Plan Admission Admit Date/Time: 06/23/24 13:16 Primary Reason for Your Visit: Colon resection Attending Provider: Lamont José Primary Care Provider: Deidre Schrader NP Discharge Orders/Prescriptions Prescriptions: No Action propranolol 10 mg tablet 10 mg PO QHS Qty: 30 5RF Mounjaro 2.5 mg/0.5 mL pen injector 2.5 mg subcut TU acetaminophen [Tylenol] 325 mg capsule 650 mg PO Q4H PRN (Reason: pain) Referrals / Follow Up: Deidre Schrader NP, 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 [Primary Care Provider] - 06/28/24 1247 Joe Leonard MD CC: VARSHA Schrader Signed Normal [facility] Discharge Instruction [facility] Medical Records Department [address] [place] [address] Instructions for Home/Discharge Instructions 06/28/24 1102 MR#: [id number] Acct: [id number] Name: ADDY BYRNES Rep #: [id number] : 1970 53 From: Joe Leonard MD PCP: VASRHA Henley Status:DIS IN 07/01/24 1115 Joe Leonard MD CC: 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 Deidre Schrader Signed Normal [facility] Basic Metabolic Profile (BMP )on 06-27-2024 BUN/CRE 8.5 RATIO Low 07-27 [facility] Comment on above: Performed By: #### L 100.0100, L500.2500 #### [facility] [address] [place], [address] CA,Total 8.6 mg/dL Normal 8.5-10.1 [facility] Comment on above: Performed By: #### L 100.0100, L500.2500 #### [facility] [address] [place], [address] Chloride [Moles/Vol] 100 mmol/L Normal 98-107 [facility] Comment on above: Performed By: #### L 100.0100, L500.2500 #### [facility] [address] [place], [address] CO2 [Moles/Vol] 28.0 mmol/L Normal 21.0-32.0 [facility] Comment on above: Performed By: #### L 100.0100, L500.2500 #### [facility] [address] [place], [address] Creatinine [Mass/Vol] 0.59 mg/dL Low 0.70-1.30 [facility] Comment on above: Result Comment: The validity of the calculated GFR GFRAA in patients over 70 years has not been determined. Clinical correlation is essential. Performed By: #### L 100.0100, L500.2500 #### [facility] [address] [place], [address] ECRCL 131.89 ml/min Normal [facility] Comment on above: Performed By: #### L 100.0100, L500.2500 #### [facility] [address] [place], [address] EST GFR - AA 187 mL/min Normal >60 [facility] Comment on above: Result Comment: Afri can Macanese GFR Calc Performed By: #### L 100.0100, L500.2500 #### [facility] [address] [place], [address] GAP 8 Normal 5-15 [facility] Comment on above: Performed By: #### L 100.0100, L500.2500 #### [facility] [address] [place], [address] GFR/1.73 sq M.predicted among non-blacks MDRD (S/P/Bld) [Vol rate/Area] 154 mL/min/{1.73_m2} Normal >60 [facility] Comment on above: Result Comment: Non- GFR Calc Performed By: #### L 100.0100, L500.2500 #### [facility] [address] [place], [address] Glucose [Mass/Vol] 182 mg/dL High 74-106 [facility] Comment on above: Result Comment: Fast ing Glucose result greater than or equal to 126 mg/dL suggests DIABETES MELLITUS per A.D.A. criteria. Performed By: #### L 100.0100, L500.2500 #### [facility] [address] [place], [address] Potassium [Moles/Vol] 3.4 mmol/L Low 3.5-5.1 [facility] Comment on above: Performed By: #### L 100.0100, L500.2500 #### [facility] [address] [place], [address] Sodium [Moles/Vol] 136 mmol/L Normal 136-145 [facility] Comment on above: Performed By: #### L 100.0100, L500.2500 #### [facility] [address] [place], [address] Urea nitrogen [Mass/Vol] 5 mg/dL Low 7-18 [facility] Comment on above: Performed By: #### L 100.0100, L500.2500 #### [facility] [address] [place], [address] CBC W/Diff, Automatedon 09-2 0-4 Absolute Lymph 0.81 X10 3/uL Low 0.83-4.51 [facility] Comment on above: Performed By: #### L 100.0100, L500.2500 #### [facility] [address] [place], [address] Absolute Neut 4.4 X10 3/uL Normal 2.0-7.7 [facility] Comment on above: Performed By: #### L 100.0100, L500.2500 #### [facility] [address] [place], [address] Basophils/100 WBC (Bld) 0.3 % Normal 0-1 [facility] Comment on above: Performed By: #### L 100.0100, L500.2500 #### [facility] [address] [place], [address] Eosinophils/100 WBC (Bld) 2.2 % Normal 0-5 [facility] Comment on above: Performed By: #### L 100.0100, L500.2500 #### [facility] [address] [place], [address] Erythrocyte distribution width (RBC) [Ratio] 13.5 % Normal 11.6-14.6 [facility] Comment on above: Performed By: #### L 100.0100, L500.2500 #### [facility] [address] [place], [address] Hematocrit (Bld) [Volume fraction] 34.8 % Low 40-54 [facility] Comment on above: Performed By: #### L 100.0100, L500.2500 #### [facility] [address] [place], [address] Hemoglobin (Bld) [Mass/Vol] 11.3 g/dL Low 13.0-16.5 [facility] Comment on above: Performed By: #### L 100.0100, L500.2500 #### [facility] [address] [place], [address] IG% 0.500 Normal 0.0-0.9 [facility] Comment on above: Result Comment: IG% - Immature Granulocytes (promyelocytes, myelocytes and metamyelocytes) > 1% indicates that a LEFT SHIFT is Present. Performed By: #### L 100.0100, L500.2500 #### [facility] [address] [place], [address] Lymphocytes/100 WBC (Bld) 13.8 % Low 19-41 [facility] Comment on above: Performed By: #### L 100.0100, L500.2500 #### [facility] [address] [place], [address] MCH (RBC) [Entitic mass] 28.5 pg Normal 27.0-32.0 [facility] Comment on above: Performed By: #### L 100.0100, L500.2500 #### [facility] [address] [place], [address] MCHC (RBC) [Mass/Vol] 32.5 g/dL Normal 32-36 [facility] Comment on above: Performed By: #### L 100.0100, L500.2500 #### [facility] [address] [place], [address] MCV (RBC) [Entitic vol] 87.9 fL Normal 80-94 [facility] Comment on above: Performed By: #### L 100.0100, L500.2500 #### [facility] [address] [place], [address] Monocytes/100 WBC (Bld) 8.7 % Normal 0-10 [facility] Comment on above: Performed By: #### L 100.0100, L500.2500 #### [facility] [address] [place], [address] Neutrophils/100 WBC (Bld) 74.5 % High 47-70 [facility] Comment on above: Performed By: #### L 100.0100, L500.2500 #### [facility] [address] [place], [address] Nucleated RBC (Bld) [#/Vol] 0 10*3/uL Normal 0-5 [facility] Comment on above: Performed By: #### L 100.0100, L500.2500 #### [facility] [address] [place], [address] Platelet mean volume (Bld) [Entitic vol] 9.5 fL Normal 6.2-12.0 [facility] Comment on above: Performed By: #### L 100.0100, L500.2500 #### [facility] [address] [place], [address] Platelets (Bld) [#/Vol] 260 10*3/uL Normal 150-450 [facility] Comment on above: Performed By: #### L 100.0100, L500.2500 #### [facility] [address] [place], [address] RBC (Bld) [#/Vol] 3.96 10*6/uL Low 4.6-6.2 [facility] Comment on above: Performed By: #### L 100.0100, L500.2500 #### [facility] [address] [place], [address] RDW SD 43.2 fl Normal 35.1-43.9 [facility] Comment on above: Performed By: #### L 100.0100, L500.2500 #### [facility] [address] [place], [address] WBC (Bld) [#/Vol] 5.9 10*3/uL Normal 4.4-11.0 [facility] Comment on above: Performed By: #### L 100.0100, L500.2500 #### [facility] [address] [place], [address] Basic Metabolic Profile (BMP )on 06-26-2024 BUN/CRE 9.6 RATIO Low 10-20 [facility] Comment on above: Performed By: #### P MLH1. #### [facility] [address] [place], [address] CA,Total 8.7 mg/dL Normal 8.5-10.1 [facility] Comment on above: Performed By: #### P MLH1. #### [facility] [address] [place], [address] Chloride [Moles/Vol] 101 mmol/L Normal 98-107 [facility] Comment on above: Performed By: #### P MLH1. #### [facility] [address] [place], [address] CO2 [Moles/Vol] 26.0 mmol/L Normal 21.0-32.0 [facility] Comment on above: Performed By: #### P MLH1. #### [facility] [address] [place], [address] Creatinine [Mass/Vol] 0.52 mg/dL Low 0.70-1.30 [facility] Comment on above: Result Comment: The validity of the calculated GFR GFRAA in patients over 70 years has not been determined. Clinical correlation is essential. Performed By: #### P MLH1. #### [facility] [address] [place], [address] ECRCL 149.65 ml/min Normal [facility] Comment on above: Performed By: #### P MLH1. #### [facility] [address] [place], [address] EST GFR - AA 215 mL/min Normal >60 [facility] Comment on above: Result Comment: Afri can Macanese GFR Calc Performed By: #### P MLH1. #### [facility] [address] [place], [address] GAP 8 Normal 5-15 [facility] Comment on above: Performed By: #### P MLH1. #### [facility] [address] [place], [address] GFR/1.73 sq M.predicted among non-blacks MDRD (S/P/Bld) [Vol rate/Area] 178 mL/min/{1.73_m2} Normal >60 [facility] Comment on above: Result Comment: Non- GFR Calc Performed By: #### P MLH1. #### [facility] [address] [place], [address] Glucose [Mass/Vol] 179 mg/dL High 74-106 [facility] Comment on above: Result Comment: Fast ing Glucose result greater than or equal to 126 mg/dL suggests DIABETES MELLITUS per A.D.A. criteria. Performed By: #### P MLH1. #### [facility] [address] [place], [address] Potassium [Moles/Vol] 3.5 mmol/L Normal 3.5-5.1 [facility] Comment on above: Performed By: #### P MLH1. #### [facility] [address] [place], [address] Sodium [Moles/Vol] 135 mmol/L Low 136-145 [facility] Comment on above: Performed By: #### P MLH1. #### [facility] [address] [place], [address] Urea nitrogen [Mass/Vol] 5 mg/dL Low 7-18 [facility] Comment on above: Performed By: #### P MLH1. #### [facility] [address] [place], [address] CBC W/Diff, Automatedon 06-08 Absolute Lymph 0.71 X10 3/uL Low 0.83-4.51 [facility] Comment on above: Performed By: #### P MLH1. #### [facility] [address] [place], [address] Nucleated RBC (Bld) [#/Vol] 0 10*3/uL Normal 0-5 [facility] Comment on above: Performed By: #### P MLH1. #### [facility] [address] [place], [address] Absolute Neut 4.9 X10 3/uL Normal 2.0-7.7 [facility] Comment on above: Performed By: #### P MLH1. #### [facility] [address] [place], [address] Basophils/100 WBC (Bld) 0.3 % Normal 0-1 [facility] Comment on above: Performed By: #### P MLH1. #### [facility] [address] [place], [address] Eosinophils/100 WBC (Bld) 1.4 % Normal 0-5 [facility] Comment on above: Performed By: #### P MLH1. #### [facility] [address] [place], [address] Erythrocyte distribution width (RBC) [Ratio] 13.7 % Normal 11.6-14.6 [facility] Comment on above: Performed By: #### P MLH1. #### [facility] [address] [place], [address] Hematocrit (Bld) [Volume fraction] 33.5 % Low 40-54 [facility] Comment on above: Performed By: #### P MLH1. #### [facility] [address] [place], [address] Hemoglobin (Bld) [Mass/Vol] 11.2 g/dL Low 13.0-16.5 [facility] Comment on above: Performed By: #### P MLH1. #### [facility] [address] [place], [address] IG% 0.500 Normal 0.0-0.9 [facility] Comment on above: Result Comment: IG% - Immature Granulocytes (promyelocytes, myelocytes and metamyelocytes) > 1% indicates that a LEFT SHIFT is Present. Performed By: #### P MLH1. #### [facility] [address] [place], [address] Lymphocytes/100 WBC (Bld) 11.3 % Low 19-41 [facility] Comment on above: Performed By: #### P MLH1. #### [facility] [address] [place], [address] MCH (RBC) [Entitic mass] 29.5 pg Normal 27.0-32.0 [facility] Comment on above: Performed By: #### P MLH1. #### [facility] [address] [place], [address] MCHC (RBC) [Mass/Vol] 33.4 g/dL Normal 32-36 [facility] Comment on above: Performed By: #### P MLH1. #### [facility] [address] [place], [address] MCV (RBC) [Entitic vol] 88.2 fL Normal 80-94 [facility] Comment on above: Performed By: #### P MLH1. #### [facility] [address] [place], [address] Monocytes/100 WBC (Bld) 7.5 % Normal 0-10 [facility] Comment on above: Performed By: #### P MLH1. #### [facility] [address] [place], [address] Neutrophils/100 WBC (Bld) 79.0 % High 47-70 [facility] Comment on above: Performed By: #### P MLH1. #### [facility] [address] [place], [address] Platelet mean volume (Bld) [Entitic vol] 9.5 fL Normal 6.2-12.0 [facility] Comment on above: Performed By: #### P MLH1. #### [facility] [address] [place], [address] Platelets (Bld) [#/Vol] 200 10*3/uL Normal 150-450 [facility] Comment on above: Performed By: #### P MLH1. #### [facility] [address] [place], [address] RBC (Bld) [#/Vol] 3.80 10*6/uL Low 4.6-6.2 [facility] Comment on above: Performed By: #### P MLH1. #### [facility] [address] [place], [address] RDW SD 43.9 fl Normal 35.1-43.9 [facility] Comment on above: Performed By: #### P MLH1. #### [facility] [address] [place], [address] WBC (Bld) [#/Vol] 6.3 10*3/uL Normal 4.4-11.0 [facility] Comment on above: Performed By: #### P MLH1. #### [facility] [address] [place], [address] Basic Metabolic Profile (BMP )on 06-25-2024 BUN/CRE 16.5 RATIO Normal 10-20 [facility] Comment on above: Performed By: #### L 100.0100, L500.2500 #### [facility] [address] [place], [address] CA,Total 8.5 mg/dL Normal 8.5-10.1 [facility] Comment on above: Performed By: #### L 100.0100, L500.2500 #### [facility] [address] [place], [address] Chloride [Moles/Vol] 103 mmol/L Normal 98-107 [facility] Comment on above: Performed By: #### L 100.0100, L500.2500 #### [facility] [address] [place], [address] CO2 [Moles/Vol] 27.0 mmol/L Normal 21.0-32.0 [facility] Comment on above: Performed By: #### L 100.0100, L500.2500 #### [facility] [address] [place], [address] Creatinine [Mass/Vol] 0.60 mg/dL Low 0.70-1.30 [facility] Comment on above: Result Comment: The validity of the calculated GFR GFRAA in patients over 70 years has not been determined. Clinical correlation is essential. Performed By: #### L 100.0100, L500.2500 #### [facility] [address] [place], [address] ECRCL 129.69 ml/min Normal [facility] Comment on above: Performed By: #### L 100.0100, L500.2500 #### [facility] [address] [place], [address] EST GFR - AA 180 mL/min Normal >60 [facility] Comment on above: Result Comment: Afri can Macanese GFR Calc Performed By: #### L 100.0100, L500.2500 #### [facility] [address] [place], [address] GAP 5 Normal 5-15 [facility] Comment on above: Performed By: #### L 100.0100, L500.2500 #### [facility] [address] [place], [address] GFR/1.73 sq M.predicted among non-blacks MDRD (S/P/Bld) [Vol rate/Area] 149 mL/min/{1.73_m2} Normal >60 [facility] Comment on above: Result Comment: Non- GFR Calc Performed By: #### L 100.0100, L500.2500 #### [facility] [address] [place], [address] Glucose [Mass/Vol] 197 mg/dL High 74-106 [facility] Comment on above: Result Comment: Fast ing Glucose result greater than or equal to 126 mg/dL suggests DIABETES MELLITUS per A.D.A. criteria. Performed By: #### L 100.0100, L500.2500 #### [facility] [address] [place], [address] Potassium [Moles/Vol] 3.8 mmol/L Normal 3.5-5.1 [facility] Comment on above: Performed By: #### L 100.0100, L500.2500 #### [facility] [address] [place], [address] Sodium [Moles/Vol] 135 mmol/L Low 136-145 [facility] Comment on above: Performed By: #### L 100.0100, L500.2500 #### [facility] [address] [place], [address] Urea nitrogen [Mass/Vol] 10 mg/dL Normal 7-18 [facility] Comment on above: Performed By: #### L 100.0100, L500.2500 #### [facility] [address] [place], [address] CBC W/Diff, Automatedon 06-08 Absolute Lymph 0.81 X10 3/uL Low 0.83-4.51 [facility] Comment on above: Performed By: #### L 100.0100, L500.2500 #### [facility] [address] [place], [address] Absolute Neut 6.6 X10 3/uL Normal 2.0-7.7 [facility] Comment on above: Performed By: #### L 100.0100, L500.2500 #### [facility] [address] [place], [address] Basophils/100 WBC (Bld) 0.2 % Normal 0-1 [facility] Comment on above: Performed By: #### L 100.0100, L500.2500 #### [facility] [address] [place], [address] Eosinophils/100 WBC (Bld) 0.7 % Normal 0-5 [facility] Comment on above: Performed By: #### L 100.0100, L500.2500 #### [facility] [address] [place], [address] Erythrocyte distribution width (RBC) [Ratio] 14.0 % Normal 11.6-14.6 [facility] Comment on above: Performed By: #### L 100.0100, L500.2500 #### [facility] [address] [place], [address] Hematocrit (Bld) [Volume fraction] 34.3 % Low 40-54 [facility] Comment on above: Performed By: #### L 100.0100, L500.2500 #### [facility] [address] [place], [address] Hemoglobin (Bld) [Mass/Vol] 11.2 g/dL Low 13.0-16.5 [facility] Comment on above: Performed By: #### L 100.0100, L500.2500 #### [facility] [address] [place], [address] IG% 0.500 Normal 0.0-0.9 [facility] Comment on above: Result Comment: IG% - Immature Granulocytes (promyelocytes, myelocytes and metamyelocytes) > 1% indicates that a LEFT SHIFT is Present. Performed By: #### L 100.0100, L500.2500 #### [facility] [address] [place], [address] Lymphocytes/100 WBC (Bld) 9.8 % Low 19-41 [facility] Comment on above: Performed By: #### L 100.0100, L500.2500 #### [facility] [address] [place], [address] MCH (RBC) [Entitic mass] 28.9 pg Normal 27.0-32.0 [facility] Comment on above: Performed By: #### L 100.0100, L500.2500 #### [facility] [address] [place], [address] MCHC (RBC) [Mass/Vol] 32.7 g/dL Normal 32-36 [facility] Comment on above: Performed By: #### L 100.0100, L500.2500 #### [facility] [address] [place], [address] MCV (RBC) [Entitic vol] 88.6 fL Normal 80-94 [facility] Comment on above: Performed By: #### L 100.0100, L500.2500 #### [facility] [address] [place], [address] Monocytes/100 WBC (Bld) 8.0 % Normal 0-10 [facility] Comment on above: Performed By: #### L 100.0100, L500.2500 #### [facility] [address] [place], [address] Neutrophils/100 WBC (Bld) 80.8 % High 47-70 [facility] Comment on above: Performed By: #### L 100.0100, L500.2500 #### [facility] [address] [place], [address] Nucleated RBC (Bld) [#/Vol] 0 10*3/uL Normal 0-5 [facility] Comment on above: Performed By: #### L 100.0100, L500.2500 #### [facility] [address] [place], [address] Platelet mean volume (Bld) [Entitic vol] 9.7 fL Normal 6.2-12.0 [facility] Comment on above: Performed By: #### L 100.0100, L500.2500 #### [facility] [address] [place], [address] Platelets (Bld) [#/Vol] 192 10*3/uL Normal 150-450 [facility] Comment on above: Performed By: #### L 100.0100, L500.2500 #### [facility] [address] [place], [address] RBC (Bld) [#/Vol] 3.87 10*6/uL Low 4.6-6.2 [facility] Comment on above: Performed By: #### L 100.0100, L500.2500 #### [facility] [address] [place], [address] RDW SD 45.5 fl High 35.1-43.9 [facility] Comment on above: Performed By: #### L 100.0100, L500.2500 #### [facility] [address] [place], [address] WBC (Bld) [#/Vol] 8.2 10*3/uL Normal 4.4-11.0 [facility] Comment on above: Performed By: #### L 100.0100, L500.2500 #### [facility] [address] [place], [address] Basic Metabolic Profile (BMP )on 06-24-2024 BUN/CRE 14.3 RATIO Normal 10-20 [facility] Comment on above: Performed By: #### L 500.2500, L100.0500 #### [facility] [address] [place], [address] CA,Total 8.5 mg/dL Normal 8.5-10.1 [facility] Comment on above: Performed By: #### L 500.2500, L100.0500 #### [facility] [address] [place], [address] Chloride [Moles/Vol] 104 mmol/L Normal 98-107 [facility] Comment on above: Performed By: #### L 500.2500, L100.0500 #### [facility] [address] [place], [address] CO2 [Moles/Vol] 25.0 mmol/L Normal 21.0-32.0 [facility] Comment on above: Performed By: #### L 500.2500, L100.0500 #### [facility] [address] [place], [address] Creatinine [Mass/Vol] 0.84 mg/dL Normal 0.70-1.30 [facility] Comment on above: Result Comment: The validity of the calculated GFR GFRAA in patients over 70 years has not been determined. Clinical correlation is essential. Performed By: #### L 500.2500, L100.0500 #### [facility] [address] [place], [address] ECRCL 92.64 ml/min Normal [facility] Comment on above: Performed By: #### L 500.2500, L100.0500 #### [facility] [address] [place], [address] EST GFR - AA 124 mL/min Normal >60 [facility] Comment on above: Result Comment: Afri can Macanese GFR Calc Performed By: #### L 500.2500, L100.0500 #### [facility] [address] [place], [address] GAP 8 Normal 5-15 [facility] Comment on above: Performed By: #### L 500.2500, L100.0500 #### [facility] [address] [place], [address] GFR/1.73 sq M.predicted among non-blacks MDRD (S/P/Bld) [Vol rate/Area] 102 mL/min/{1.73_m2} Normal >60 [facility] Comment on above: Result Comment: Non- GFR Calc Performed By: #### L 500.2500, L100.0500 #### [facility] [address] [place], [address] Glucose [Mass/Vol] 207 mg/dL High 74-106 [facility] Comment on above: Result Comment: Gluc ose result greater than or equal to 200 mg/dL suggests DIABETES MELLITUS per A.D.A. criteria. Performed By: #### L 500.2500, L100.0500 #### [facility] [address] [place], [address] Potassium [Moles/Vol] 3.9 mmol/L Normal 3.5-5.1 [facility] Comment on above: Performed By: #### L 500.2500, L100.0500 #### [facility] [address] [place], [address] Sodium [Moles/Vol] 137 mmol/L Normal 136-145 [facility] Comment on above: Performed By: #### L 500.2500, L100.0500 #### [facility] [address] [place], [address] Urea nitrogen [Mass/Vol] 12 mg/dL Normal 7-18 [facility] Comment on above: Performed By: #### L 500.2500, L100.0500 #### [facility] [address] [place], [address] CBC-Complete Blood Cnt No Di ffon 06-24-2024 Erythrocyte distribution width (RBC) [Ratio] 13.7 % Normal 11.6-14.6 [facility] Comment on above: Performed By: #### L 500.2500, L100.0500 #### [facility] [address] [place], [address] Hematocrit (Bld) [Volume fraction] 38.0 % Low 40-54 [facility] Comment on above: Performed By: #### L 500.2500, L100.0500 #### [facility] [address] [place], [address] Hemoglobin (Bld) [Mass/Vol] 12.7 g/dL Low 13.0-16.5 [facility] Comment on above: Performed By: #### L 500.2500, L100.0500 #### [facility] [address] [place], [address] MCH (RBC) [Entitic mass] 29.5 pg Normal 27.0-32.0 [facility] Comment on above: Performed By: #### L 500.2500, L100.0500 #### [facility] [address] [place], [address] MCHC (RBC) [Mass/Vol] 33.4 g/dL Normal 32-36 [facility] Comment on above: Performed By: #### L 500.2500, L100.0500 #### [facility] [address] [place], [address] MCV (RBC) [Entitic vol] 88.4 fL Normal 80-94 [facility] Comment on above: Performed By: #### L 500.2500, L100.0500 #### [facility] [address] [place], [address] Platelet mean volume (Bld) [Entitic vol] 9.5 fL Normal 6.2-12.0 [facility] Comment on above: Performed By: #### L 500.2500, L100.0500 #### [facility] [address] [place], [address] Platelets (Bld) [#/Vol] 252 10*3/uL Normal 150-450 [facility] Comment on above: Performed By: #### L 500.2500, L100.0500 #### [facility] [address] [place], [address] RBC (Bld) [#/Vol] 4.30 10*6/uL Low 4.6-6.2 [facility] Comment on above: Performed By: #### L 500.2500, L100.0500 #### [facility] [address] [place], [address] RDW SD 44.2 fl High 35.1-43.9 [facility] Comment on above: Performed By: #### L 500.2500, L100.0500 #### [facility] [address] [place], [address] WBC (Bld) [#/Vol] 9.3 10*3/uL Normal 4.4-11.0 [facility] Comment on above: Performed By: #### L 500.2500, L100.0500 #### [facility] [address] [place], [address] Basic Metabolic Profile (BMP )on 06-23-2024 BUN/CRE 7.8 RATIO Low 10-20 [facility] Comment on above: Performed By: #### P MLH1. #### [facility] [address] [place], [address] CA,Total 9.0 mg/dL Normal 8.5-10.1 [facility] Comment on above: Performed By: #### P MLH1. #### [facility] [address] [place], [address] Chloride [Moles/Vol] 100 mmol/L Normal 98-107 [facility] Comment on above: Performed By: #### P MLH1. #### [facility] [address] [place], [address] CO2 [Moles/Vol] 26.0 mmol/L Normal 21.0-32.0 [facility] Comment on above: Performed By: #### P MLH1. #### [facility] [address] [place], [address] Creatinine [Mass/Vol] 0.90 mg/dL Normal 0.70-1.30 [facility] Comment on above: Result Comment: The validity of the calculated GFR GFRAA in patients over 70 years has not been determined. Clinical correlation is essential. Performed By: #### P MLH1. #### [facility] [address] [place], [address] ECRCL 86.46 ml/min Normal [facility] Comment on above: Performed By: #### P MLH1. #### [facility] [address] [place], [address] EST GFR - AA 114 mL/min Normal >60 [facility] Comment on above: Result Comment: Afri can Macanese GFR Calc Performed By: #### P MLH1. #### [facility] [address] [place], [address] GAP 9 Normal 5-15 [facility] Comment on above: Performed By: #### P MLH1. #### [facility] [address] [place], [address] GFR/1.73 sq M.predicted among non-blacks MDRD (S/P/Bld) [Vol rate/Area] 94 mL/min/{1.73_m2} Normal >60 [facility] Comment on above: Result Comment: Non- GFR Calc Performed By: #### P MLH1. #### [facility] [address] [place], [address] Glucose [Mass/Vol] 299 mg/dL High 74-106 [facility] Comment on above: Result Comment: Gluc ose result greater than or equal to 200 mg/dL suggests DIABETES MELLITUS per A.D.A. criteria. Performed By: #### P MLH1. #### [facility] [address] [place], [address] Potassium [Moles/Vol] 3.7 mmol/L Normal 3.5-5.1 [facility] Comment on above: Performed By: #### P MLH1. #### [facility] [address] [place], [address] Sodium [Moles/Vol] 135 mmol/L Low 136-145 [facility] Comment on above: Performed By: #### P MLH1. #### [facility] [address] [place], [address] Urea nitrogen [Mass/Vol] 7 mg/dL Normal 7-18 [facility] Comment on above: Performed By: #### P MLH1. #### [facility] [address] [place], [address] Bedside Glucoseon 06-23-2024 FINGERSTICK GLU 281 mg/dL High 74-106 [facility] Comment on above: Result Comment: EDI GEMENT OF PATIENT CARE PER NURSING PROTOCOL Performed By: #### L 501.080 #### [facility] [address] [place], [address] FINGERSTICK GLU 289 mg/dL High 74-106 [facility] Comment on above: Result Comment: EDI GEMENT OF PATIENT CARE PER NURSING PROTOCOL Performed By: #### P MLH1. #### [facility] [address] [place], [address] MLH-1 (add)on 06-23-2024 MLH-1 (add) - -------- Patient Age/Sex Location Account Attending Physician -------- ADDY BYRNES 53/M MS3 [id number] Dr. Lamont José MD -------- Specimen: [id number] Received: 06/30/24 Status: MIGUEL A Woodsjose carlos Num: [id number] Spec Type: IMMUNO Subm Dr: Dr. Lamont José MD PHYSICIAN INSTITUTION [place] [address] SPECIMEN INFORMATION: Tissue Source: Splenic flexure Clinical Info: Colonic mass Specimen Number: [id number] CPT code: 20167,52871z7 METHODOLOGY: Deparaffinized sections of prefer/formalin-fixed tissue or PAP/DQ stained slides are incubated with monoclonal/polyclonal antibodies/oligonucle otide probes. Localization is made via biotin free immunoperoxidase method. Appropriate controls are performed and reacted as expected. Results on target cell population are indicated in the following table: RESULTS: ANTIBODY / CLONE RESULT Block #5 Her-2neu (CB11) negative MOC-31 (4561) positive MLH-1 (M1) positive MSH2 (25D12) positive MSH6 (44) positive PMS2 (LZO8303) positive Ki-67 (30-9) positive, >90% P53 (DO-7) negative, null pattern These tests were developed and their performance characteristics determined by [facility]. They may not have been cleared or approved by the U.[place]. Food and Drug Administration. The FDA has determined that such clearance or approval is not necessary. The above immunohistochemical/d ualISH markers are ordered and reviewed by the Pathologist. INTERPRETATION: Splenic flexure, resection: Invasive adenocarcinoma. Result of Microsatellite Instability Study: Negative (no loss of mismatch protein; no microsatellite instability detected). AM.mr 07/01/2024 Signed (signature on file) Dr. Bill Barrientos, DO 07/01/24 1315 -------- Normal [facility] Comment on above: Performed By: #### P MLH1. #### [facility] [address] [facility] [place], [place], [address] MR/POSTOP.JEFF 06-23-2024 MR/POSTOP.[facility] Medical Records Department [address] [place] [address] Anesthesia Postop Eval I 06/23/24 1312 MR#: [id number] Acct: [id number] Name: FITZADDY Yara Rep #: [id number] : 1970 53 From: Yahaira Chapman CRNA PCP: Deidre Schrader ASPHALT 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 Status:ADM IN Y Race: C Location: [place] [address] Anesthesia: Postop Eval I Current Vital Signs Temperature: 97.1 F Pulse Rate: 90 Blood Pressure: 133/73 Respiratory Rate: 16 Pulse Ox: 96 Oxygen Delivery Method: Room Air Assessment Airway patent: Yes Spontaneous unlabored respirations: Yes Mental status: Awake and Calm nausea: No Vomiting: No Anesthesia Complication: No Fluid Hydration Crystalloid volume administer (ml): 2,200 Total IV fluid infused: 2,200 Progress Note Anesthesia document: Postop Eval 1 completed: Yes 06/23/24 1313 Date Yahaira Dowtaranmichelle REGULATORY ANALYST Walterigner Signature: Date CC: Signed Normal [facility] MR/SHRFTNNW0ad 06-23-2024 MR/POSTOPAN2 [facility] Medical Records Department [address] [place] [address] Anesthesia Postop Eval II 06/23/24 1624 MR#: [id number] Acct: [id number] Name: ADDY BYRNES Yara Rep #: [id number] : 1970 53 From: Isac Cao MD PCP: VARSHA Henley Status:ADM IN Y Race: C Location: [place] [address] Anesthesia Postop Eval I Sum Postop Eval Completion status Anesthesia document: Postop Eval 1 completed: Yes Anesthesia Postop Eval I Summary Anesthesia Postop Eval I Summary: Anesthesia Postop Eval I: Assessment Summary Airway patent Yes 06/23/24 13:13 REGULATORY ANALYST.DIOOBStephany Spontaneous unlabored Yes 06/23/24 13:13 REGULATORY ANALYST.MALENA respirations Mental status Awake,Calm 06/23/24 13:13 REGULATORY ANALYST.DIOOBStephany nausea No 06/23/24 13:13 REGULATORY ANALYST.DIOOBY Vomiting No 06/23/24 13:13 REGULATORY ANALYST.DIOOBStephany Anesthesia Postop Eval I: Fluid Summary Crystalloid volume administer 2,200 06/23/24 13:13 REGULATORY ANALYST.DIOOBY (ml) Colloids volume administered ( ml) Blood Product volume administered (ml) Total IV fluid infused 2,200 06/23/24 13:13 REGULATORY ANALYST.DIOOBStephany Anesthesia Postop Eval I: Summary Notes Anesthesia Complication No 06/23/24 13:13 REGULATORY ANALYST.DIOOBStephany Anesthesia Complication Comment: Post-operative progress note Anesthesia: Postop Eval II Evaluation Mental status: Awake and Calm Pain Level: 2 nausea: No Vomiting: No Complications Anesthesia Complication: No 06/23/24 1625 Date Isac Hargrove Signature: Date CC: Signed Normal [facility] Magnesiumon 06-23-2024 Magnesium [Mass/Vol] 2.2 mg/dL Normal 1.6-2.6 [facility] Comment on above: Performed By: #### P MLH1. #### [facility] [address] [facility] [place], [address] Operative Reporton 4 Operative Report [facility] Medical Records Department [address] [place] [address] Operative Report 06/23/24 1311 MR#: [id number] Acct: [id number] Name: AMADORBARRYADDY Rep #: [id number] : 1970 53 From: Lamont José MD PCP: Deidre Schrader NP-C Status:ADM IN Location: [place] [address] Report of Operation Date of Procedure: 06/23/24 Pre-Operative Diagnosis: Splenic flexure colon mass Post-Operative Diagnosis: Same Surgery/Procedure Performed:: 1. Laparoscopic transverse and left hemicolectomy with takedown of splenic flexure Type of Anesthesia: General/Regional Specimen's removed: Splenic flexure of the colon Estimated Blood Loss (mL): 200 Description of Procedure: Patient was brought back to the operating room and general anesthesia was induced. The abdomen was prepped and draped in usual sterile fashion. A midline incision was made superior to umbilicus and deepened to the fascia which was elevated and incised. 12 mm port was placed into the abdomen and it was insufflated 15 mmHg. Under direct visualization a left lateral 5 mm port was placed as well as a right upper quadrant 5 mm port. Patient was placed in reverse Trendelenburg and the splenic flexure was located. The mass was located as well. Using Enseal the splenic flexure was taken down starting from the descending colon and going around to the transverse colon. Next after with mobilization of the splenic flexure an upper midline incision was lengthened and a wound protector was placed. The splenic flexure was brought through the wound protector. An area of transverse colon was selected between the 2 middle colic vessels and this was taken and divided using CAITY stapler. The left middle colic was taken. Dissection was carried to the upper left colic which was taken as well. There was good hemostasis on both ends. Next a CAITY stapler was used to staple the transverse colon to the descending colon and a [id number] functional end to end anastomosis was performed. Crotch suture was placed with 3-0 silk. There was some bleeding which was controlled with interrupted 3 oh silks along the staple line and some of the blood vessels. The abdomen was irrigated and suctioned dry and inspected and there was good hemostasis. The wound protector was removed and all staff changed gown and gloves. Next the fascia was closed with a running #1 PDS suture starting at the top and bottom meeting in the middle, subcutaneous tissue was irrigated and suctioned. Local anesthetic was injected into the incisions and they were closed with interrupted 4 Monocryl sutures. Steri-Strips and bandages were applied. Patient was awoken and taken to PACU in stable condition. Synoptic Portion: Element Response Options Operation performed with curative intent. Yes Tumor location splenic flexure Extent of colon and vascular resection [Right hemicolectomy ??? Splenic flexure resection ??? middle and ascending left colic Admit VTE Documentation VTE Mechan Device Prophylaxis: SCD's 06/23/24 1316 Cosigner Signature (if applicable): CC: VARSHA Schrader; Dr. Lamont José MD Signed Normal [facility] Surgery Specimen Level VIon 06-23-2024 Surgery Specimen Level -------- Patient Age/Sex Location Account Attending Physician -------- ADDY BYRNES 53/M MS3 [id number] Dr. Lamont José MD -------- Specimen: [id number] Received: 06/23/24 Status: MIGUEL A Woodsjose carlos Num: [id number] Spec Type: COLON Subm Dr: Dr. Lamont José MD HEADER OPERATION: Laparoscopic splenic flexure resection PRE-OP DIAGNOSIS: Colonic mass TISSUE SUBMITTED: Splenic flexure- suture silver proximal margin -------- MICROSCOPIC DIAGNOSIS Splenic flexure, segmental resection: Invasive moderately differentiated adenocarcinoma. See cancer template below. AM.mr 06/26/2024 COMMENT COLON/RECTAL CANCER CASE SUMMARY Procedure: Segmental colectomy Tumor Site: Splenic flexure Tumor Size: 4.0 x 3.5 x 2.0cm Macroscopic Tumor Perforation: Not identified Histologic Type: Colon adenocarcinoma Histologic Grade: G2 (moderately differentiated) Tumor Extension: Tumor invades into the muscularis propria Margins: All margins are uninvolved by invasive carcinoma Treatment Effect: Unknown Lympho vascular Invasion: Not identified Perineural Invasion: Not identified Tumor Deposits: Not identified Regional Lymph Nodes: 10 out of 10 lymph nodes, negative for metastatic carcinoma Ancillary Studies: [id number] (immunohistochemistry ) No MSI detected (No loss of mismatch repair proteins). Additional Pathologic Findings: Mild chronic inflammation Pathologic Stage: T2 N0 Mx Immunohistochemistry ([id number]) supports the above diagnosis. Case has been reviewed in consultation with Dr. Hernandez who concurs with the above diagnosis. IDC:[email or web address] MICROSCOPIC DESCRIPTION Slides are reviewed. -------- Patient Age/Sex Location Account Attending Physician -------- ADDY BYRNES 53/M MS3 [id number] Dr. Lamont José MD -------- GROSS DESCRIPTION Received in fixative is one container labeled with the patient's name and designated Splenic flexure biopsy. The specimen consists of a segment of colon with attached pericolonic adipose tissue and omentum measuring 14.0cm in length. Both resection margins are stapled. Focal area of serosal surface shows puckering. This area is inked black 6.0cm away from the proximal resection margin and an almost obstructing cauliflower like mass is noted measuring 3.5 x 4.0 x 2.0cm. No additional mass lesions are identified. Attached omentum measures 15.0 x 13.0 x 2.0cm. Pericolonic adipose tissue is fixed in lymph node revealing solution. More dictation will follow after fixation. . 06/24/2024 Section of the bowel wall reveals a few diverticula and obviously ruptured diverticula are noted. No additional mucosa lesion is identified. Section of the tumor reveal no extension through bowel wall. Section of the omentum do not reveal any mass lesions. Sections of pericolonic adipose tissue reveal multiple lymph nodes, largest lymph node measures 0.5cm in greatest dimension. Pan Greaser sections are submitted as follows: 1- proximal resection margin, 2- distal resection margin, 3 4- diverticula, 5-8- tumor, 9- omentum, 10- 12-lymph node (cassette 10- one bisected lymph node, 11 12- multiple lymph nodes). . 06/25/2024 Pericolonic adipose tissue dissected again for a second look for lymph nodes. More sections are submitted as follows: 13-16- rest of the tumor, 17 18- pericolonic adipose tissue with possible lymph node. . 06/26/2024 TC:0 CPT:38071 -------- Patient Age/Sex Location Account Attending Physician -------- ADDY BYRNES 53/M MS3 [id number] Dr. Lamont José MD -------- Signed (signature on file) Dr. Bill Barrientos, 07/01/24 [address]26 -------- [address] [facility] Comment on above: Performed By: #### P MLH1. #### [facility] [address] [place], [address] Type AND Screenon 06-23-2024 Ab SCREEN GEL Negative Normal [facility] Comment on above: Order Comment: S Performed By: #### P MLH1. #### [facility] [address] [place], [address] ABO and Rh group Nom (Bld) Blood group O Rh(D) positive Normal [facility] Comment on above: Order Comment: S Performed By: #### P MLH1. #### [facility] [address] [facility] [place], [address] EMERGENCY REPORTon 7 EMERGENCY REPORT [facility] EMERGENCY ROOM REPORT NAME NUMBER SEX AGE ADMIT DISC TYPE MED.RECORD# ADDY BYRNES [id number] M 46 05/26/2017 05/26/2017 Juvenal [id number] ROOM:ER DATE OF :1970 PHYSICIAN NO.:[id number] PHYSICIAN NAME:RAJEEV ADAMS MD PHYSICIAN:KAMERON THOMPSON HISTORY OF PRESENT ILLNESS: Patient came in; he cut his right index finger. He got his finger caught in a rabbit cage and he pulled it out. He avulsed the skin on his right index finger on the ulnar side. He had minimal pain. He denied fevers, chills, nausea, or vomiting. His tetanus was not up to date, it was updated and he presents to the emergency department. PAST MEDICAL HISTORY: He takes omeprazole for presumed GERD. He has had deviated septum surgery. SOCIAL HISTORY: He does not smoke or drink. REVIEW OF SYSTEMS: Six systems reviewed and negative, except as mentioned above. PHYSICAL EXAMINATION: Patient is afebrile. Blood pressure 152/93, pulse 89. Respirations 13. Pulse ox 99% on room air. Head is normocephalic, atraumatic. Eyes: Pupils equal, round, active to light. Extraocular muscles intact. Nares are patent. Throat has adequate moisture. Uvula is midline. Neck is supple without petechiae or rash. Heart without murmur, S1 equals S2. No S3 or S4 appreciated. Lungs are clear to auscultation bilaterally. No rales, rhonchi, or retractions. Abdomen: Soft, nontender, nondistended. Skin is warm and dry. He has an avulsion of the skin on the right index finger. He is neurovascularly intact. DIAGNOSIS: Laceration and avulsion of right index finger. Tetanus updated. D: KAMERON THOMPSON TD: 05/27/2017 08:24:18 JOB #: [id number] MARLENA Thompson D.O. Emergency Department 06/01/17 12:15 Transcribed by: ANGELO 05/27/2017 08:24:18 Copy for: THAIS Wolfe III Copy for: ANGIE BOO MD via fax EMERGENCY ROOM REPORT ADDY BYRNES 1 Normal [facility] Vital Signs Date Time Vital Sign Value Performing Clinician Facility 04-17-2025 13:[id number] Body height 158.5 cm Marcelino Morales MD Work Phone: [facility] 04-17-2025 13:02-0400 Body mass index (BMI) [Ratio] 28.5 kg/m2 Marcelino Morales MD Work Phone: [facility] 04-17-2025 13:02-0400 Body weight 71.6 kg Marcelino Morales MD Work Phone: [facility] 04-09-2025 08:41-0400 Body height 160.02 cm Deidre Schrader ASPHALT 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 Work Phone: [facility] 04-09-2025 08:41-0400 Body mass index (BMI) [Ratio] 28 kg/m2 Deidre Schrader ASPHALT 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 Work Phone: [facility] 04-09-2025 08:41-0400 Body weight 71.83 kg Deidre Schrader ASPHALT 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 Work Phone: [facility] 04-09-2025 08:41-0400 Diastolic blood pressure 74 mm[Hg] Deidre Schrader ASPHALT 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 Work Phone: [facility] 04-09-2025 08:41-0400 Heart rate 77 /min Deidre Schrader ASPHALT 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 Work Phone: [facility] 04-09-2025 08:41-0400 SaO2% (BldA) [Mass fraction] 95 % Deidre Schrader ASPHALT 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 Work Phone: [facility] 04-09-2025 08:41-0400 Systolic blood pressure 111 mm[Hg] Deidre Schrader ASPHALT 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 Work Phone: [facility] 04-01-2025 09:55-0400 Body mass index (BMI) [Ratio] 26.95 kg/m2 Sindhu Yojana REEL MAN.KAIAKO KURA KAUPAPA MAORI Work Phone: [facility] 04-01-2025 09:55-0400 Body weight 71.22 kg Sindhu Yojana REEL MAN.KAIAKO KURA KAUPAPA MAORI Work Phone: [facility] 04-01-2025 09:55-0400 Diastolic blood pressure 74 mm[Hg] Sindhu Yojana REEL MAN.KAIAKO KURA KAUPAPA MAORI Work Phone: [facility] 04-01-2025 09:55-0400 Heart rate 86 /min Sindhu Yojana REEL MAN.KAIAKO KURA KAUPAPA MAORI Work Phone: [facility] 04-01-2025 09:55-0400 Respiratory rate 16 /min Sindhu Yojana REEL MAN.KAIAKO KURA KAUPAPA MAORI Work Phone: [facility] 04-01-2025 09:55-0400 SaO2% (BldA) [Mass fraction] 96 % Sindhu Yojana REEL MAN.KAIAKO KURA KAUPAPA MAORI Work Phone: [facility] 04-01-2025 09:55-0400 Systolic blood pressure 117 mm[Hg] Sindhu Yojana REEL MAN.KAIAKO KURA KAUPAPA MAORI Work Phone: [facility] 03-03-2025 08:27-0400 Body mass index (BMI) [Ratio] 27.36 kg/m2 Davey Cullen APRN.KAIAKO KURA KAUPAPA MAORI Work Phone: [facility] 03-03-2025 08:27-0400 Body temperature 97.81 [degF] Davey Cullen APRN.KAIAKO KURA KAUPAPA MAORI Work Phone: [facility] 03-03-2025 08:27-0400 Body weight 72.3 kg Davey Cullen APRN.KAIAKO KURA KAUPAPA MAORI Work Phone: [facility] 03-03-2025 08:27-0400 Diastolic blood pressure 82 mm[Hg] Davey Cullen APRN.KAIAKO KURA KAUPAPA MAORI Work Phone: [facility] 03-03-2025 08:27-0400 Heart rate 95 /min Davey Cullen APRN.KAIAKO KURA KAUPAPA MAORI Work Phone: [facility] 03-03-2025 08:27-0400 Respiratory rate 16 /min Davey Cullen APRN.KAIAKO KURA KAUPAPA MAORI Work Phone: [facility] 03-03-2025 08:27-0400 SaO2% (BldA) [Mass fraction] 98 % Davey Cullen APRN.KAIAKO KURA KAUPAPA MAORI Work Phone: [facility] 03-03-2025 08:27-0400 Systolic blood pressure 122 mm[Hg] Davey Cullen APRN.KAIAKO KURA KAUPAPA MAORI Work Phone: [facility] 07-04-2024 09:11-0400 Body height 162.6 cm Guzman Henaoi DO Work Phone: [facility] 07-04-2024 09:11-0400 Body mass index (BMI) [Ratio] 26.69 kg/m2 Guzman Masci DO Work Phone: [facility] 07-04-2024 09:11-0400 Body temperature 98.49 [degF] Guzman Henaoi DO Work Phone: [facility] 07-04-2024 09:11-0400 Body weight 70.53 kg Guzman Henaoi DO Work Phone: [facility] 07-04-2024 09:11-0400 Diastolic blood pressure 75 mm[Hg] Guzman Julianoi DO Work Phone: [facility] 07-04-2024 09:11-0400 Heart rate 90 /min Guzman Henaoi DO Work Phone: [facility] 07-04-2024 09:11-0400 SaO2% (BldA) [Mass fraction] 99 % Guzman Henaoi DO Work Phone: [facility] 07-04-2024 09:11-0400 Systolic blood pressure 115 mm[Hg] Guzman Henaoi DO Work Phone: [facility] 07-30-2022 15:04-0400 Body temperature 98.1 [degF] Sadiq Villalobos REEL MAN.KAIAKO KURA KAUPAPA MAORI Work Phone: [facility] 07-30-2022 15:04-0400 Body weight 80.02 kg Sadiq Villalobos REEL MAN.KAIAKO KURA KAUPAPA MAORI Work Phone: [facility] 07-30-2022 15:04-0400 Diastolic blood pressure 94 mm[Hg] Sadiq Villalobos REEL MAN.KAIAKO KURA KAUPAPA MAORI Work Phone: [facility] 07-30-2022 15:04-0400 Heart rate 102 /min Sadiq Villalobos REEL MAN.KAIAKO KURA KAUPAPA MAORI Work Phone: [facility] 07-30-2022 15:04-0400 Respiratory rate 18 /min Sadiq Villalobos REEL MAN.KAIAKO KURA KAUPAPA MAORI Work Phone: [facility] 07-30-2022 15:04-0400 SaO2% (BldA) [Mass fraction] 97 % Sadiq Darlingfred REEL MAN.KAIAKO KURA KAUPAPA MAORI Work Phone: [facility] 07-30-2022 15:04-0400 Systolic blood pressure 136 mm[Hg] Sadiq Allenemilie REEL MAN.KAIAKO KURA KAUPAPA MAORI Work Phone: [facility] Encounters Encounter Date Encounter Type Care Provider Facility Start: 06-23-2025 ambulatory Lamont Martinez lity:[facility] Start: 06-18-2025 End: 06-18-2025 [facility] Main Work Phone: Neurology Comment on above: CMN Start: 04-22-2025 End: 04-28-2025 Telephone encounter Kameron Rios MD Work Phone: Neurology Comment on above: Patient Question Start: 04-17-2025 End: 04-17-2025 Patient encounter procedure Marcelino Morales MD Work Phone: Otolaryngology Comment on above: DALE (obstructive sle ep apnea); Intolerance of continuous positive airway pressure (CPAP) ventilation Start: 04-17-2025 End: 04-17-2025 ambulatory SINDHU DIAL Facility:[facility] Start: 04-09-2025 End: 04-09-2025 Patient encounter procedure Ben Rodriguez NP-C -[facility] Work Phone: Start: 04-09-2025 End: 04-09-2025 ambulatory Deidre Schrader ASPHALT 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 Work Phone: -[facility] Start: 04-08-2025 End: 04-08-2025 ambulatory Deidre Schrader ASPHALT 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 Work Phone: -Laboratory Start: 04-08-2025 End: 04-08-2025 Patient encounter procedure Ben Rodriguez ASPHALT 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 -Laboratory Work Phone: Start: 04-08-2025 End: 04-08-2025 ambulatory Ben Rodriguez Facility:[facility] Start: 04-01-2025 End: 04-01-2025 Patient encounter procedure Sindhu Dial REEL MAN.KAIAKO KURA KAUPAPA MAORI Work Phone: Neurology Comment on above: DALE (obstructive sle ep apnea) (Primary Dx); Intolerance of continuous positive airway pressure (CPAP) ventilation Start: 04-01-2025 End: 04-01-2025 ambulatory SINDHU DIAL Facility:[facility] Start: 03-04-2025 End: 05-04-2025 Follow-up encounter Kameron Rios MD Work Phone: Neurology Comment on above: Appointment Start: 03-03-2025 End: 03-03-2025 Patient encounter procedure Davey Cullen APRN.KAIAKO KURA KAUPAPA MAORI Work Phone: [facility] Comment on above: Sore throat (Primary Dx); URI, acute Start: 03-03-2025 End: 03-03-2025 ambulatory DAVEY CULLEN Facility:[facility] Start: 02-17-2025 End: 02-18-2025 ambulatory BEN RODRIGUEZ Facility:[facility] Start: 02-06-2025 End: 02-06-2025 Telephone encounter Guzman Vasquez DO Work Phone: Hematology/Oncology Comment on above: Results Start: 02-04-2025 ambulatory GUZMAN VASQUEZ Facility:[facility] Start: 02-04-2025 End: 02-04-2025 Subsequent hospital visit by physician Geovanna [facility] (I-Stat) Work Phone: Cat Scan Comment on above: Lung nodules [R91.8] Start: 01-22-2025 End: 01-22-2025 Telemedicine consultation with patient Kameron Rios Jr., MD Work Phone: Sleep Start: 01-22-2025 End: 01-22-2025 ambulatory Kameron Rios MD Work Phone: Sleep Comment on above: Intractable chronic migraine without aura and without status migrainosus (Primary Dx); Spinal stenosis of cervical region; Cervicalgia; DISH (diffuse idiopathic skeletal hyperostosis); Occipital neuralgia of left side; DALE (obstructive sleep apnea) Start: 11-28-2024 End: 11-28-2024 Telephone encounter Guzman Vasquez DO Work Phone: Hematology/Oncology Comment on above: Patient Question Start: 11-27-2024 End: 11-27-2024 ambulatory Deidre Schrader NP Facility:[facility] Start: 11-09-2024 End: 11-10-2024 Telephone encounter Guzman Vasquez DO Work Phone: Hematology/Oncology Comment on above: Results Start: 11-05-2024 End: 11-05-2024 ambulatory GUZMAN Andie PEDRO Facility:[facility] Start: 11-05-2024 End: 11-05-2024 Subsequent hospital visit by physician Ct [facility] (I-Stat) Work Phone: Cat Scan Comment on above: 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] Start: 08-01-2024 End: 08-05-2024 Telephone encounter Guzman Andie Pedro DO Work Phone: Hematology/Oncology Comment on above: Results Start: 07-30-2024 End: 07-30-2024 ambulatory Lamont José Facility:[facility] Start: 07-21-2024 Encounter for other preprocedural examination Lamontsondra José [facility] Start: 07-18-2024 End: 07-18-2024 ambulatory GUZMAN VASQUEZ Facility:[facility] Start: 07-18-2024 End: 07-18-2024 Subsequent hospital visit by physician [employer] [facility] (I-Stat/1.5t) Work Phone: Radiology Comment on above: 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] Start: 07-16-2024 End: 07-16-2024 ambulatory Deidre Schrader Facility:[facility] Start: 07-08-2024 End: 07-08-2024 ambulatory Lamont José Facility:[facility] Start: 07-04-2024 End: 07-04-2024 ambulatory Guzman Henaomary DO Work Phone: Hematology/Oncology Comment on above: Malignant neoplasm o f splenic flexure (HCC) (Primary Dx); Abnormal CT of liver Start: 07-04-2024 End: 07-04-2024 Patient encounter procedure Guzman Vasquez DO Work Phone: Hematology/Oncology Start: 06-23-2024 ambulatory Lamont Martinez lity:[facility] Start: 06-23-2024 End: 06-28-2024 Evaluation and management of inpatient Lamont José Facility:[facility] Start: 06-23-2024 ambulatory Lamont Martinez lity:[facility] Start: 07-30-2022 End: 07-30-2022 Patient encounter procedure Sadiq Villalobos REEL MAN.KAIAKO KURA KAUPAPA MAORI Work Phone: [facility] Comment on above: Sinobronchitis (Prim elvin Dx) Start: 05-26-2017 End: 05-26-2017 Emergency department patient visit KAMERON Wolfe THAIS [facility] Procedures Date Procedure Procedure Detail Performing Clinician Start: 04-08-2025 Urine microalbumin/creatinine ratio measurement eDidre Schrader ASPHALT 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 Work Phone: Start: 04-08-2025 Vitamin D, 25-hydrox y measurement Deidre Schrader ASPHALT 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 Work Phone: Comment on above: Vitamin D StatusDefi ciency: <20 ng/mL (50nmol/L)Insufficiency: 20-30 ng/mL (50-75 nmol/L)Sufficiency: 30-100 ng/mL (75-250 nmol/L)Toxicity: >100 ng/mL (>250 nmol/L) Start: 03-03-2025 MILLICENT Chaves MOLECULAR (POC) Davey Cullen APRN.KAIAKO KURA KAUPAPA MAORI Work Phone: Plan of Treatment Date Care Activity Detail Author Start: 06-08-2025 Influenza vaccination [facility] Start: 04-17-2025 End: 04-17-2025 Patient encounter procedure 04/17/2025 1:00 PM EDT Office Visit Otolaryngology [address] [id number] Marcelino Morales MD [address] [id number] DALE (obstructive sleep apnea) [G47.33]; Intolerance of continuous positive airway pressure (CPAP) ventilation [Z78.9] Otolaryngology Comment on above: DALE (obstructive sle ep apnea) [G47.33]; Intolerance of continuous positive airway pressure (CPAP) ventilation [Z78.9] Start: 02-18-2025 End: 02-18-2025 Patient encounter procedure 02/18/2025 2:00 PM EDT Office Visit Neurology [address] [place] [address] [facility] Comment on above: [facility] Start: 02-04-2025 End: 02-04-2025 Patient encounter procedure 02/04/2025 8:20 AM EDT Appointment Cat Scan [address] [place] [address] Lung nodules [R91.8] Cat Scan Comment on above: Lung nodules [R91.8] Start: 02-02-2025 End: 02-02-2025 Patient encounter procedure 02/02/2025 2:20 PM EDT Appointment Cat Scan [address] [facility] [place], [place] [id number] Lung nodules [R91.8] Cat Scan Comment on above: Lung nodules [R91.8] Start: 11-05-2024 End: 09-04-2025 CT Chest WO contrast [facility] Work Phone: Comment on above: Expected: 11/05/2024 , Expires: 09/04/2025 Start: 11-05-2024 End: 11-05-2024 Patient encounter procedure 11/05/2024 8:20 AM EST Appointment Cat Scan [address] [facility] [place], [place] [id number] Malignant neoplasm of splenic flexure (HCC) [C18.5] Cat Scan Comment on above: 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] Start: 08-26-2024 End: 08-26-2024 ambulatory 08/26/2024 10:00 AM EST [facility] [address] [place] [address] Brandee Mathis, MS [address] [place] [address] Malignant neoplasm of splenic flexure (HCC) [C18.5] [facility] Comment on above: 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] Start: 07-18-2024 End: 07-18-2024 Patient encounter procedure Cat Scan Comment on above: CT Chest 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]; Abnormal CT of liver [R93.2] Start: 06-08-2024 Covid-19 Vaccine ( season) Covid-19 Vaccine ( season) [facility] Start: 06-08-2024 Influenza vaccination Influenza Vacc ine (#1) [facility] Start: 2022 Pneumococcal Vaccine : 50+ (1 of 1 - PCV) Pneumococcal Vaccine: 50+ (1 of 1 - PCV) [facility] Start: 2022 Shingrix Vaccine (1 of 2) Shingrix Vaccine (1 of 2) [facility] Start: 06-08-2022 Influenza vaccination INFLUENZA (#1) [facility] Start: 10-08-2021 DEPRESSION ASSESSMENT DEPRESSION ASS ESSMENT [facility] Start: 2017 COLOGUARD (FIT-DNA) COLOGUARD (FIT-D NA) [facility] Start: 2017 Colonoscopy COLONOSCOPY [facility] Start: 2017 COLORECTAL CANCER SCREENING COLORECTAL CANCER SCREENING [facility] Start: [address] COLONOGRAPHY [facility] Start: 2017 DIABETES SCREEN DIABETES SCREEN [facility] Start: 2017 Diabetes Screening Diabetes Screenin g [facility] Start: 2017 FECAL OCCULT BLOOD FECAL OCCULT BLOO D [facility] Start: 2017 Screening for malignant neoplasm of colon [facility] Start: 2017 SIGMOIDOSCOPY SIGMOIDOSCOPY [facility] Start: 2007 Lipid panel Lipid Screening [facility] Start: 2007 LIPID SCREEN LIPID SCREEN [facility] Start: 1991 Hepatitis B Vaccine (1 of 3 - 19+ 3-dose series) Hepatitis B Vaccine (1 of 3 - 19+ 3-dose series) [facility] Start: 1991 Urine microalbumin profile [facility] Start: 1990 Anxiety Screening Anxiety Screening [facility] Start: 1990 Depression Screening Depression Scre ening [facility] Start: 1990 HEPATITIS C SCREENING HEPATITIS C [facility] Start: 1990 Hepatitis C screening Hepatitis C [facility] Start: 1990 HIV SCREENING HIV SCREENING [facility] Start: 1990 HIV screening HIV Screening [facility] Start: 04-16-1973 COVID-19 VACCINE (#1) COVID-19 VACCI NE (#1) [facility] Start: 1972 HEPATITIS B (1 of 3 - 3-dose series) HEPATITIS B (1 of 3 - 3-dose series) [facility] End: 08-03-2025 CT Chest WO contrast CT CHEST WO IVCON Radiology Routine Malignant neoplasm of splenic flexure (HCC) 1 Occurrences starting 07/04/2024 until 08/03/2025 [facility] Comment on above: 1 Occurrences starti ng 07/04/2024 until 08/03/2025 CT Chest WO contrast CT CHEST WO IVCON Radiology Routine Malignant neoplasm of splenic flexure (HCC) 07/18/2024 10:52 AM EDT [facility] Work Phone: End: 12-09-2025 CT Chest WO contrast CT CHEST WO IVCON Radiology Routine Lung nodules 1 Occurrences starting 11/09/2024 until 12/09/2025 [facility] Work Phone: Comment on above: 1 Occurrences starti ng 11/09/2024 until 12/09/2025 CT Chest WO contrast CT CHEST WO IVCON Radiology Routine Lung nodules 02/04/2025 8:43 AM EDT [facility] Work Phone: HOME SLEEP APNEA KARL T (HSAT) HOME SLEEP APNEA TEST (HSAT) Procedures Routine DALE (obstructive sleep apnea) 1 Occurrences starting 01/22/2025 [facility] Comment on above: 1 Occurrences starti ng 01/22/2025 End: 02-21-2026 MR Cervical spine WO contrast MRI CERVICAL SPINE WO IVCON Radiology Routine Spinal stenosis of cervical region Intractable chronic migraine without aura and without status migrainosus Cervicalgia DISH (diffuse idiopathic skeletal hyperostosis) Occipital neuralgia of left side 1 Occurrences starting 01/22/2025 until 02/21/2026 [facility] Work Phone: Comment on above: 1 Occurrences starti ng 01/22/2025 until 02/21/2026 End: 08-03-2025 MR Liver WO and W contrast IV MRI LIVER WO/W IVCON Radiology Routine Malignant neoplasm of splenic flexure (HCC) Abnormal CT of liver 1 Occurrences starting 07/04/2024 until 08/03/2025 [facility] Work Phone: Comment on above: 1 Occurrences starti ng 07/04/2024 until 08/03/2025 MR Liver WO and W contrast IV MRI LIVER WO/W IVCON Radiology Routine Malignant neoplasm of splenic flexure (HCC) Abnormal CT of liver 07/18/2024 12:48 PM EDT [facility] Work Phone: Payers Date Payer Category Payer Self-pay 2023 Private Health Insurance O S [id number] 2023 Unknown [id number] 2019 Unknown [id number] 2004 Unknown [id number] Unknown [id number] 462 Unknown [id number] 462 Unknown [id number]. 462 Unknown [id number]. 462 Unknown [id number]. 462 Unknown [id number]. 462 Unknown [id number]. 462 Unknown [id number]. 462 Unknown [id number] 462 Unknown [id number] 462 Unknown [id number]. 462 Unknown [id number] 462 Unknown [id number] 462 Unknown [id number] 462 Social History Date Type Detail Facility Start: 07-30-2022 End: 06-18-2024 Tobacco smoking status MOIS Never smoked tobacco [facility] Start: 07-30-2022 Tobacco use and exposure Smokeless tobacco non-user [facility] Start: 07-30-2022 End: 04-17-2025 Alcohol intake Current non-drinker of alcohol (finding) [facility] Start: 1970 Sex Assigned At Not on file C [facility] Start: 07-20-2022 End: 07-30-2022 Exposure to SARS-CoV-2 (event) Not sure [facility] Work Phone: Start: 07-04-2024 End: 04-01-2025 History of Social function [facility] Start: 07-04-2024 End: 04-01-2025 Tobacco use panel [facility] Start: 09-08-2012 National Score (1-100), lower number is lower risk 41 [facility] Start: 1970 Sex Assigned At Male W [facility] Medical Equipment Procedure Code Equipment Code Equipment Origin al Text Equipment Identifier Dates Colonoscopy Ligation clip, metallic [id number] FDA Start: 06-03-2024 Surgical staple loading unit, cutting ()[id number] FDA Start: 06-23-2024 Open-surgery man ual linear cutting stapler, single-use ()[id number] FDA Start: 06-23-2024 Ligation clip, synthetic polymer, non-bioabsorbable ()[id number] FDA Start: 06-23-2024 Clinical Notes 07-30-2022 to 06-18-2025 Mel Hall - 06/18/2025 11:43 AM EDTTelephone Encounter - Antonina Guzman LPN - 04/24/2025 1:39 PM EDTTelephone Encounter - Antonina Guzman LPN - 04/24/2025 1:39 PM EDTPatient Instructions Note Date & Type Note Facility 06-18-2025 Note HNO ID: [id number] Author: ?, ?, ? Service: ? Author Type: ? 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 Pt stated he stopped the gabapentin and the pain and swell on his hands. Also Pt was given Dr Kishore Diana phone number to make appt. Antonina Guzman LPN [facility] 04-24-2025 Miscellaneous Notes TC to Pt. Pt stated he stopped the gabapentin and the pain and swell on his hands. Also Pt was given Dr Kishore Diana phone number to make appt. Antonina Guzman LPN Dentist Dr Kishore Diana has an office in [place] as well as in [place] Sindhu Dial APRN.CHERIE Please inform patient to stop gabapentin to see if swelling resolves over the weekend. Regarding dentist in the [place] area, I am not familiar with one. We could place referral to [facility] dentistry. Will ask Adelita Rodríguez CNP (last saw patient) if she is aware of a dentist in the area, Kameron Rios MD Patient calls and states that he had seen ENT last week to talk about other options to treat his sleep apnea. ENT had mentioned that he could be fitted for a mouth guard. Patient is asking if there is a dentist around the area of [place] that provider would recommend to do this? Patient also reports that provider had put him on Gabapentin for head pain. Patient states that this helped somewhat but it also caused pain and swelling in his fingers and toes. Patient asking if there is something else that can be prescribed to help with Head pain? Please review and advise, Sofya Walton RN documented in this encounter [facility] 04-24-2025 Telephone encounter Note Dentist Dr Kishore Diana has an office in [place] as well as in [place] Sindhu Dial APRN.KAIAKO KURA KAUPAPA MAORI [facility] 04-23-2025 Telephone encounter Note Please inform patient to stop gabapentin to see if swelling resolves over the weekend. Regarding dentist in the [place] area, I am not familiar with one. We could place referral to [facility] dentistry. Will ask Adelita Rodríguez CNP (last saw patient) if she is aware of a dentist in the area, Kameron Rios MD [facility] 04-22-2025 Telephone encounter Note Patient calls and states that he had seen ENT last week to talk about other options to treat his sleep apnea. ENT had mentioned that he could be fitted for a mouth guard. Patient is asking if there is a dentist around the area of [place] that provider would recommend to do this? Patient also reports that provider had put him on Gabapentin for head pain. Patient states that this helped somewhat but it also caused pain and swelling in his fingers and toes. Patient asking if there is something else that can be prescribed to help with Head pain? Please review and advise, Sofya Walton RN [facility] 04-17-2025 Note HNO ID: [id number] Author: MARCELINO MORALES MD Service: ? Author Type: Physician Type: Progress Notes Filed: 04/17/2025 13:27 Note Text: This consult is seen at the kind request of of practitioner Sindhu Dial of sleep medicine, and my final recommendations will be communicated to the requesting health care provider by way of shared electronic medical record. This note is formatted with the impression and plan first and the history and physical to follow. IMPRESSION 54-year-old male with moderate DALE and obstructive sleep. RECOMMENDATION/PLAN I discussed with patient regarding his options which include CPAP, oral appliance or possible inspire. He will need a drug-induced sleep endoscopy before we can know if he is a good candidate for inspire. After our discussion, patient wishes to try oral appliance first. I have given him a list of dentist in the area. I can see him back if he changes mind or if he fails oral appliance. Chief Complaint Obstructive sleep apnea unable to tolerate CPAP History of Present Illness Addy Byrnes is a 54 year old male presents for evaluation of sleep apnea unable to tolerate CPAP. Patient was diagnosed with sleep apnea 4 to 5 years ago and has tried CPAP in the past and cannot tolerate it. Patient states that he cannot get comfortable with the mask and he cannot tolerate due to the constant air blowing into his. Patient had a sleep study on February 18, 2025 which showed moderate obstructive sleep apnea with AHI of 21.7. There is no significant mixed or central apnea. PAST MEDICAL HISTORY Diagnosis Date Allergic rhinitis, cause unspecified Diabetes mellitus (HCC) Migraine without aura Urinary calculus, unspecified Renal stones PAST SURGICAL HISTORY Procedure Laterality Date SEPTOPLASTY/SUBMUCOUS RESECJ W/WO CARTILAGE GRF Septoplasty VASECTOMY UNI/BI SPX W/POSTOP SEMEN EXAMS 11/27/08 FAMILY HISTORY Problem Relation Age of Onset Dementia Mother other (CHF) Father Colon Cancer Father Hypertension Brother Hypertension Brother No Known Problems Brother No Known Problems Brother No Known Problems Maternal Grandmother Heart Attack Paternal Grandfather CURRENT OUTPATIENT MEDICATIONS Current Outpatient Medications on File Prior to Visit Medication Sig CPAP/BIPAP/OTHER Type .CPAPSettings into a note to see current settings/supplies/DME information. MOUNJARO 2.5 mg/0.5 mL pen injector gabapentin (NEURONTIN) 300 mg capsule Take 1 capsule by mouth two times a day for 90 days. No current facility-administered medications on file prior to visit. ALLERGIES ALLERGIES No Known Allergies The remainder of the patient's history and review of systems is on the outpatient questionaire which was reviewed by me and placed in the outpatient chart. PHYSICAL EXAMINATION Appearance: General examination of the patient's external face, head and neck reveals no abnormalities. The patient is not retrognathic The patient's voice is strong and clear and they communicate easily. Ears: Exam of the ears revealed normal appearing external auditory canals, tympanic membranes, and middle ears. No signs of infection or fluid were seen. Nose: External nasal exam was normal. Throat: There were no lesions to visualization or palpation of the lips, cheeks, gums, floor of mouth, tongue, hard and soft palate, tonsillar pillars or posterior pharyngeal wall. The patient is a Dunlap Tongue Position 3 and has grade 1 tonsils. Neck: Palpation of the neck revealed no adenopathy, salivary gland masses or asymmetry, or thyroid masses or enlargement. Marcelino Morales MD [facility] 04-17-2025 History of Presen t illness Narrative This consult is seen at the kind request of of practitioner Sindhu Dial of sleep medicine, and my final recommendations will be communicated to the requesting health care provider by way of shared electronic medical record. This note is formatted with the impression and plan first and the history and physical to follow. IMPRESSION 54-year-old male with moderate DALE and obstructive sleep. RECOMMENDATION/PLAN I discussed with patient regarding his options which include CPAP, oral appliance or possible inspire. He will need a drug-induced sleep endoscopy before we can know if he is a good candidate for inspire. After our discussion, patient wishes to try oral appliance first. I have given him a list of dentist in the area. I can see him back if he changes mind or if he fails oral appliance. Chief Complaint Obstructive sleep apnea unable to tolerate CPAP History of Present Illness Addy Byrnes is a 54 year old male presents for evaluation of sleep apnea unable to tolerate CPAP. Patient was diagnosed with sleep apnea 4 to 5 years ago and has tried CPAP in the past and cannot tolerate it. Patient states that he cannot get comfortable with the mask and he cannot tolerate due to the constant air blowing into his. Patient had a sleep study on February 18, 2025 which showed moderate obstructive sleep apnea with AHI of 21.7. There is no significant mixed or central apnea. PAST MEDICAL HISTORY Diagnosis Date Allergic rhinitis, cause unspecified Diabetes mellitus (HCC) Migraine without aura Urinary calculus, unspecified Renal stones PAST SURGICAL HISTORY Procedure Laterality Date SEPTOPLASTY/SUBMUCOUS RESECJ W/WO CARTILAGE GRF Septoplasty VASECTOMY UNI/BI SPX W/POSTOP SEMEN EXAMS 11/27/08 FAMILY HISTORY Problem Relation Age of Onset Dementia Mother other (CHF) Father Colon Cancer Father Hypertension Brother Hypertension Brother No Known Problems Brother No Known Problems Brother No Known Problems Maternal Grandmother Heart Attack Paternal Grandfather CURRENT OUTPATIENT MEDICATIONS Current Outpatient Medications on File Prior to Visit Medication Sig CPAP/BIPAP/OTHER Type .CPAPSettings into a note to see current settings/supplies/DME information. MOUNJARO 2.5 mg/0.5 mL pen injector gabapentin (NEURONTIN) 300 mg capsule Take 1 capsule by mouth two times a day for 90 days. No current facility-administered medications on file prior to visit. ALLERGIES ALLERGIES No Known Allergies The remainder of the patient's history and review of systems is on the outpatient questionaire which was reviewed by me and placed in the outpatient chart. PHYSICAL EXAMINATION Appearance: General examination of the patient's external face, head and neck reveals no abnormalities. The patient is not retrognathic The patient's voice is strong and clear and they communicate easily. Ears: Exam of the ears revealed normal appearing external auditory canals, tympanic membranes, and middle ears. No signs of infection or fluid were seen. Nose: External nasal exam was normal. Throat: There were no lesions to visualization or palpation of the lips, cheeks, gums, floor of mouth, tongue, hard and soft palate, tonsillar pillars or posterior pharyngeal wall. The patient is a Dunlap Tongue Position 3 and has grade 1 tonsils. Neck: Palpation of the neck revealed no adenopathy, salivary gland masses or asymmetry, or thyroid masses or enlargement. Marcelino Morales MD Tobacco Use: Never Was smoking cessation packet given? N/A - Patient is a non-smoker or quit >1 year ago. Was a referral initiated?N/A Patient is a non-smoker documented in this encounter [facility] 04-17-2025 Instructions Marcelino Morales MD - 04/17/2025 1:17 PM EDT Mandibular Advancement Device or Oral Appliance: An oral appliance is a custom-fit mouthguard that gently keeps the lower part of the jaw forward in order to open the back of your throat while you are sleeping. It is more effective for mild to moderate Obstructive Sleep Apnea. It is generally made and adjusted by a Sleep Dentist. A repeat a Home Sleep Study is usually performed after the oral appliance is optimally adjusted in order to evaluate its effectiveness. Below are details for dentists that have been approved by the [place] [employer] for Oral Appliance for Obstructive Sleep Apnea in the [facility]. Lesly Wills [address] [facility] [address] [facility] [address] [place] [address] Professional Website: [email or web address] [email or web address] guillermo Kellyly [address] [facility] [address] [place] [address] Professional Website: [email or web address]/ Julian Escamilla [address] [facility] [address] [place] [address] Professional Website: [email or web address] Biologics Fredrick Menendez [address] [place] [address] Professional Website: [email or web address] Lori Willis [address] [place] [address] Professional Website: [email or web address]/ Jamia Dunbar [facility] [address] [place] [address] Professional Website: [email or web address]/ [facility] [address] [place] [address]/[place] [address] Professional Website: [email or web address] Angel Pham [address] [place] [address] Professional Les Beltran [address] [facility]. [address] [place] [address] Professional Website: [email or web address] Georgiana Chambers [address] [place] [address] Professional Website: [email or web address] Tiburcio Willis [address] [place] [id number] Professional Website: [email or web address] Gopal Anderson [address] [place] [address] Professional Website: [email or web address] 8 Games.AccelGolf Nabeel Lang [facility] [place] Nabeel Lang DDS [address] [facility] [address] [place] [address] Professional Website: [email or web address] Era Portfolio Corina Championohvee [address] [place] [address] Professional Website: [email or web address] Vinnie Callahan [address] [place], [place] Professional [address] [place] [address] Professional Website: [email or web address] Medical documented in this encounter [facility] 04-17-2025 Note HNO ID: [id number] Author: CIARRA NIX OCCA Service: ? Author Type: Boat Outboard Engine Mechanic Type: Progress Notes Filed: 04/17/2025 13:27 Note Text: Tobacco Use: Never Was smoking cessation packet given? N/A - Patient is a non-smoker or quit >1 year ago. Was a referral initiated?N/A Patient is a non-smoker [facility] 04-09-2025 Evaluation note Diagnosis Onset Date Resolution Elevated LDL cholesterol level acute April 09, 2025 8:41am Vitamin D insufficiency acute J freedom 2024 8:41am Diabetes chronic April 09, 2025 8:41am Overweight chronic April 09, 2025 8:41am [facility] Work Phone: 1(524) 369-338506-25-2025 NoteHNO ID: [id number] Author: ANTONINA GUZMAN LPN Service: ? Author Type: LICENSED NURSE Type: Progress Notes Filed: 04/01/2025 15:54 Note Text: Faxed mask/supply order to [facility]. [facility] History of Present illness Narrative* Antonina Guzman LPN - 04/01/2025 3:53 PM EDT Faxed mask/supply order to [facility]. Antonina Guzman LPN * Sindhu Dial APRN.KAIAKO KURA KAUPAPA MAORI - 04/01/2025 10:00 AM EDT Images from the original note were not included. [facility] Follow up/ Established patient visit Recording using HotGrinds software for draft documentation of the visit was discussed with the patient/authorized motor vehicle field representative; all questions welcomed and answered. Patient/authorized motor vehicle field representative agreed to proceed Assessment/Plan from last visit: Date of last visit : 01/22/2025 ASSESSMENT/PLAN: 1. Intractable chronic migraine without aura and without status migrainosus - ICD9: 346.71, ICD10: G43.719 (primary diagnosis) 2. Spinal stenosis of cervical region - ICD9: 723.0, ICD10: M48.02 3. Cervicalgia - ICD9: 723.1, ICD10: M54.2 4. DISH (diffuse idiopathic skeletal hyperostosis) - ICD9: 721.6, ICD10: M48.10 5. Occipital neuralgia of left side - ICD9: 723.8, ICD10: M54.81 Patient with chronic headaches since childhood that appear to be of mixed nature including: migraine headaches with associated sensitivities such as photophobia; occipital neuralgia which in turn could exacerbate or be exacerbated by migraine; and cervicogenic headache which could also exacerbate occipital neuralgia and migraines. He has had distant head imaging since headaches that reportedly was unremarkable and exam is non focal. He has also had prior C spine imaging (not MRI) showing DISH and disc degeneration per pt and for which he is followed by chiropractor and for which therapy in the past has provided no relief. D/w pt in detail. Feel at this time, therapy by means of headache preventative meds is appropriate while also obtaining further workup of C spine pain which appears to be primary trigger for headaches at this time. Plan as follows: -For headaches and cervicalgia, start on gabapentin 300mg BID. SE and ADRs d/w pt. No reported renal disease but will get most recent CMP from PCP to confirm. -To evaluate C spine for possible significant stenosis, will obtain MRI C spine. Again, prior therapy without improvement of symptoms and XRs in past reportedly showing DISH. -Patient will follow up in 2-3 months for full in office exam including funduscopic examination. Further plan to be determined at that time depending on response to gabapentin. -D/w pt possible steroids in attempt to break headache cycle but DM, and uncertain at this time howelevated glucose is and not wanting to further exacerbate with steroids. 6. DALE (obstructive sleep apnea) - ICD9: 327.23, ICD10: G47.33 Prior diagnosis at outside office. Uncertain if still an issues at this time - may have previously been further exacerbating headaches, DM and HTN. Pt could not tolerate PAP in the past, but explained other treatment options if needed. Deutsch at this time is to determine if DALE still present and if so, how severe, as pt has had 25+ pound weight loss since that prior study with witnessed symptoms improving, including less snoring and pt not sleepy during day. To further evaluate, will get HSAT. Discussed with patient: the physiology of OSAS, medical conditions associated with OSAS (DM, HTN, CAD, Depression, Stroke, Headache...) and treatment options (UPPP, Dental appliances, CPAP...). Advised patient to avoid activities that could harm self or others when tired/sleepy, including driving and/or operating heavy machinery. Encouraged weight loss, and continued compliance with other medications. Kameron Rios MD CURRENT VISIT: 04/01/2025 INTERVAL HISTORY: 02/18/25 HSAT: CHRISTIE 21.7, supine CHRISTIE 71.5 Prior hx of DALE, didn't tolerate PAP therapy 1. Concerns: - Sleep Apnea - Patient is a 54-year-old male presenting with a history of sleep apnea. - Initially diagnosed with sleep apnea several years ago. - Previously tried CPAP therapy but could not tolerate it and experienced worsening sleep. - Recent home sleep study on 02/18/25 confirmed ongoing sleep apnea with an AHI of 21.7 events per hour, indicating moderate sleep apnea. - Supine AHI was 71.5 events per hour, indicating severe sleep apnea when on his back. - Non-supine AHI was 13.6 events per hour, indicating mild sleep apnea when not on his back. - Reports feeling terrible a lot of the time, with a history of headaches since childhood and tightness. - Patient has lost about 30 pounds recently but still experiences symptoms of sleep apnea. - Diagnosed with diabetes and reports difficulty managing blood sugar levels, with morning sugars rarely below 200 despite lifestyle changes and medication (Leah). - Patient has a history of nasal septoplasty and vasectomy, and had a cancer mass removed last June. 2. Sleep history: - Overall goals of treatment: Improve sleep quality and overall health, including better managementof diabetes and reduction of headaches. - Use of PAP or prior treatments: - PAP experience: Previously tried CPAP therapy but could not tolerate it, leading to worsening sleep. - Current PAP usage: No 3. Sleep study: - Type: Home Sleep Study - Date: 02/18/25 - Apnea-hypopnea index (AHI): 21.7 - Supine AHI: 71.5 - Non-supine AHI: 13.6 - Lowest oxygen saturation: 73% - T90 (Time with saturation <90%): 9 minutes ROS Constitutional: (+) insomnia, (+) fatigue Neurological: (+) headaches Musculoskeletal: (+) muscle tightness PATIENT-ENTERED QUESTIONNAIRE SLEEP SCORES: 03/31/2025 Sleep Questions Reason for visit: Sleep apnea Difficulty falling or staying asleep or poor sleep quality Accidents or near accidents due to drowsy drivin Multiple values from one day are sorted in reverse-chronological order 01/20/2025 03/31/2025 [place] Sleepiness Scale Score 5 (No clinically significant daytime sleepiness) 5 (No clinically significant daytime sleepiness) 01/20/2025 03/31/2025 PROMIS CAT Sleep Disturbance PROMIS Sleep Disturbance T-Score 47 (within normal limits) 48 (within normal limits) PROMIS Sleep Disturbance Percentile 62 58 ALLERGIES No Known Allergies CURRENT MEDICATIONS: MOUNJARO 2.5 mg/0.5 mL pen injector gabapentin (NEURONTIN) 300 mg capsule Take 1 capsule by mouth two times a day for 90 days. PHYSICAL EXAMINATION: Vital Signs: BP 117/74 Pulse 86 Resp 16 Wt 71.2 kg (157 lb) SpO2 96% BMI 26.95 kg/m PHYSICAL EXAM: General appearance: pleasant, NAD Mental status: alert and oriented, able to provide own history Constitutional: WNL Skin: No visible rashes on exposed skin Neuro: No focal deficits observed, no tremors Assessment /Plan Dale (obstructive sleep apnea) (primary encounter diagnosis) Intolerance of continuous positive airway pressure (cpap) ventilation Addy Byrnes is a 54 year old male with at least moderate DALE which becomes severe in supine sleep, hx of CPAP intolerance, chronic headaches, hx colon cancer, DM2 1. DALE (obstructive sleep apnea) (G47.33) Intolerance of continuous positive airway pressure (CPAP) ventilation (Z78.9) Patient has a history of moderate to severe DALE with an AHI of 21.7 events per hour, as confirmed by a home sleep study on 02/18/25. Demonstrates significant positional variation, with severe apnea (71.5 events/hour) when supine and mild apnea (13.6 events/hour) when non-supine. Previous CPAP therapy was poorly tolerated, leading to worsened sleep quality. Patient has lost approximately 30 pounds since initial diagnosis, but DALE persists. Patient expresses interest in alternative treatments due to longstanding headaches and poorly controlled diabetes, potentially exacerbated by untreated DALE. - Discussed the risks of untreated DALE, including chronic inflammation, cardiovascular strain, and potential exacerbation of comorbid conditions such as diabetes and headaches. - Educated patient on the Inspire device, a hypoglossal nerve stimulator, as a viable alternative for those with moderate to severe DALE who cannot tolerate CPAP. Explained the surgical procedure, including the implantation of the device in the right upper chest and the lead placement under the machelle stimulate tongue movement during sleep. - Informed patient about the necessity of a DISE (drug-induced sleep endoscopy) to assess airway collapse type, ensuring suitability for Inspire therapy. - Initiated referral to Sleep Surgery ENT for evaluation of Inspire candidacy. - Advised patient on the requirement of a 30-day documented CPAP trial by [facility] for Inspire approval. Discussed options for fulfilling this requirement, including using the existing CPAP machine with new supplies or obtaining a new machine through a DME company. He declines Rx for a new machine. Pt signed release form so we can get sleep study report and records from Dr Pedroza, the doctor who diagnosed and treated his DALE originally. Pt doesn't know what brand machine he has or the pressure(s). I will write an order for PAP supplies for [facility], but I will need to add pressuresetting later. - Patient understands the plan and agrees to proceed with the ENT referral and CPAP trial documentation. Sindhu Dial APRN.CNP [facility] Inst[facility]* Patient Instructions* Sindhu Dial APRN.CNP - 04/01/2025 10:28 AM EDT Josef -- I'll send your order for CPAP supplies to them Dr. Pantoja, Dr. Morales, or Dr. Cabral for Inspire evaluation documented in this [facility]25 NoteHNO ID: [id number] Author: SINDHU DIAL APRN.CNP Service: ? Author Type: Nurse Practitioner Type: Progress Notes Filed: 04/01/2025 15:28 Note Text: [facility] Follow up/ Established patient visit Recording using HotGrinds software for draft documentation of the visit was discussed with the patient/authorized motor vehicle field representative; all questions welcomed and answered. Patient/authorized motor vehicle field representative agreed to proceed Assessment/Plan from last visit: Date of last visit : 01/22/2025 ASSESSMENT/PLAN: 1. Intractable chronic migraine without aura and without status migrainosus - ICD9: 346.71, ICD10: G43.719 (primary diagnosis) 2. Spinal stenosis of cervical region - ICD9: 723.0, ICD10: M48.02 3. Cervicalgia - ICD9: 723.1, ICD10: M54.2 4. DISH (diffuse idiopathic skeletal hyperostosis) - ICD9: 721.6, ICD10: M48.10 5. Occipital neuralgia of left side - ICD9: 723.8, ICD10: M54.81 Patient with chronic headaches since childhood that appear to be of mixed nature including: migraine headaches with associated sensitivities such as photophobia; occipital neuralgia which in turn could exacerbate or be exacerbated by migraine; and cervicogenic headache which could also exacerbate occipital neuralgia and migraines. He has had distant head imaging since headaches that reportedly was unremarkable and exam is non focal. He has also had prior C spine imaging (not MRI) showing DISH and disc degeneration per pt and for which he is followed by chiropractor and for which therapy in the past has provided no relief. D/w pt in detail. Feel at this time, therapy by means of headache preventative meds is appropriate while also obtaining further workup of C spine pain which appears to be primary trigger for headaches at this time. Plan as follows: -For headaches and cervicalgia, start on gabapentin 300mg BID. SE and ADRs d/w pt. No reported renal disease but will get most recent CMP from PCP to confirm. -To evaluate C spine for possible significant stenosis, will obtain MRI C spine. Again, prior therapy without improvement of symptoms and XRs in past reportedly showing DISH. -Patient will follow up in 2-3 months for full in office exam including funduscopic examination. Further plan to be determined at that time depending on response to gabapentin. -D/w pt possible steroids in attempt to break headache cycle but DM, and uncertain at this time how elevated glucose is and not wanting to further exacerbate with steroids. 6. DALE (obstructive sleep apnea) - ICD9: 327.23, ICD10: G47.33 Prior diagnosis at outside office. Uncertain if still an issues at this time - may have previously been further exacerbating headaches, DM and HTN. Pt could not tolerate PAP in the past, but explained other treatment options if needed. Deutsch at this time is to determine if DALE still present and if so, how severe, as pt has had 25+ pound weight loss since that prior study with witnessed symptoms improving, including less snoring and pt not sleepy during day. To further evaluate, will get HSAT. Discussed with patient: the physiology of OSAS, medical conditions associated with OSAS (DM, HTN, CAD, Depression, Stroke, Headache...) and treatment options (UPPP, Dental appliances, CPAP...). Advised patient to avoid activities that could harm self or others when tired/sleepy, including driving and/or operating heavy machinery. Encouraged weight loss, and continued compliance with other medications. Kameron Rios MD CURRENT VISIT: 04/01/2025 INTERVAL HISTORY: 02/18/25 HSAT: CHRISTIE 21.7, supine CHRISTIE 71.5 Prior hx of DALE, didn't tolerate PAP therapy 1. Concerns: - Sleep Apnea - Patient is a 54-year-old male presenting with a history of sleep apnea. - Initially diagnosed with sleep apnea several years ago. - Previously tried CPAP therapy but could not tolerate it and experienced worsening sleep. - Recent home sleep study on 02/18/25 confirmed ongoing sleep apnea with an AHI of 21.7 events per hour, indicating moderate sleep apnea. - Supine AHI was 71.5 events per hour, indicating severe sleep apnea when on his back. - Non-supine AHI was 13.6 events per hour, indicating mild sleep apnea when not on his back. - Reports feeling terrible a lot of the time, with a history of headaches since childhood and tightness. - Patient has lost about 30 pounds recently but still experiences symptoms of sleep apnea. - Diagnosed with diabetes and reports difficulty managing blood sugar levels, with morning sugars rarely below 200 despite lifestyle changes and medication (Leah). - Patient has a history of nasal septoplasty and vasectomy, and had a cancer mass removed last June. 2. Sleep history: - Overall goals of treatment: Improve sleep quality and overall health, including better management of diabetes and reduction of headaches. - Use of PAP or prior treatments: - PAP experience: Previou (more content not included)...[facility]05-[facility] Telephone encounter Note* Telephone Encounter - Haleigh Anderson OCCA - 03/04/2025 5:05 PM EDT Please assist patient in scheduling follow up appointment with [facility] to discuss HSAT results. Thank you. VINITA Rios [facility]05-28-2025 Telephone encounter Note* Telephone Encounter - Haleigh Anderson OCCA - 03/04/2025 5:05 PM EDT ----- Message from Kameron Rios MD sent at 03/04/2025 2:09 PM EDT ----- Please make sure pt has follow up scheduled. Kameron Rios MD [facility]05-28-2025 Miscellaneous Notes* Telephone Encounter - Haleigh Anderson OCCA - 03/04/2025 5:05 PM EDT Please assist patient in scheduling follow up appointment with [facility] to discuss HSAT results. Thank you. VINITA Rios * Telephone Encounter - Haleigh Anderson OCCA - 03/04/2025 5:05 PM EDT ----- Message from Kameron Rios MD sent at 03/04/2025 2:09 PM EDT ----- Please make sure pt has follow up scheduled. Kameron Rios MD documented in this encounterKind[facility]-2025 NoteHNO ID: [id number] Author: DAVEY CULLEN APRN.KAIAKO KURA [facility] MAORI Service: ? Author Type: Nurse Practitioner Type: Progress Notes Filed: 03/03/2025 08:48 Note Text: [facility] NOTE Subjective Addy Byrnes is a 54 year old year old who presents to [facility] today with complaint of sore throat 9/10 pain, has taken no medications/treatments. Used Kelley Tea last night. Denies headaches, fever, cough, shortness of breath, chest pains, Nausea, vomiting, changes in bowel or bladder or skin rashes. No current medication treatments. Aside from symptoms as described above, patient has no other complaints at this time. HPI: see above Review of Systems Constitutional: Positive for fatigue. Negative for chills and fever. HENT: Positive for congestion (mild), ear pain, rhinorrhea (clear fluid in nares) and sore throat (9/10). Negative for sinus pressure and trouble swallowing. Ear discharge: Right. Eyes: Negative for pain, discharge, redness and itching. Respiratory: Negative for cough, chest tightness, shortness of breath and wheezing. Cardiovascular: Negative for chest pain, palpitations and leg swelling. Gastrointestinal: Negative for diarrhea, nausea and vomiting. Genitourinary: Negative for dysuria, frequency and urgency. Musculoskeletal: Positive for myalgias (yesterday, none now). Skin: Negative for rash. Neurological: Negative for headaches. Hematological: Negative for adenopathy. ALLERGIES No Known Allergies Current Outpatient Medications on File Prior to Visit Medication Sig MOUNJARO 2.5 mg/0.5 mL pen injector gabapentin (NEURONTIN) 300 mg capsule Take 1 capsule by mouth two times a day for 90 days. No current facility-administered medications on file prior to visit. ACTIVE PROBLEM LIST Sterilization Malignant Neoplasm of Splenic Flexure (Hcc) Social History Tobacco Use Smoking status: Never Smokeless tobacco: Never Vaping Use Vaping status: Never Used Substance Use Topics Alcohol use: No Drug use: No Objective BP 122/82 Pulse 95 Temp 36.6 ?C (97.8 ?F) (Tympanic) Resp 16 Wt 72.3 kg (159 lb 6.3 oz) SpO2 98% BMI 27.36 kg/m? Physical Exam Vitals and nursing note reviewed. Constitutional: General: He is not in acute distress. Appearance: Normal appearance. He is not ill-appearing or toxic-appearing. HENT: Head: Normocephalic and atraumatic. Right Ear: Ear canal and external ear normal. Left Ear: Ear canal and external ear normal. Ears: Comments: TM's slightly bulging with clear fluid Nose: Congestion (mild mucosal edema) and rhinorrhea (clear fluid in nares) present. Right Turbinates: Swollen. Left Turbinates: Swollen. Right Sinus: No maxillary sinus tenderness or frontal sinus tenderness. Left Sinus: No maxillary sinus tenderness or frontal sinus tenderness. Mouth/Throat: Mouth: Mucous membranes are moist. Pharynx: Oropharynx is clear. Posterior oropharyngeal erythema (mild with clear fluid) present. No pharyngeal swelling or oropharyngeal exudate. Eyes: Extraocular Movements: Extraocular movements intact. Conjunctiva/sclera: Conjunctivae normal. Pupils: Pupils are equal, round, and reactive to light. Cardiovascular: Rate and Rhythm: Normal rate and regular rhythm. Pulses: Normal pulses. Heart sounds: Normal heart sounds. Pulmonary: Effort: Pulmonary effort is normal. Breath sounds: Normal breath sounds. No wheezing or rhonchi. Abdominal: General: Bowel sounds are normal. Palpations: Abdomen is soft. Musculoskeletal: Cervical back: Normal range of motion and neck supple. No tenderness. Lymphadenopathy: Cervical: No cervical adenopathy. Skin: General: Skin is warm. Capillary Refill: Capillary refill takes less than 2 seconds. Neurological: General: No focal deficit present. Mental Status: He is alert and oriented to person, place, and time. Assessment/Plan 1. Sore throat (Primary) - STREP A MOLECULAR (POC)- NEGATIVE - LIDOCAINE VISCOUS 2 % solution; Take 15 mL by mouth three times a day as needed. Gargle and spit out medication Dispense: 100 mL; Refill: 0 2. URI, acute - Saline nasal spray BID PRN ok to use for Ear pressure Patient advised to drink fluids, get rest and take all meds as prescribed. Patient given educational materials - see instructions. Discussed use, benefit, and side effects of prescribed medications. All questions answered. Patient advised to follow up with PCP in one week, or sooner if symptoms worsen or persist. If symptoms become severe- GO TO ED. Patient verbalized understanding and agreeable with treatment plan. Davey Cullen APRN [facility] 03/03/2025 8:36 [facility]05-27-2025 History of Present illness Narrative * Davey Cullen APRN.KAIAKO KURA [place] MAORI - 03/03/2025 8:36 AM EDT Images from the original note were not included. [facility] Subjective Addy Byrnes is a 54 year old year old who presents to [facility] care today with complaint of sore throat 9/10 pain, has taken no medications/treatments. Used Kelley Tea last night. Denies headaches, fever, cough, shortness of breath, chest pains, Nausea, vomiting, changes in bowel or bladder or skin rashes. No current medication treatments. Aside from symptoms as described above, patient has no other complaints at this time. HPI: see above Review of Systems Constitutional: Positive for fatigue. Negative for chills and fever. HENT: Positive for congestion (mild), ear pain, rhinorrhea (clear fluid in nares) and sore throat (9/10). Negative for sinus pressure and trouble swallowing. Ear discharge: Right. Eyes: Negative for pain, discharge, redness and itching. Respiratory: Negative for cough, chest tightness, shortness of breath and wheezing. Cardiovascular: Negative for chest pain, palpitations and leg swelling. Gastrointestinal: Negative for diarrhea, nausea and vomiting. Genitourinary: Negative for dysuria, frequency and urgency. Musculoskeletal: Positive for myalgias (yesterday, none now). Skin: Negative for rash. Neurological: Negative for headaches. Hematological: Negative for adenopathy. ALLERGIES No Known Allergies Current Outpatient Medications on File Prior to Visit Medication Sig MOUNJARO 2.5 mg/0.5 mL pen injector gabapentin (NEURONTIN) 300 mg capsule Take 1 capsule by mouth two times a day for 90 days. No current facility-administered medications on file prior to visit. ACTIVE PROBLEM LIST Sterilization Malignant Neoplasm of Splenic Flexure (Hcc) Social History Tobacco Use Smoking status: Never Smokeless tobacco: Never Vaping Use Vaping status: Never Used Substance Use Topics Alcohol use: No Drug use: No Objective BP 122/82 Pulse 95 Temp 36.6 C (97.8 F) (Tympanic) Resp 16 Wt 72.3 kg (159 lb 6.3 oz) SpO2 98% BMI 27.36 kg/m Physical Exam Vitals and nursing note reviewed. Constitutional: General: He is not in acute distress. Appearance: Normal appearance. He is not ill-appearing or toxic-appearing. HENT: Head: Normocephalic and atraumatic. Right Ear: Ear canal and external ear normal. Left Ear: Ear canal and external ear normal. Ears: Comments: TM's slightly bulging with clear fluid Nose: Congestion (mild mucosal edema) and rhinorrhea (clear fluid in nares) present. Right Turbinates: Swollen. Left Turbinates: Swollen. Right Sinus: No maxillary sinus tenderness or frontal sinus tenderness. Left Sinus: No maxillary sinus tenderness or frontal sinus tenderness. Mouth/Throat: Mouth: Mucous membranes are moist. Pharynx: Oropharynx is clear. Posterior oropharyngeal erythema (mild with clear fluid) present. No pharyngeal swelling or oropharyngeal exudate. Eyes: Extraocular Movements: Extraocular movements intact. Conjunctiva/sclera: Conjunctivae normal. Pupils: Pupils are equal, round, and reactive to light. Cardiovascular: Rate and Rhythm: Normal rate and regular rhythm. Pulses: Normal pulses. Heart sounds: Normal heart sounds. Pulmonary: Effort: Pulmonary effort is normal. Breath sounds: Normal breath sounds. No wheezing or rhonchi. Abdominal: General: Bowel sounds are normal. Palpations: Abdomen is soft. Musculoskeletal: Cervical back: Normal range of motion and neck supple. No tenderness. Lymphadenopathy: Cervical: No cervical adenopathy. Skin: General: Skin is warm. Capillary Refill: Capillary refill takes less than 2 seconds. Neurological: General: No focal deficit present. Mental Status: He is alert and oriented to person, place, and time. Assessment/Plan 1. Sore throat (Primary) - STREP A MOLECULAR (POC)- NEGATIVE - LIDOCAINE VISCOUS 2 % solution; Take 15 mL by mouth three times a day as needed. Gargle and spit out medication Dispense: 100 mL; Refill: 0 2. URI, acute - Saline nasal spray BID PRN ok to use for Ear pressure Patient advised to drink fluids, get rest and take all meds as prescribed. Patient given educational materials - see instructions. Discussed use, benefit, and side effects ofprescribed medications. All questions answered. Patient advised to follow up with PCP in one week, or sooner if symptoms worsen or persist. If symptoms become severe- GO TO ED. Patient verbalized understanding and agreeable with treatment plan. Davey Cullen APRN [facility] 03/03/2025 8:36 AM documented in this encounterKindred Hospital [facility]25 Instructions* Patient Instructions* Davey Cullen APRN.KAIAKO KUR[facility] MAORI - 03/03/2025 8:35 AM EDT SORE THROAT INSTRUCTIONS SORE THROAT OVERVIEW - Sore throat is a common problem during childhood, and is usually the result of a bacterial or viral infection. Although sore throat usually resolves without complications, it sometimes requires treatment with an antibiotic. There are some less common causes of sore throat that are serious or even life-threatening. This topic will discuss the most common causes and treatments of sore throat in children, as well as the warning signs of more serious conditions. SORE THROAT CAUSES - The most likely cause of a child's sore throat depends upon the child's age, the season, and the geographic area. While viruses are the most common cause of sore throat, bacteriaare another common cause. Bacteria and viruses are spread from one person to another through hand contact. Hands get contaminated when the sick individual touches their nose or mouth and then touchesanother person directly (gkhj-ix-ykcb contact) or indirectly (owiy-pq-nhmbiw, such as doorknob, telephone, toys). It is difficult to determine the cause of sore throat based upon symptoms alone; an examination andlaboratory test are recommended in most cases Viruses - There are many viruses that can cause pain and swelling of the throat. The most common include viruses that cause sore throat as part of an upper respiratory infection, such as the common cold. Other viruses that cause sore throat include influenza, adenovirus, and Jes-Le virus (thecause of mononucleosis). Symptoms - Symptoms that may occur with a viral infection can include a runny nose and congestion, irritation or redness of the eyes, cough, hoarseness, soreness in the roof of the mouth, a skin rash, or diarrhea. In addition, children with viral infections may have a fever and may feel miserable. A high fever does not necessarily mean that the child has a bacterial infection. Group A streptococcus - Group A streptococcus (GAS) is the name of the bacterium that causes strep throat. Although other bacteria can cause a sore throat, GAS is the most common bacterial cause; up to 30 percent of children with a sore throat will have GAS. Strep throat usually occurs during the winter and early spring, and is most common in school-age children and their younger siblings. Symptoms - Symptoms of strep throat in children older than 3 years often develop suddenly and include fever (temperature ?100.4 F or 38 C), headache, abdominal pain, nausea, and vomiting. Other symptoms can include swollen glands in the neck, white patches of pus in the back or sides of the throat,small red spots on the roof of the mouth, and swelling of the uvula. A cough and cold are not commonly seen in children with strep throat. Strep throat is uncommon in children younger than age 2 to 3 years. However, GAS infection can occur in younger children, and may cause a runny nose and congestion that is prolonged, low-grade fever (?101 F or 38.3 C), and tender glands in the neck. Infants younger than 1 year may be fussy and havea decreased appetite and low-grade fever. SORE THROAT TREATMENT - The treatment of sore throat depends upon the cause; strep throat is treated with an antibiotic while viral pharyngitis is treated with rest, pain relievers, and other measures to reduce symptoms. Strep throat - Strep throat is usually treated with an antibiotic, such as penicillin, or an antibiotic similar to penicillin (eg, amoxicillin). Children who are allergic to penicillin will be given an alternate antibiotic. The antibiotic is usually given in pill or liquid form two or three times per day. A one-time injection is also available, and may be recommended if a child is unwilling to take an oral medication. After completing 24 hours of antibiotics, the child is no longer contagious and may return to school. Symptoms usually improve within 1 to 2 days. However, it is important for the child to finish theentire course of treatment (usually 10 days). If a child does not begin to improve or worsens within 3 days, the child should be reevaluated. Throat pain can be treated with a non-prescription pain medication, if needed. (See 'Pain medications' below.) In addition, parents should monitor their child for dehydration, which can develop if the child is not willing to drink or eat due to a sore throat. (See 'Monitor for dehydration' below.) Viral throat pain - Sore throat caused by viral infections usually last 4 to 5 days. During this time, treatments to reduce pain may be helpful but will not help to eliminate the virus. Antibiotics do not improve throat pain caused by a virus and are not recommended. A child with a viral infection is usually allowed to return to school when there has been no fever for 24 hours and the child feels well enough to pay attention. Pain medications - Throat pain can be treated with a mild pain reliever such as acetaminophen (Tylenol ) or a non-steroidal anti-inflammatory agent such as ibuprofen (Motrin ). These medications should be dosed according to weight, not age. Aspirin is not recommended for children <18 years due to the risk of a potentially serious condition known as Mari syndrome. Monitor for dehydration - Some children with a sore throat are reluctant to drink or eat due to pain. Drinking less fluid can lead to dehydration. To reduce the risk of dehydration, parents can offerwarm or cold liquids. (See 'Other interventions' below.) Signs and symptoms of mild dehydration include a slightly dry mouth, increased thirst, and decreased urine output (one wet diaper or void in six hours). Signs of moderate or severe dehydration include decreased urine output (less than one wet diaper or void in six hours), lack of tears when crying,dry mouth, and sunken eyes. A child who is moderately or severely dehydrated should be evaluated by a healthcare provider as soon as possible to determine if treatment is needed. Oral rinses- Salt-water gargles are an old stand-by for relief of throat pain. It is not clear if this treatmentis effective, but it is unlikely to be harmful. Most recipes suggest 1/4 to 1/2 teaspoon of salt per cup (8 ounces) of warm water. The water should be gargled and then spit out (not swallowed). Children younger than six to eight years are not able to gargle properly. An oral rinse composed of equal parts of diphenhydramine (Benadryl liquid) and Maalox (magnesium hydroxide, aluminum hydroxide, and simethicone) may be helpful for pain caused by a sore mouth or ulcers in the mouth. Children older than six to eight years may swish and spit (not swallow) the mixture. Sprays - Sprays containing topical anesthetics are available to treat sore throat. However, such sprays are no more effective than sucking on hard candy. In addition, a common anesthetic ingredient, benzocaine, can cause allergic reactions. We do not recommend throat sprays for children. Lozenges - A variety of medicated throat lozenges are available to relieve dryness or pain. However, it is not clear that lozenges work any better than hard candy. We do not recommend throat lozengesfor children, especially children younger than 3 to 4 years, who can choke. Sucking on hard candy may provide some relief for children older than 3 to 4 years, who are not at risk for choking. Other interventions - Other interventions include sipping warm beverages (eg, honey or lemon tea, chicken soup), cold beverages, or eating cold or frozen desserts (eg, ice cream, popsicles). These treatments are safe for children. Honey should not be given to children younger than 12 months due to the potential risk of botulism poisoning. Alternative therapies - [employer] food stores, vitamin outlets, and Internet Web sites offer alternative treatments for relief of sore throat pain. We do not recommend these treatments due to the risks of contamination with pesticides/herbicides, inaccurate labeling and dosing information, and a lack of studies showing that these treatments are safe and effective. SORE THROAT PREVENTION - Hand washing is an essential and highly effective way to prevent the spread of infection. Hands should be wet with water and plain soap, and rubbed together for 15 to 30 seconds. Special attention should be paid to the fingernails, between the fingers, and the wrists. Handsshould be rinsed thoroughly, and dried with a single use towel. Alcohol-based hand rubs are a good alternative for disinfecting hands if a sink is not available. Hand rubs should be spread over the entire surface of hands, fingers, and wrists until dry, and may be used several times. These rubs can be used repeatedly without skin irritation or loss of effectiveness. Hand rubs are available as a liquid or wipe in small, portable sizes that are easy to carry in a pocket or handbag. When a sink is available, visibly soiled hands should be washed with soap and water. Hands should be washed after coughing, blowing the nose or sneezing. While it is not always possible to limit contact with a person who is sick, avoiding touching the eyes, nose, or mouth after direct contact can help to prevent the spread of infection. In addition, tissues should be used to cover the mouth when sneezing or coughing. These used tissues should be disposed of promptly. Sneezing/coughing into the sleeve of one's clothing (at the inner elbow) is another means of containing sprays of saliva and secretions and has the advantage of not co ntaminating the hands. WHEN TO SEEK HELP - Parents of a child with throat pain and one or more of the following should contact their healthcare provider immediately: Difficulty swallowing or breathing Excessive drooling in an infant or young child Temperature ?101 F or 38.3 C Swelling of the neck Child is unable or unwilling to drink or eat Voice sounds muffled Child has a stiff neck or difficulty opening the mouth WHERE TO GET MORE INFORMATION - Your child's healthcare provider is the best source of information for questions and concerns related to your child's medical problem. This article will be updated as needed every four months on our web site ([email or web address]/patients). Information below was obtained from Up to date Last literature review version 19.2: February 2011 This topic last updated: May 25, 2010 documented in this encounterKindred Hospital [facility]05-20-2025 NoteHNO ID: [id number] Author: ?, ?, ? Service: ? Author Type: ? Type: Progress Notes Filed: 02/24/2025 11:18 Note Text: Sleep Study Check-In Documentation Date: February 24, 2025 Name: Addy Byrnes Comments: HST was returned in working order without all sleep questionnaires Patient was not reached. A voicemail was left with patient to call back to complete questionnaires. [facility] NoteHNO ID: [id number] Author: ?, ?, ? Service: ? Author Type: ? Type: Progress Notes Filed: 02/24/2025 11:18 Note Text: [facility] # [id number] , date shipped out 02-17-25 FED EX ONLY Tracking mailout: [id number] Tracking return: [id number]05-02-2025 Telephone encounter Note* Telephone Encounter - Judie Ribeiro LPN - 02/06/2025 3:47 PM EDT Read [facility] message. Judie Ribeiro LPN [facility]05-02-2025 Miscellaneous Notes* Telephone Encounter - Judie Ribeiro LPN - 02/06/2025 3:47 PM EDT Read [employer] message. Judie Ribeiro LPN * Telephone Encounter - Candida Mcfarlane LPN - 02/06/2025 9:50 AM EDT Pt. Notified of results via my chart. Will close after we see he has looked at results. Candida Mcfarlane LPN * Telephone Encounter - uGzman Vasquez DO - 02/06/2025 8:28 AM EDT Can let him know the results of the CT scan show all the small nodules are unchanged from last fall. A new one observed in October has resolved. No need for further up CT chest. Since the cancer was stage I, no need for follow-up here. He should have a colonoscopy a year following his colon cancer surgery by Dr. José or whoever performed his initial screening colonoscopy. Guzman Vasquez DO documented in this encounterKindred [facility]05-[facility]-2025 Telephone encounter Note * Telephone Encounter - Candida Mcfarlane LPN - 02/06/2025 9:50 AM EDT Pt. Notified of results via my chart. Will close after we see he has looked at results. Candida Mcfarlane LPN [facility]05-02-2025 Telephone encounter Note* Telephone Encounter - Guzman Vasquez DO - 02/06/2025 8:28 AM EDT Can let him know the results of the CT scan show all the small nodules are unchanged from last fall. A new one observed in October has resolved. No need for further up CT chest. Since the cancer was stage I, no need for follow-up here. He should have a colonoscopy a year following his colon cancer surgery by Dr. José or whoever performed his initial screening colonoscopy. Guzman Vasquez DO [facility]04-30-2025 History of Present illness Narrative* Mira Smyth RT(R) - 02/04/2025 8:20 AM EDT Radiology Service Progress Note PATIENT NAME: Addy Byrnes DATE OF SERVICE: February 04, 2025 TIME: 2:39 PM PATIENT IDENTITY VERIFICATION COMPLETED USING TWO (2) IDENTIFIERS: Name and Date of confirmedby patient verbally. FALL SCREENING: Has the patient had 2 falls in the last year or 1 fall with injury or currently using an Ambulatory Assistive Device (Walker, Cane, Wheelchair, Crutches, etc.)? No PATIENT GENDER DATA: Assigned male at PATIENT RELEVANT IMPLANT DATA REVIEWED: Yes PATIENT PRESENTS WITH AN IMPLANTABLE OR ATTACHED CARD SELLER: No RADIOLOGY DEPARTMENT: CT; Exam(s) Completed: Chest PERIPHERAL IV DATA: Not applicable SIGNED BY: RT Sage(R) February 04, 2025 2:39 PM documented in this encounterKindred Hospital [facility]04-30-2025 NoteHNO ID: [id number] Author: MIRA SMYTH RT(Adelita) Service: ? Author Type: Child Welfare Specialist Type: Progress Notes Filed: 02/04/2025 14:39 Note Text: Radiology Service Progress Note PATIENT NAME: Addy Byrnes DATE OF SERVICE: February 04, 2025 TIME: 2:39 PM PATIENT IDENTITY VERIFICATION COMPLETED USING TWO (2) IDENTIFIERS: Name and Date of confirmed by patient verbally. FALL SCREENING: Has the patient had 2 falls in the last year or 1 fall with injury or currently using an Ambulatory Assistive Device (Walker, Cane, Wheelchair, Crutches, etc.)? No PATIENT GENDER DATA: Assigned male at PATIENT RELEVANT IMPLANT DATA REVIEWED: Yes PATIENT PRESENTS WITH AN IMPLANTABLE OR ATTACHED CARD SELLER: No RADIOLOGY DEPARTMENT: CT; Exam(s) Completed: Chest PERIPHERAL IV DATA: Not applicable SIGNED BY: RT Sage(R) February 04, 2025 2:[address] [facility]04-17-2025 Instructions* Patient Instructions* Kameron Rios Jr., MD - 01/22/2025 9:55 AM EDT Your most recent body mass index (BMI) that we have on record is 26.69 kg/m2. Obstructive sleep apnea (DALE) worsens with an increase in weight; reduction in weight may improve or resolve your DALE. Ifyou are not already seeking treatment, there are resources available at the [facility] such as a nutrition consultation or referral to weight management programs at our [facility]. Please let us know if we can assist with a referral. documented in this encounter[facility]04-[facility]-2025 NoteHNO ID: [id number] Author: KAMERON RIOS JR, MD Service: ? Author Type: Physician Type: Progress Notes Filed: 01/22/2025 10:05 Note Text: NEW PATIENT (CONSULT) HISTORY AND PHYSICAL EXAM (Virtual Visit with Video) PRIMARY CARE PHYSICIAN: Ben Rodriguez APRN.KAIAKO KURA KAUPAPA MAORI REASON FOR CONSULT: DALE REFERRING PHYSICIAN: No ref. provider found CHIEF COMPLAINT: Headaches, prior dx of DALE For this virtual visit, the patient has been identified by name and (MRN and photo identification as well if available). Those taking part in visit: Patient and physician via Mouth [employer]. Consent for this visit received from patient. I have communicated my name and active licensure. The patient's identity and physical location ([place]) were verified at the time of this visit. The patient has been informed of the risks and benefits of -- and alternatives to -- treatment through a remote evaluation and consents to proceed with the evaluation remotely. HISTORY OF PRESENT ILLNESS: Addy Byrnes is a 54 year old male, with a PMH significant for that noted below. Presents for evaluation of DALE. Patient states biggest issues is headaches his entire life - migraines as a child. States lots of tightness in shoulder on L going into head. No longer gets them to the point that he has N/V. However, frequent HAs. States few years ago was assessed for DALE and told very severe and could not handle CPAP therapy - performed at [facility] and those records not available for review. Provides additional med history including DM diagnosis about a year ago along with colon ca. Currently going to bed about 10PM - 11PM. No issues falling asleep and no RLS symptoms. Waking maybe 2x per night. does report patient snores but not as much as he used to. No dry mouth during the night. Pt has lost about 20 pounds since time of last sleep study. Sometimes tired during the day and other times he is not. No naps. No falling asleep driving. PHQ 9 Data 01/20/2025 PHQ-9 All Questions Little interest or pleasure in doing things: 0 Feeling down, depressed, or hopeless: 0 Trouble falling or staying asleep, or sleeping too much 1 Feeling tired or having little energy 1 Poor appetite or overeating 0 Feeling bad about yourself - or that you are a failure or have let yourself or your family down 0 Trouble concentrating on things, such as reading the newspaper or watching television 1 Moving or speaking so slowly that other people could have noticed. Or the opposite - being so fidgety or restless that you have been moving around a lot more than usual 0 Thoughts that you would be better off , or of hurting yourself in some way 0 PHQ-9 Score 3 ADRY 7 Data important suggestion No data to display PROMIS-10 PROMIS Global Health - (T-Scores - the mean of general population = 50. Five points is a clinically meaningful difference.) Physical T-Score Mental T-Score 01/20/2025 42.3 53.3 [place] Sleepiness Scale Scores 01/20/2025 [place] Sleepiness Scale Score 5 When asked about headaches, states a former doctor gave a muscle relaxant that made him loopy. Also sees chiropractor and massage therapy. Headaches always on L side and follow the course of the greater occipital nerve. +Photophobia. Mother with migraines. States has a headache essentially daily. Neck pain chronic. Headache can be its worse in the AM. Pt's labs are through [facility] and not available for review at this time but per pt, renal and hepatic function normal. XR at chiropractor and has been told he has DISH disease. Therapy helps for about 30 minutes and then pain returns shortly after. Pt believes he has had CT brains in the past - no record of these for review. REVIEW OF SYSTEMS GENERAL:No weight loss, malaise or fevers. HEENT:No changes in hearing or vision, no nose bleeds or other nasal problems NECK:Negative for lumps, goiter, pain and significant neck swelling RESPIRATORY: Negative for cough, wheezing or shortness of breath. CARDIOVASCULAR: Negative for chest pain, leg swelling or palpitations. GASTROINTESTINAL: Negative for abdominal discomfort, blood in stools or black stools or change in bowel habits GENITOURINARY: No history of dysuria, frequency or incontinence MUSCULOSKELETAL: Negative for joint pain or swelling, back pain or muscle pain. NEUROLOGIC:Negative for focal numbness or weakness, and dizziness or syncope, vision changes, speech/language changes, changes in gait or falls -- besides those complaints as above in HPI. SKIN:Negative for lesions, rash, and itching. LAB/IMAGING: Reviewed and include: No results found for: WBC, RBC, HB, HCT, MCV, MCH, MCHC, RDWCV, PLT, MPV, GLUC, BUN, CREAT, NA, K, CHLOR, CO2, TPROT, ALB,CA, ALKPHOS, TBILI, AST, ALT, BENJAMIN, ESRMM, SSA, SSB, CRYO, CRYOQ, RF, AHBSQ, HEPCABEIA URINALYSIS No results found for: PH, SPGR, UGLUC, UBILI, (more content not included)...[facility]04-17-2025 History of Present illness Narrative* Kameron Rios Jr., MD - 01/22/2025 8:58 AM EDT NEW PATIENT (CONSULT) HISTORY AND PHYSICAL EXAM (Virtual Visit with Video) PRIMARY CARE PHYSICIAN: Ben Rodriguez APRN.KAIAKO KURA KAUPAPA MAORI REASON FOR CONSULT: DALE REFERRING PHYSICIAN: No ref. provider found CHIEF COMPLAINT: Headaches, prior dx of DALE For this virtual visit, the patient has been identified by name and (MRN and photo identification as well if available). Those taking part in visit: Patient and physician via Mouth Party. Consent for this visit received from patient. I have communicated my name and active licensure. The patient's identity and physical location ([place]) were verified at the time of this visit. The patient has been informed of the risks and benefits of -- and alternatives to -- treatment through a remote evaluation and consents to proceed with the e valuation remotely. HISTORY OF PRESENT ILLNESS: Addy Byrnes is a 54 year old male, with a PMH significant for thatnoted below. Presents for evaluation of DALE. Patient states biggest issues is headaches his entire life - migraines as a child. States lots of tightness in shoulder on L going into head. No longer gets them to the point that he has N/V. However, frequent HAs. States few years ago was assessed for OS A and told very severe and could not handle CPAP therapy - performed at [facility] and those records not available for review. Provides additional med history including DM diagnosis about a year ago along with colon ca. Currently going to bed about 10PM - 11PM. No issues falling asleep and no RLS symptoms. Waking maybe 2x per night. does report patient snores but not as much as he used to. No dry mouth during the night. Pt has lost about 20 pounds since time of last sleep study. Sometimes tired during the dayand other times he is not. No naps. No falling asleep driving. PHQ 9 Data 01/20/2025 PHQ-9 All Questions Little interest or pleasure in doing things: 0 Feeling down, depressed, or hopeless: 0 Trouble falling or staying asleep, or sleeping too much 1 Feeling tired or having little energy 1 Poor appetite or overeating 0 Feeling bad about yourself - or that you are a failure or have let yourself or your family down 0 Trouble concentrating on things, such as reading the newspaper or watching television 1 Moving or speaking so slowly that other people could have noticed. Or the opposite - being so fidgety or restless that you have been moving around a lot more than usual 0 Thoughts that you would be better off , or of hurting yourself in some way 0 PHQ-9 Score 3 ADRY 7 Data important suggestion No data to display PROMIS-10 PROMIS Global Health - (T-Scores - the mean of general population = 50. Five points is a clinicallymeaningful difference.) Physical T-Score Mental T-Score 01/20/2025 42.3 53.3 [place] Sleepiness Scale Scores 01/20/2025 [place] Sleepiness Scale Score 5 When asked about headaches, states a former doctor gave a muscle relaxant that made him loopy. [facility] chiropractor and massage therapy. Headaches always on L side and follow the course of the greater occipital nerve. +Photophobia. Mother with migraines. States has a headache essentially daily. Neck pain chronic. Headache can be its worse in the AM. Pt's labs are through [facility] and not available for review at this time but per pt, renal and hepatic function normal. XR at chiropractor and has been told he has DISH disease. Therapy helps for about 30 minutes and then pain returns shortly after. Pt believes he has had CT brains in the past - no record of these forreview. REVIEW OF SYSTEMS GENERAL:No weight loss, malaise or fevers. HEENT:No changes in hearing or vision, no nose bleeds or other nasal problems NECK:Negative for lumps, goiter, pain and significant neck swelling RESPIRATORY: Negative for cough, wheezing or shortness of breath. CARDIOVASCULAR: Negative for chest pain, leg swelling or palpitations. GASTROINTESTINAL: Negative for abdominal discomfort, blood in stools or black stools or change in bowel habits GENITOURINARY: No history of dysuria, frequency or incontinence MUSCULOSKELETAL: Negative for joint pain or swelling, back pain or muscle pain. NEUROLOGIC:Negative for focal numbness or weakness, and dizziness or syncope, vision changes, speech/language changes, changes in gait or falls -- besides those complaints as above in HPI. SKIN:Negative for lesions, rash, and itching. LAB/IMAGING: Reviewed and include: No results found for: WBC, RBC, HB, HCT, MCV, MCH, MCHC, RDWCV, PLT, MPV, GLUC, BUN, CREAT, NA, K, CHLOR, CO2, TPROT, ALB, CA, ALKPHOS, TBILI, AST, ALT, BENJAMIN, ESRMM, SSA, SSB, CRYO, CRYOQ, RF, AHBSQ, HEPCABEIA URINALYSIS No results found for: PH, SPGR, UGLUC, UBILI, UKET, UHB, UPROT, UROBIL, UWBC, SSA Requesting from PCPs office - pending. MEDICATIONS: acetaminophen (TYLENOL 8 HOUR) 650 mg CR tablet Take 650 mg by mouth every 8 hours as needed. ibuprofen (ADVIL) 200 mg tablet Take 200 mg by mouth every 6 hours as needed. lisinopril (ZESTRIL, PRINIVIL) 10 mg tablet Take 10 mg by mouth once daily. (Patient not taking: Reported on 07/04/2024) metFORMIN (GLUCOPHAGE) 500 mg tablet Take 500 mg by mouth twice daily. (Patient not taking: Reported on 07/04/2024) VALERIAN ROOT ORAL Take by mouth. (Patient not taking: Reported on 07/04/2024) benzonatate (TESSALON PERLES) 100 mg capsule Take 1 capsule by mouth three times daily as needed for cough. (Patient not taking: Reported on 07/04/2024) omeprazole (PRILOSEC) 20 mg capsule Take 20 mg by mouth as needed. codeine phos/acetaminophen(TYLENOL-CODEINE #3 300 MG-30 MG TAB) Take one(1) tablet every four(4) tosix(6) hours as needed for pain. (Patient not taking: No sig reported) multivitamins(DAILY VITAMIN TAB) Take one(1) tablet daily. (Patient not taking: Reported on 07/30/2022) COMPOUNDED PRESCRIPTION HOLY TEA, DRINK TWICE DAILY (Patient not taking: Reported on 07/30/2022) lorazepam(ATIVAN 1 MG TAB) Take two tabs 30min. prior to procedure (Patient not taking: No sig reported) HISTORIES PAST MEDICAL HISTORY Diagnosis Date Allergic rhinitis, cause unspecified Diabetes mellitus (HCC) Migraine without aura Urinary calculus, unspecified Renal stones FAMILY HISTORY Problem Relation Age of Onset Dementia Mother other (CHF) Father Colon Cancer Father Hypertension Brother Hypertension Brother No Known Problems Brother No Known Problems Brother No Known Problems Maternal Grandmother Heart Attack Paternal Grandfather SOCIAL HISTORY Social History Tobacco Use Smoking status: Never Smokeless tobacco: Never Vaping Use Vaping status: Never Used Substance Use Topics Alcohol use: No Drug use: No PHYSICAL EXAMINATION There were no vitals taken for this visit. GENERAL EXAM: General appearance: NAD, pleasant. HEENT: NC/AT, nasal congestion absent, can not eval OP due to quality of image. NECK: ROM nml. Lungs: No audible cough, wheeze, sob. NEUROLOGICAL EXAM: General: Awake, alert, oriented x3 (person,place,time), fluent, no dysarthria; comprehension, naming, repetition intact. CN: EOMI, Vfields grossly intact, hearing is intact to finger rub bilaterally, palate and tongue movements are intact and symmetric. SCM and trapezius strength symmetric. Motor: PIÑA equal and symmetric. Coordination: FNF, KARY intact. No tremors. Sensation: Light touch subjectively intact throughout. No evidence of neglect. Patient notes tenderness on palp of L greater occipital nerve at skull base. Assessment and Plan: ASSESSMENT/PLAN: 1. Intractable chronic migraine without aura and without status migrainosus - ICD9: 346.71, ICD10: G43.719 (primary diagnosis) 2. Spinal stenosis of cervical region - ICD9: 723.0, ICD10: M48.02 3. Cervicalgia - ICD9: 723.1, ICD10: M54.2 4. DISH (diffuse idiopathic skeletal hyperostosis) - ICD9: 721.6, ICD10: M48.10 5. Occipital neuralgia of left side - ICD9: 723.8, ICD10: M54.81 Patient with chronic headaches since childhood that appear to be of mixed nature including: migraine headaches with associated sensitivities such as photophobia; occipital neuralgia which in turn could exacerbate or be exacerbated by migraine; and cervicogenic headache which could also exacerbate occipital neuralgia and migraines. He has had distant head imaging since headaches that reportedly was unremarkable and exam is non focal. He has also had prior C spine imaging (not MRI) showing DISH and disc degeneration per pt and for which he is followed by chiropractor and for which therapy in the past has provided no relief. D/w pt in detail. Feel at this time, therapy by means of headache preventative meds is appropriate while also obtaining further workup of C spine pain which appears to be primary trigger for headaches at this time. Plan as follows: -For headaches and cervicalgia, start on gabapentin 300mg BID. SE and ADRs d/w pt. No reported renal disease but will get most recent CMP from PCP to confirm. -To evaluate C spine for possible significant stenosis, will obtain MRI C spine. Again, prior therapy without improvement of symptoms and XRs in past reportedly showing DISH. -Patient will follow up in 2-3 months for full in office exam including funduscopic examination. Further plan to be determined at that time depending on response to gabapentin. -D/w pt possible steroids in attempt to break headache cycle but DM, and uncertain at this time howelevated glucose is and not wanting to further exacerbate with steroids. 6. DALE (obstructive sleep apnea) - ICD9: 327.23, ICD10: G47.33 Prior diagnosis at outside office. Uncertain if still an issues at this time - may have previously been further exacerbating headaches, DM and HTN. Pt could not tolerate PAP in the past, but explained other treatment options if needed. Deutsch at this time is to determine if DALE still present and if so, how severe, as pt has had 25+ pound weight loss since that prior study with witnessed symptoms improving, including less snoring and pt not sleepy during day. To further evaluate, will get HSAT. Discussed with patient: the physiology of OSAS, medical conditions associated with OSAS (DM, HTN, CAD, Depression, Stroke, Headache...) and treatment options (UPPP, Dental appliances, CPAP...). Advised patient to avoid activities that could harm self or others when tired/sleepy, including driving and/or operating heavy machinery. Encouraged weight loss, and continued compliance with other medications. Kameron Rios MD I spent a total of 60+ minutes on the date of the service which included preparing to see the patient, [id number] patient care, completing clinical documentation, obtaining and/or reviewing separately obtained history, performing a medically appropriate examination, counseling and educating the pa tient/family/caregiver, and ordering medications, tests, or procedures. PDMP website checked and validated. All prescriptions have been APPROPRIATELY filled. No suspiciousactivity was identified. 01/22/2025 by Kameron Rios MD documented in this [facility]25 Telephone encounter Note * Telephone Encounter - Judie Ribeiro LPN - 11/28/2024 1:07 PM EST Contacted Ren, notified. Judie Ribeiro LPN [facility]02-21-2025 Miscellaneous Notes* Telephone Encounter - Judie Ribeiro LPN - 11/28/2024 1:07 PM EST Contacted Ren, notified. Judie Ribeiro LPN * Telephone Encounter - Guzman Vasquez DO - 11/28/2024 12:48 PM EST I'm supposing Dr. José asked him to hold it for surgery since that class of medications can delay gastric emptying and increase the chance of vomiting/aspiration with general anesthesia. So as far as I'm concerned there is no reason not to restart it. Guzman Vasquez DO * Telephone Encounter - Judie Ribeiro LPN - 11/28/2024 10:25 AM EST Ren with [facility] calling asking if ok with you if pt can restart Manjaro. Was told to stop prior to resection of colonic mass this past fall. OV here 07/04/24 A1C 9.1 Judie Ribeiro LPN Ren phone [phone] documented in this encounterKind[facility]02-[facility]-2025 Telephone encounter Note * Telephone Encounter - Guzman Vasquez DO - 11/28/2024 12:48 PM EST I'm supposing Dr. José asked him to hold it for surgery since that class of medications can delay gastric emptying and increase the chance of vomiting/aspiration with general anesthesia. So as far as I'm concerned there is no reason not to restart it. Guzman Vasquez DO [facility]02-21-2025 Telephone encounter Note* Telephone Encounter - Judie Ribeiro LPN - 11/28/2024 10:25 AM EST Ren with [facility] calling asking if ok with you if pt can restart Manjaro. Was told to stop prior to resection of colonic mass this past fall. OV here 07/04/24 A1C 9.1 Judie Ribeiro LPN Ren phone [phone] [facility]02-03-2025 Telephone encounter Note* Telephone Encounter - Keyanna Doe - 11/10/2024 8:46 AM EST Scheduled with patient [facility] Work Phone: 1(407) 420-746802-03-2025 Miscellaneous Notes* Telephone Encounter - Keyanna Doe - 11/10/2024 8:46 AM EST Scheduled with patient * Telephone Encounter - Judie Ribeiro LPN - 11/10/2024 8:13 AM EST Pt notified. Aware he will be called to get a CT scan scheduled. Please assist him in scheduling. Judie Ribeiro LPN * Telephone Encounter - Guzman Vasquez DO - 11/09/2024 2:25 PM EST Let him know the chest CT scan showed all the nodules were stable. The radiologist observed a new very small 3 mm nodule in the very top of the left lung. Does not appear that it was there before buthas a benign (inflammatory) appearance. Recommend 1 more 3-month follow-up CT chest. If stable thenno further imaging indicated. Guzman Vasquez DO documented in this encounterKind[facility]02-[facility]-2025 Telephone encounter Note * Telephone Encounter - Judie Ribeiro LPN - 11/10/2024 8:13 AM EST Pt notified. Aware he will be called to get a CT scan scheduled. Please assist him in scheduling. Judie Ribeiro LPN [facility]02-02-2025 Telephone encounter Note* Telephone Encounter - Guzman Vasquez DO - 11/09/2024 2:25 PM EST Let him know the chest CT scan showed all the nodules were stable. The radiologist observed a new very small 3 mm nodule in the very top of the left lung. Does not appear that it was there before buthas a benign (inflammatory) appearance. Recommend 1 more 3-month follow-up CT chest. If stable thenno further imaging indicated. Guzman Vasquez DO [facility]01-29-2025 History of Present illness Narrative* Mira Smyth, RT(R) - 11/05/2024 8:20 AM EST Radiology Service Progress Note PATIENT NAME: Addy Byrnes DATE OF SERVICE: November 05, 2024 TIME: 12:00 PM PATIENT IDENTITY VERIFICATION COMPLETED USING TWO (2) IDENTIFIERS: Name and Date of confirmedby patient verbally. FALL SCREENING: Has the patient had 2 falls in the last year or 1 fall with injury or currently using an Ambulatory Assistive Device (Walker, Cane, Wheelchair, Crutches, etc.)? No PATIENT GENDER DATA: Assigned male at PATIENT RELEVANT IMPLANT DATA REVIEWED: Yes PATIENT PRESENTS WITH AN IMPLANTABLE OR ATTACHED CARD SELLER: No RADIOLOGY DEPARTMENT: CT; Exam(s) Completed: Chest PERIPHERAL IV DATA: Not applicable SIGNED BY: RT Sage(Adelita) November 05, 2024 12:00 PM documented in this encounterKindred [facility]01-29-2025 NoteHNO ID: [id number] Author: MIRA SMYTH RT (R) Service: ? Author Type: Child Welfare Specialist Type: Progress Notes Filed: 11/05/2024 12:00 Note Text: Radiology Service Progress Note PATIENT NAME: Addy Byrnes DATE OF SERVICE: November 05, 2024 TIME: 12:00 PM PATIENT IDENTITY VERIFICATION COMPLETED USING TWO (2) IDENTIFIERS: Name and Date of confirmed by patient verbally. FALL SCREENING: Has the patient had 2 falls in the last year or 1 fall with injury or currently using an Ambulatory Assistive Device (Walker, Cane, Wheelchair, Crutches, etc.)? No PATIENT GENDER DATA: Assigned male at PATIENT RELEVANT IMPLANT DATA REVIEWED: Yes PATIENT PRESENTS WITH AN IMPLANTABLE OR ATTACHED CARD SELLER: No RADIOLOGY DEPARTMENT: CT; Exam(s) Completed: Chest PERIPHERAL IV DATA: Not applicable SIGNED BY: ÓSCAR Cazares) November 05, 2024 12:[address] [facility]10-29-2024 Telephone encounter Note* Telephone Encounter - Sofya Winter - 08/05/2024 9:17 AM EDT Spoke with patient and scheduled. Sofya Winter [facility]10-29-2024 Miscellaneous Notes* Telephone Encounter - Sofya Winter - 08/05/2024 9:17 AM EDT Spoke with patient and scheduled. Sofya Winter * Telephone Encounter - Candida Mcfarlane LPN - 08/05/2024 8:17 AM EDT Spoke with pt. Concerning recent CT results, Dr. Vasquez recommends repeat CT chest in 2 to 3 months.Can be done without IV contrast. Instructed our PSS will reach out to him to get scan scheduled. Pt. Voiced understanding. Dr. Vasquez please sign pended order PSS please reach out to pt. For scheduling. Candida Mcfarlane LPN Message also sent to pt. Via my chart. * Telephone Encounter - Guzman Vasquez DO - 08/04/2024 5:[address] of the chest demonstrated a few small nodules scattered throughout the lungs. Statistically these are very likely to be benign given where the tumor was located in the colon and that it was a stage I tumor. However, to assure stability, recommend repeat CT chest in 2 to 3 months. Can be donewithout IV contrast. Please pend order. The MRI demonstrated benign findings in the liver. Spleen was interpreted as being slightly enlarged but the CT scan he had of the abdomen pelvis at [facility] which is a more accurate way of measuring the spleen shows to be normal size. Guzman Vasquez DO * Telephone Encounter - Keyanna Doe - 08/01/2024 9:29 AM EDT Patient requesting results from 07/[address] documented in this encounterKind[facility]10-29-2024 Telephone encounter Note * Telephone Encounter - Candida Mcfarlane LPN - 08/05/2024 8:17 AM EDT Spoke with pt. Concerning recent CT results, Dr. Vasquez recommends repeat CT chest in 2 to 3 months.Can be done without IV contrast. Instructed our PSS will reach out to him to get scan scheduled. Pt. Voiced understanding. Dr. Vasquez please sign pended order PSS please reach out to pt. For scheduling. Candida Mcfarlane LPN Message also sent to pt. Via my chart. [facility]10-28-2024 Telephone encounter Note* Telephone Encounter - Guzman Vasquez DO - 08/04/2024 5:[address] of the chest demonstrated a few small nodules scattered throughout the lungs. Statistically these are very likely to be benign given where the tumor was located in the colon and that it was a stage I tumor. However, to assure stability, recommend repeat CT chest in 2 to 3 months. Can be donewithout IV contrast. Please pend order. The MRI demonstrated benign findings in the liver. Spleen was interpreted as being slightly enlarged but the CT scan he had of the abdomen pelvis at [facility] which is a more accurate way of measuring the spleen shows to be normal size. Guzman Vasquez DO [facility]10-25-2024 Telephone encounter Note* Telephone Encounter - Keyanna Doe - 08/01/2024 9:29 AM EDT Patient requesting results from 07/[address] [facility] Work Phone: [phone] 729-604310-11-2024 History of Present illness Narrative* Rosaura Hutchinson, RT(R) - 07/18/2024 10:40 AM EDT Radiology Service Progress Note DATE OF SERVICE: July 18, 2024 TIME: 11:18 AM PATIENT IDENTITY VERIFICATION COMPLETED USING TWO (2) STANDARD IDENTIFIERS: Name and Date of confirmed by patient verbally. FALL SCREENING: Has the patient had 2 falls in the last year or 1 fall with injury or currently using an Ambulatory Assistive Device (Walker, Cane, Wheelchair, Crutches, etc.)? No PATIENT GENDER DATA: Male PATIENT RELEVANT IMPLANT DATA REVIEWED: Yes PATIENT PRESENTS WITH AN IMPLANTABLE OR ATTACHED CARD SELLER: No ALLERGIES: Reviewed and unchanged CONTRAST ALLERGY: NO. EXAM: MRI - CONTRAST TYPE: GROUP II PERIPHERAL IV DATA: Ambulatory: A peripheral IV was started in the Left upper extremity with a Angio cath: 22 gauge. RADIOLOGY DEPARTMENT: MR; Exam(s) Completed: Body: Liver (routine) SIGNATURE: RT Natasha(Adelita) PATIENT NAME: Addy Byrnes DATE: July 18, 2024 TIME: 11:18 AM documented in this encounterKind[facility]-2024 NoteHNO ID: [id number] Author: ROSAURA HUTCHINSON RT (R) Service: ? Author Type: Technologist Type: Progress Notes Filed: 07/18/2024 11:19 Note Text: Radiology Service Progress Note DATE OF SERVICE: July 18, 2024 TIME: 11:18 AM PATIENT IDENTITY VERIFICATION COMPLETED USING TWO (2) STANDARD IDENTIFIERS: Name and Date of confirmed by patient verbally. FALL SCREENING: Has the patient had 2 falls in the last year or 1 fall with injury or currently using an Ambulatory Assistive Device (Walker, Cane, Wheelchair, Crutches, etc.)? No PATIENT GENDER DATA: Male PATIENT RELEVANT IMPLANT DATA REVIEWED: Yes PATIENT PRESENTS WITH AN IMPLANTABLE OR ATTACHED CARD SELLER: No ALLERGIES: Reviewed and unchanged CONTRAST ALLERGY: NO. EXAM: MRI - CONTRAST TYPE: GROUP II PERIPHERAL IV DATA: Ambulatory: A peripheral IV was started in the Left upper extremity with a Angio cath: 22 gauge. RADIOLOGY DEPARTMENT: MR; Exam(s) Completed: Body: Liver (routine) SIGNATURE: RT Natasha(Adelita) PATIENT NAME: Addy Byrnes DATE: July 18, 2024 TIME: 11:18 [facility]10-11-2024 History of Present illness Narrative* Mira Smyth RT(R) - 07/18/2024 10:20 AM EDT Radiology Service Progress Note PATIENT NAME: Addy Byrnes DATE OF SERVICE: July 18, 2024 TIME: 1:20 PM PATIENT IDENTITY VERIFICATION COMPLETED USING TWO (2) IDENTIFIERS: Name and Date of confirmedby patient verbally. FALL SCREENING: Has the patient had 2 falls in the last year or 1 fall with injury or currently using an Ambulatory Assistive Device (Walker, Cane, Wheelchair, Crutches, etc.)? No PATIENT GENDER DATA: Male PATIENT RELEVANT IMPLANT DATA REVIEWED: Yes PATIENT PRESENTS WITH AN IMPLANTABLE OR ATTACHED CARD SELLER: No RADIOLOGY DEPARTMENT: CT; Exam(s) Completed: Chest PERIPHERAL IV DATA: Not applicable SIGNED BY: RT Sage(Adelita) July 18, 2024 1:20 PM documented in this encounterKind[facility]10-11-2024 NoteHNO ID: [id number] Author: MIRA SMYTH RT(Adelita) Service: ? Author Type: Child Welfare Specialist Type: Progress Notes Filed: 07/18/2024 13:20 Note Text: Radiology Service Progress Note PATIENT NAME: Addy Byrnes DATE OF SERVICE: July 18, 2024 TIME: 1:20 PM PATIENT IDENTITY VERIFICATION COMPLETED USING TWO (2) IDENTIFIERS: Name and Date of confirmed by patient verbally. FALL SCREENING: Has the patient had 2 falls in the last year or 1 fall with injury or currently using an Ambulatory Assistive Device (Walker, Cane, Wheelchair, Crutches, etc.)? No PATIENT GENDER DATA: Male PATIENT RELEVANT IMPLANT DATA REVIEWED: Yes PATIENT PRESENTS WITH AN IMPLANTABLE OR ATTACHED CARD SELLER: No RADIOLOGY DEPARTMENT: CT; Exam(s) Completed: Chest PERIPHERAL IV DATA: Not applicable SIGNED BY: RT Sage(Adelita) July 18, 2024 1:[address] [facility]09-27-2024 Note* Addendum Note - Guzman Vasquez DO - 07/04/2024 10:20 AM EDTAddended by: GUMZAN VASQUEZ on: 07/04/2024 10:20 AM Modules accepted: Orders [facility]09-27-2024 Miscellaneous Notes* Addendum Note - Guzman Vasquez DO - 07/04/2024 10:20 AM EDTAddended by: GUZMAN VASQUEZ on: 07/04/2024 10:20 AM Modules accepted: Orders * Addendum Note - Brittny Carrillo LPN - 07/04/2024 10:05 AM EDTAddended by: BRITTNY CARRILLO on: 07/04/2024 10:05 AM Modules accepted: Orders documented in this encounterKind[facility]09-27-2024 Note* Addendum Note - Brittny Carrillo LPN - 07/04/2024 10:05 AM EDTAddended by: BRITTNY CARRILLO on: 07/04/2024 10:05 AM Modules accepted: Orders [facility]09-27-2024 History of Present illness Narrative* Guzman Vasquez DO - 07/04/2024 9:00 AM EDT Patient referred by Dr. Lamont José for colon cancer. HPI: The patient is a 53 yo male with a PMH significant for DM2, DALE (CPAP), HTN, hiatal hernia, reflux and back pain. Underwent initial screening colonoscopy 06/03/2024. The patient was found to have 1 medium polyp in the distal transverse colon removed with hot snare resected and retrieved. There was also a likely malignant appearing tumor in the distal transverse colon which was biopsied. Clip was placed. Examination was otherwise normal. Underwent laparoscopic transverse and left hemicolectomy with takedown of splenic flexure on 06/23/2024. Final pathology demonstrated the tumor in the splenic flexure measuring 4.0 x 3.5 x 2.0 cm. No macroscopic tumor perforation was noted. Adenocarcinoma. Grade 2 (moderately differentiated). Tumor invaded into the muscularis propria. All margins were uninvolved. No lymphovascular invasion identified.No perineural invasion identified. No tumor deposits noted. 10 of 10 lymph nodes were negative for metastatic carcinoma. PAST MEDICAL HISTORY Diagnosis Date Allergic rhinitis, cause unspecified Migraine without aura Urinary calculus, unspecified Renal stones PAST SURGICAL HISTORY Procedure Laterality Date SEPTOPLASTY/SUBMUCOUS RESECJ W/WO CARTILAGE GRF Septoplasty VASECTOMY UNI/BI SPX W/POSTOP SEMEN EXAMS 11/27/08 lisinopril (ZESTRIL, PRINIVIL) 10 mg tablet Take 10 mg by mouth once daily. metFORMIN (GLUCOPHAGE) 500 mg tablet Take 500 mg by mouth twice daily. VALERIAN ROOT ORAL Take by mouth. benzonatate (TESSALON PERLES) 100 mg capsule Take 1 capsule by mouth three times daily as needed for cough. omeprazole (PRILOSEC) 20 mg capsule Take 20 mg by mouth once daily. codeine phos/acetaminophen(TYLENOL-CODEINE #3 300 MG-30 MG TAB) Take one(1) tablet every four(4) tosix(6) hours as needed for pain. (Patient not taking: No sig reported) multivitamins(DAILY VITAMIN TAB) Take one(1) tablet daily. (Patient not taking: Reported on 07/30/2022) COMPOUNDED PRESCRIPTION HOLY TEA, DRINK TWICE DAILY (Patient not taking: Reported on 07/30/2022) lorazepam(ATIVAN 1 MG TAB) Take two tabs 30min. prior to procedure (Patient not taking: No sig reported) ALLERGIES No Known Allergies Social History Tobacco Use Smoking status: Never Smokeless tobacco: Never Substance Use Topics Alcohol use: No Drug use: No Family history: Father had stage IIIC colon cancer ~age 69. No other family h/o cancer. REVIEW OF SYSTEMS: Constitutional: No episodes of fever and night sweats. Not significantly fatigued. Normal appetite. Neuro: No STYLES, vertigo, dizziness and imbalance. No symptoms of neuropathy. HEENT: No recent change in voice, vision or hearing. Resp: No cough, wheeze and hemoptysis. No shortness of breath at rest. No ROCHA. CVS: No exertional chest pain, PND, orthopnea and LE edema. GI: See above. : No dysuria or gross hematuria. No symptoms of bladder outlet obstruction. Endo: No hot flashes. No polyuria and polydipsia. No heat and cold intolerance. Musculoskeletal: No bone, back, joint and muscular pain. Derm: No current rash. No history of jaundice or diffuse pruritis. Heme: No unusual bleeding and unexplained bruising. Psych: Normal mood. PHYSICAL EXAM: Vitals: Blood pressure 115/75, pulse 90, temperature 36.9 C (98.5 F), temperature source Temporal, height 162.6 cm (5' 4), weight 70.5 kg (155 lb 8 oz), SpO2 99%. Well-appearing and in no acute distress. EYES: Sclerae are anicteric bilaterally. LYMPHATIC: There is no palpable adenopathy. RESPIRATORY: Inspiratory breath sounds are of normal intensity in all freitas. No rales, wheezes or rhonchi. CARDIOVASCULAR: Rhythm is regular. No murmur. ABDOMEN: The abdomen is nondistended. No splenomegaly or hepatomegaly. No tenderness. Extremities: No swelling or edema. SKIN: No jaundice. NEUROLOGIC: senior report developer II-XII are grossly intact. No focal motor weakness. DTRs are symmetric and normal. MUSCULOSKELETAL: No joint swelling or tenderness. No muscle wasting. IMAGING: CT A/P 06/04/2024: There was not intraluminal solid mass within the colon the level of splenic flexure measuring approximately 2.7 x 2.5 cm in axial dimension and 3.7 cm in superior to inferior dimension. No evidence of obstruction. It was characterized by moderate contrast-enhancement and a lobulated contour. No other large or small bowel masses noted. There were several small nonpathologic lymph nodes present within the transverse mesocolon measuring approximately 4 mm. No evidence of RP adenopathy. No definitive mass in the liver. There was a subtle area of increased contrast-enhancement within the right hepatic lobe, segment 8 measuring approximately 9.3 mm in size. Additional enhancing nodule within the i nferior aspect of the right hepatic lobe measuring 12.2 x 13.9 cm in segment 7. The remaining portion of the liver appeared normal. There were no masses involving the adrenal glands. On the lower chest images the lung bases were noted to be clear. Genetic testing: Not performed. NGS/biomarkers/taxi driver mutation analyses: pMMR. 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 -CT images reviewed. Not able to discern the abnormalities in the liver. Unlikely to be malignant but we discussed obtaining MRI liver and CT chest for the sake of completeness. -If imaging okay then no further surveillance imaging indicated. -Answered his and his family's questions to their satisfaction. Plan: -Genetic testing. -CT chest wo contrast. -MRI liver. -Colonoscopy in a year. -Path results from colonoscopy. -Will see if had baseline CEA. I spent a total of 75 minutes on the date of the service which included preparing to see the patient, [id number] patient care, completing clinical documentation, obtaining and/or reviewing separately obtained history, performing a medically appropriate examination, counseling and educating the pat ient/family/caregiver, ordering medications, tests, or procedures, communicating with other HCPs (not separately reported), and communicating results to the patient/family/caregiver. Guzman Vasquez DO documented in this encounterKind[facility]09-27-2024 NoteHNO ID: [id number] Author: GUZMAN VASQUEZ DO Service: ? Author Type: Physician Type: Progress Notes Filed: 08/04/2024 16:59 Note Text: Patient referred by Dr. Lamont José for colon cancer. HPI: The patient is a 53 yo male with a PMH significant for DM2, DALE (CPAP), HTN, hiatal hernia, reflux and back pain. Underwent initial screening colonoscopy 06/03/2024. The patient was found to have 1 medium polyp in the distal transverse colon removed with hot snare resected and retrieved. There was also a likely malignant appearing tumor in the distal transverse colon which was biopsied. Clip was placed. Examination was otherwise normal. Underwent laparoscopic transverse and left hemicolectomy with takedown of splenic flexure on 06/23/2024. Final pathology demonstrated the tumor in the splenic flexure measuring 4.0 x 3.5 x 2.0 cm. No macroscopic tumor perforation was noted. Adenocarcinoma. Grade 2 (moderately differentiated). Tumor invaded into the muscularis propria. All margins were uninvolved. No lymphovascular invasion identified. No perineural invasion identified. No tumor deposits noted. 10 of 10 lymph nodes were negative for metastatic carcinoma. PAST MEDICAL HISTORY Diagnosis Date Allergic rhinitis, cause unspecified Migraine without aura Urinary calculus, unspecified Renal stones PAST SURGICAL HISTORY Procedure Laterality Date SEPTOPLASTY/SUBMUCOUS RESECJ W/WO CARTILAGE GRF Septoplasty VASECTOMY UNI/BI SPX W/POSTOP SEMEN EXAMS 11/27/08 lisinopril (ZESTRIL, PRINIVIL) 10 mg tablet Take 10 mg by mouth once daily. metFORMIN (GLUCOPHAGE) 500 mg tablet Take 500 mg by mouth twice daily. VALERIAN ROOT ORAL Take by mouth. benzonatate (TESSALON PERLES) 100 mg capsule Take 1 capsule by mouth three times daily as needed for cough. omeprazole (PRILOSEC) 20 mg capsule Take 20 mg by mouth once daily. codeine phos/acetaminophen(TYLENOL-CODEINE #3 300 MG-30 MG TAB) Take one(1) tablet every four(4) to six(6) hours as needed for pain. (Patient not taking: No sig reported) multivitamins(DAILY VITAMIN TAB) Take one(1) tablet daily. (Patient not taking: Reported on 07/30/2022) COMPOUNDED PRESCRIPTION HOLY TEA, DRINK TWICE DAILY (Patient not taking: Reported on 07/30/2022) lorazepam(ATIVAN 1 MG TAB) Take two tabs 30min. prior to procedure (Patient not taking: No sig reported) ALLERGIES No Known Allergies Social History Tobacco Use Smoking status: Never Smokeless tobacco: Never Substance Use Topics Alcohol use: No Drug use: No Family history: Father had stage IIIC colon cancer ~age 69. No other family h/o cancer. REVIEW OF SYSTEMS: Constitutional: No episodes of fever and night sweats. Not significantly fatigued. Normal appetite. Neuro: No STYLES, vertigo, dizziness and imbalance. No symptoms of neuropathy. HEENT: No recent change in voice, vision or hearing. Resp: No cough, wheeze and hemoptysis. No shortness of breath at rest. No ROCHA. CVS: No exertional chest pain, PND, orthopnea and LE edema. GI: See above. : No dysuria or gross hematuria. No symptoms of bladder outlet obstruction. Endo: No hot flashes. No polyuria and polydipsia. No heat and cold intolerance. Musculoskeletal: No bone, back, joint and muscular pain. Derm: No current rash. No history of jaundice or diffuse pruritis. Heme: No unusual bleeding and unexplained bruising. Psych: Normal mood. PHYSICAL EXAM: Vitals: Blood pressure 115/75, pulse 90, temperature 36.9 ?C (98.5 ?F), temperature source Temporal, height 162.6 cm (5' 4), weight 70.5 kg (155 lb 8 oz), SpO2 99%. Well-appearing and in no acute distress. EYES: Sclerae are anicteric bilaterally. LYMPHATIC: There is no palpable adenopathy. RESPIRATORY: Inspiratory breath sounds are of normal intensity in all freitas. No rales, wheezes or rhonchi. CARDIOVASCULAR: Rhythm is regular. No murmur. ABDOMEN: The abdomen is nondistended. No splenomegaly or hepatomegaly. No tenderness. Extremities: No swelling or edema. SKIN: No jaundice. NEUROLOGIC: senior report developer II-XII are grossly intact. No focal motor weakness. DTRs are symmetric and normal. MUSCULOSKELETAL: No joint swelling or tenderness. No muscle wasting. IMAGING: CT A/P 06/04/2024: There was not intraluminal solid mass within the colon the level of splenic flexure measuring approximately 2.7 x 2.5 cm in axial dimension and 3.7 cm in superior to inferior dimension. No evidence of obstruction. It was characterized by moderate contrast-enhancement and a lobulated contour. No other large or small bowel masses noted. There were several small nonpathologic lymph nodes present within the transverse mesocolon measuring approximately 4 mm. No evidence of RP adenopathy. No definitive mass in the liver. There was a subtle area of increased contrast-enhancement within the right hepatic lobe, segment 8 measuring approximately 9.3 mm in size. Additional enhancing nodule within the (more content not included)...[facility]09-21-2024 [facility] Medical Records Department [address] [place] [address] Discharge Summary 06/28/24 1112 MR#: [id number] Acct: [id number] Name: ADDY BYRNES Rep #: [id number] : 1970 53 From: Joe Leonard MD PCP: Deidre Schrader NP-C Status:DIS IN Location: MS3 [id number] Providers Date of Admission: 06/23/24 Date of Discharge: 06/28/24 Primary Care Physician: Deidre Schrader NP-C Reason For Visit: ERAS, Laparoscopic, Osmin Colectomy Diagnosis Discharge Diagnosis (1) Colonic mass: Status: Acute Code(s): K63.89 - Other specified diseases of intestine Plan Patient is a 53-year-old male status post colon resection for a colon mass. Patient is doing well following surgery. I offered patient the option of discharge today however he states that he would prefer to have a normal bowel movement without blood prior to going home. I am certainly amenable to this conservative approach. I will check back with him later today to see if any bowel movements have occurred. Otherwise would likely consider discharge tomorrow Would recommend continued diet advancement. Encourage ambulation. Medications at Discharge Home Medications propranolol 10 mg tablet 10 mg PO QHS MIGRAINES #30 tabs 03/17/24 tirzepatide 2.5 mg/0.5 mL subcutaneous pen injector (Mounjaro) 2.5 mg subcut TU WEIGHT LOSS 05/28/24 acetaminophen 325 mg capsule (Tylenol) 650 mg PO Q4H PRN pain 06/18/24 ondansetron 4 mg disintegrating tablet 4 mg PO Q8H PRN nausea and vomiting 3 days #10 tabs 06/28/24 Hospital Course Operations - (Hemicolectomy for colon mass) Summary of Care Provided Minutes Spent on Discharge: 20 Hospital Course: The patient is a 53-year-old male who recently was found to have a colonic mass on screening colonoscopy. Patient was admitted for an elective colon resection by Dr. José. Surgery was successfully performed. Patient had a fairly unremarkable postoperative course. Pain was well- controlled and diet was advanced. He did have a couple initial bowel movements that contained blood however his hemoglobin remained very stable. The blood with stool seems to be resolving. Patient has been up and ambulating and is interested in discharge to home today Physical Exam Const alert, oriented x3 and no apparent distress General Appearance: cooperative and comfortable Orientation / Consciousness: awake and oriented to person HEENT normocephalic Eyes PERRL GI GI Narrative: Abdomen is soft, nondistended. Very mild incisional tenderness to palpation. Incision is intact with Steri-Strips in place. No signs of erythema or infection. There is slight bruising to the area as would be expected Weight / BMI Weight Weight: 158 lb 12.783 oz Body Mass Index (BMI) 28.1 ABG / Lab / Microbiology Data 06/27/24 06:17 06/27/24 06:17 D/C Instructions Discharge Diet: Light diet - advance as tolerated Discharge Activity: Return to Normal Activity, May Drive and May Shower Lifting Restricted to (Lbs): 20 Lifting Restrictions: No lifting more than 20 pounds for 6 weeks Call your doctor if your incision/area has: Continuous Slow Oozing, Sudden Increased Bleeding, Increased Pain/ Swelling, Increased Redness and Foul Smelling Discharge Call your doctor if you observe: Fever of 101 or Higher, Change in Color and Uncontrolled pain Change Dressing in: 1 week Cleanse incision/area with: Soap Water Please Follow Up With: Lamont José MD When: In 1 to 2 weeks Meaningful Use Info Meaningful Use Meaningful Use Diagnoses (Choose all that apply): None applicable Ischemic Stroke Statin Dosing Therapy Reference: STATIN DOSE THERAPY REFERENCE: * Patients > 75 years receive moderate or high dose statin therapy. * Patients 75 years or YOUNGER should receive HIGH intensity statin dose unless contraindicated. You will be required to document reason for non-treatment if statin daily dose does not meet guidelines. HIGH DOSE STATIN THERAPY DAILY Atorvastatin > than or = to 40 mg Rosuvastatin > than or = to 20 mg Amlodipine + Atorvastatin > than or = to 2.5/40 mg Ezetimibe + Simvastatin 10/80 mg Simvastatin 80mg Discharge Plan Admission Admit Date/Time: 06/23/24 13:16 Primary Reason for Your Visit: Colon resection Attending Provider: Lamont José Primary Care Provider: Deidre Schrader NP Discharge Orders/Prescriptions Prescriptions: New ondansetron 4 mg tablet,disintegrating 4 mg PO Q8H PRN (Reason: nausea and vomiting) 3 Days Qty: 10 0RF Continued propranolol 10 mg tablet 10 mg PO QHS Qty: 30 5RF Mounjaro 2.5 mg/0.5 mL pen injector 2.5 mg subcut TU acetaminophen [Tylenol] 325 mg capsule 650 mg PO Q4H PRN (Reason: pain) Referrals / Follow Up: Deidre Schrader NP, [employer] 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 [Primary Care Provider] - D (more content not included)...[place] [id number] [facility] Medical Records Department [address] [place] [address] History Physical Exam 06/23/24 0932 MR#: [id number] Acct: [id number] Name: ADDY BYRNES Rep #: [id number] : 1970 53 From: Lamont José MD PCP: ROLAND HenleyC Status:ADM IN Location: [place] [address] History and Physical Date of Admission: 06/23/24 Intake Vital Signs 06/03/2407:11 06/11/2412:51 Height 5 ft 3 in 5 ft 3 in Weight: 162 lb BMI 28.7 BP 145/85 H Blood Pressure Location Rt brachial Position Sitting Respiration 18 Pulse 97 Pulse Source Monitor Temp 97.5 F L Temp Source Temporal Pulse Oximetry (%) 100 Oxygen Delivery Method room air Intake Visit Reasons: DISCUSS MASS FOUND ON SCOPE Chief Complaint: discuss mass found on scope Accompanied by: Is patient in pain?: No Allergies Environmental Allergies: Uncoded (seasonal) Allergy (Verified 06/11/24 12:52) PT UNABLE TO RESPOND-NEEDS F/U Medications ???Medication ???Instructions ???Recorded ???Confirmed ???Type propranolol 10 mg tablet 10 mg PO QHS #30 tabs 03/17/24 06/11/24 Rx ashwagandha extract 500 mg capsule 500 mg PO DAILY 04/14/24 06/11/24 History berberine chloride 500 mg capsule 500 mg PO BID 04/14/24 06/11/24 History cholecalciferol (vitamin D3) 50 50 mcg PO DAILY 04/14/24 06/11/24 History mcg (2,000 unit) capsule omega-3 fatty acids 1,250 mg 1,250 mg PO DAILY 04/14/24 06/11/24 History capsule tirzepatide 2.5 mg/0.5 mL 2.5 mg subcut TU 05/28/24 06/11/24 History subcutaneous pen injector (Mounjaro) Have you fallen in the past year?: No PFSH Medical History Colonic mass Wears glasses Arthritis Restless legs Back pain Migraine headache Dietary restriction History of hiatal hernia Gastric reflux CPAP (continuous positive airway pressure) dependence History of deviated nasal septum DMII (diabetes mellitus, type 2) HTN (hypertension) Family history of colon cancer in father Family History Father CVA (cerebral vascular accident) Colon cancer Hypertension Heart disease Social History household members: spouse current occupational status: employed Smoking Status: Never smoker Electronic Cigarette Use: not used second hand exposure: No alcohol intake: never substance use type: does not use HPI HPI HPI: Colon mass was foundPatient is a 53-year-old male here for colon mass. screening colonoscopy and it is at the splenic flexure. Exam Const General: cooperative Orientation: alert and oriented x3 HENMT Head: normal to inspection Neck Neck: normal visual inspection and full ROM Chest Chest palpation inspection: normal inspection of the chest Resp Effort Inspection: normal respiratory effort Auscultation: clear to auscultation bilaterally Cardio Rate: regular rate Rhythm: regular rhythm GI Inspection: non-distended Palpation: soft and nontender Skin General: no rashes or lesions noted Neuro General: patient alert and patient oriented x3 Extrem General: full ROM Psych Appearance: grossly normal Mental Status: mental status grossly normal Assessment and Plan Assessment and Plan (1) Colonic mass: Status: Acute Plan: Patient has a colonic mass at the splenic flexure. I discussed laparoscopic hemicolectomy with him. I discussed resecting the cancer as well as anastomosis. I discussed possibly having to convert to open surgery. I also discussed the risks of the case such as bleeding, infection, injury other organ such as the pancreas or stomach or small bowel. Patient understands all the risks and is willing to proceed. I discussed his bowel prep with him. Patient understands all the risks and is willing to proceed. I did perform a CT scan that did not show any metastatic disease. Lamont José MD Pager: [facility] [address] [place] [address], [address] [place] [address] Office: I have examined the patient and the H P has been reviewed. There are no clinical changes since date of exam. 06/23/24 0932 Cosigner Signature (if applicable): CC: VARSHA Schrader; Dr. Lamont José MD [facility]ignedWMercy [facility]10-23-[facility]22 Instructions* Patient Instructions* Sadiq Villalobos APRN.CNP - 07/30/2022 3:23 PM EDT ACUTE BRONCHITIS: You have acute bronchitis. This means the airway passages in your lungs are inflamed. Bronchitis may be caused by viruses or bacteria. Inhaling cigarette smoke will always make it worse. Exposure to irritating chemicals or second hand smoke as well as allergies can contribute to bronchitis. Repeat episodes of bronchitis may cause lifelong lung problems. Acute bronchitis is usually treated with rest, fluids, cough medicine, and possibly antibiotics or inhaled medicine to open up the small airways. It is very important that you avoid smoke and drink increased amounts of fluids. A cool air vaporizer can help thin bronchial secretions. This makes it easier to cough and clear your chest. If you are a cigarette smoker, consider using nicotine gum or skin patches to help you withdraw. Recovery from bronchitis is often slow, but you should start feeling better after 2-3 days of treatment. Please call your doctor or return here if you have any of the following symptoms: Increased fever, chills, or chest pain. Severe shortness of breath or bloody sputum. Do not improve after 3 days of proper treatment. documented in this encounter[facility]22 History of Present illness Narrative* Sadiq Villalobos APRN.CHERIE - 07/30/2022 3:05 PM EDT Subjective HPI Nontoxic-appearing male presents urgent care chief plaint cough chest congestion. Duration of symptom 8 days. Associated symptoms cough chest congestion sinus pressure sore throat fatigue. States sore throat has improved. Headache has improved as well. Most bothersome symptom today is sinus drainage cough fatigue. No known sick contacts. 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 Denies any OTC medications used today. Did use OTC medications past this did help. Denies any fever body aches chills productive cough chest pain shortness of breath pleuritic pain hemoptysis nausea vomiting abdominal pain change in bowel or bladder habits. Past medical history prescription medication use and allergies reviewed. .Patient presents with: Cough: Chest congestion, SOB x1 week PAST MEDICAL HISTORY Diagnosis Date Allergic rhinitis, cause unspecified Migraine without aura Urinary calculus, unspecified Renal stones PAST SURGICAL HISTORY Procedure Laterality Date SEPTOPLASTY/SUBMUCOUS RESECJ W/WO CARTILAGE GRF Septoplasty VASECTOMY UNI/BI SPX W/POSTOP SEMEN EXAMS 11/27/08 ALLERGIES Patient has no known allergies. MEDICATIONS lisinopril (ZESTRIL, PRINIVIL) 10 mg tablet Take 10 mg by mouth once daily. metFORMIN (GLUCOPHAGE) 500 mg tablet Take 500 mg by mouth twice daily. VALERIAN ROOT ORAL Take by mouth. omeprazole (PRILOSEC) 20 mg capsule Take 20 mg by mouth once daily. codeine phos/acetaminophen(TYLENOL-CODEINE #3 300 MG-30 MG TAB) Take one(1) tablet every four(4) tosix(6) hours as needed for pain. (Patient not taking: No sig reported) multivitamins(DAILY VITAMIN TAB) Take one(1) tablet daily. (Patient not taking: Reported on 07/30/2022) COMPOUNDED PRESCRIPTION HOLY TEA, DRINK TWICE DAILY (Patient not taking: Reported on 07/30/2022) lorazepam(ATIVAN 1 MG TAB) Take two tabs 30min. prior to procedure (Patient not taking: No sig reported) History reviewed. No pertinent family history. Social History Tobacco Use Smoking status: Never Smokeless tobacco: Never Substance Use Topics Alcohol use: No Drug use: No BP 136/94 Pulse 102 Temp 36.7 C (98.1 F) Resp 18 Wt 80 kg (176 lb 6.4 oz) SpO2 97% Hr 92 Review of Systems Constitutional: Positive for malaise/fatigue. Negative for chills and fever. HENT: Positive for congestion and sore throat. Negative for ear discharge, ear pain and sinus pain. Eyes: Negative for blurred vision, pain, discharge and redness. Respiratory: Positive for cough. Negative for hemoptysis, sputum production, shortness of breath, wheezing and stridor. Cardiovascular: Negative for chest pain. Gastrointestinal: Negative for abdominal pain, diarrhea, nausea and vomiting. Musculoskeletal: Positive for myalgias. Skin: Negative for itching and rash. Neurological: Negative for dizziness and headaches. Objective Physical Exam Constitutional: General: He is not in acute distress. Appearance: He is not diaphoretic. HENT: Head: Normocephalic. Jaw: No trismus, tenderness, swelling or pain on movement. Nose: Congestion present. Mouth/Throat: Mouth: Mucous membranes are moist. Pharynx: Oropharynx is clear. No oropharyngeal exudate or posterior oropharyngeal erythema. Eyes: Conjunctiva/sclera: Conjunctivae normal. Pupils: Pupils are equal, round, and reactive to light. Cardiovascular: Rate and Rhythm: Normal rate and regular rhythm. Heart sounds: Normal heart sounds. Pulmonary: Effort: Pulmonary effort is normal. No tachypnea, accessory muscle usage or respiratory distress. Breath sounds: Normal breath sounds. No stridor. No wheezing, rhonchi or rales. Abdominal: Palpations: Abdomen is soft. Tenderness: There is no abdominal tenderness. Musculoskeletal: Cervical back: Normal range of motion and neck supple. No rigidity or tenderness. Lymphadenopathy: Cervical: No cervical adenopathy. Skin: General: Skin is warm and dry. Neurological: Mental Status: He is alert and oriented to person, place, and time. ASSESSMENT/PLAN: 1. Sinobronchitis - ICD9: 473.9, 490, ICD10: J32.9, J40 Patient diagnosed with sinobronchitis. Be placed on doxycycline and Tessalon Perles. Follow-up PCP 2 to 3 days reevaluation. Red flags for prompt reevaluation discussed. Patient was educated on supportive therapies. Patient will follow up with primary care provider as needed. Patient was instructedto immediately proceed to emergency room for any new, worsening, or symptoms lasting longer than anticipated. The patient's clinical presentation is otherwise unremarkable at this time. Based on examand clinical finding, the patient is stable for discharge. Plan of care was discussed with patient.Patient verbalizes understanding and agrees to plan of care. This note was generated using Bellabe[employer] software. It may contain errors in wording, punctuation, or spelling. 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 Malignant neoplasm of splenic flexure Abnormal CT of liver Nonspecific (abnormal) findings on radiological and other examination of biliary tract documented [facility] this [facility]* Diagnosis Malignant neoplasm of splenic flexure (HCC) Malignant neoplasm of splenic flexure Abnormal CT of liver Nonspecific (abnormal) findings on radiological and other examination of biliary tract documented [facility] this [facility]* Diagnosis Malignant neoplasm of splenic flexure (HCC) Malignant neoplasm of splenic flexure documented [facility]* Diagnosis Malignant neoplasm of splenic flexure (HCC)- Primary Malignant neoplasm of splenic flexure documented [facility] this [facility]* Diagnosis Lung nodules- Primary Other nonspecific abnormal finding of lung field [facility]* Diagnosis Intractable chronic migraine without aura and without status migrainosus- Primary Chronic migraine without aura, with intractable migraine, so stated, without mention of status migrainosus Spinal stenosis of cervical region Spinal stenosis in cervical region Cervicalgia DISH (diffuse idiopathic skeletal hyperostosis) Ankylosing vertebral hyperostosis Occipital neuralgia of left side DALE (obstructive sleep apnea) Obstructive sleep apnea (adult) (pediatric) documented in this encounter [facility] note* Diagnosis Lung nodules Other nonspecific abnormal finding of lung field documented [facility]* Diagnosis Sore throat- Primary Acute pharyngitis URI, acute Acute upper respiratory infections of unspecified site documented in this encounter [facility] note* Diagnosis DALE (obstructive sleep apnea)- Primary Obstructive sleep apnea (adult) (pediatric) Intolerance of continuous positive airway pressure (CPAP) ventilation documented in this encounter [facility] noteNo assessment information availableKindred Hospital Work Phone: Evaluation note* Diagnosis DALE (obstructive sleep apnea) Obstructive sleep apnea (adult) (pediatric) Intolerance of continuous positive airway pressure (CPAP) ventilation documented [facility] for referral (narrative)No reason for referral information availableKindred Hospital Work Phone: Summary Purpose Family History No Family History Records Found Relationship Condition Age at Onset Recorded Date/T farhat father Cerebrovascular accident (CVA) Unknown Malignant neoplasm of colon Unknown Hypertension Unknown Cardiac disease Unknown Advance Directives No Advanced Directives Records FoundNo Advanced Directives Records FoundNo Advanced Directives Records FoundNo Advanced Directives Records Found Reason for Referral Specialty Diagnoses / Procedures Referred By Contac t Referred To Contact CT IMAGING Diagnoses Malignant neoplasm of splenic flexure (HCC) Procedures CT CHEST WO IVCON DIAGNOSTIC COMPUTED TOMOGRAPHY THORAX W/O CNTRST Guzman Vasquez, DO [address] [place] [address] Ct Imaging [facility] Referral ID Status Reason Start Date Expiration Date Visits Requested Visits Authorized [id number] Authorized Auto-Generat ed Referral 07/04/2024 08/17/2024 1 1 Specialty Diagnoses / Procedures Referred By Contac t Referred To Contact Diagnoses Malignant neoplasm of splenic flexure (HCC) Procedures CONSULT TO MEDICAL GENETICS - CANCER MEDICAL GENETICS COUNSELING EACH 30 MINUTES Guzman Vasquez, DO [address] [place] [address] [place] [address] Referral ID Status Reason Start Date Expiration Date Visits Requested Visits Authorized [id number] Pending Review PCP Requested Referral Auto-Generate d Referral 07/04/2024 07/04/2025 1 1 Specialty Diagnoses / Procedures Referred By Contac t Referred To Contact MR IMAGING Diagnoses Malignant neoplasm of splenic flexure (HCC) Abnormal CT of liver Procedures MRI LIVER WO/W IVCON MRI ABDOMEN W/O & W/CONTRAST MATERIAL Guzman Vasquez, DO [address] [place] [address] Mr Imaging [facility] Referral ID Status Reason Start Date Expiration Date Visits Requested Visits Authorized [id number] Authorized Auto-Generat ed Referral 07/04/2024 08/17/2024 1 1 Referral ID Status Reason Start Date Expiration Date Visits Requested Visits Authorized [id number] Pending Review Auto-Generat ed Referral 11/05/2024 09/04/2025 1 1 Specialty Diagnoses / Procedures Referred By Contac t Referred To Contact CT IMAGING Diagnoses Lung nodules Procedures CT CHEST WO IVCON DIAGNOSTIC COMPUTED TOMOGRAPHY THORAX W/O CNTRST Guzman Vasquez, DO [address] [place] [address] [place] [address] Referral ID Status Reason Start Date Expiration Date Visits Requested Visits Authorized [id number] Pending Review Auto-Generat ed Referral 11/09/2024 12/09/2025 1 1 Chief Complaint and Reason for Visit Chief Complaint Admit Date 4.5 M FU, Cx 03/05April 09, 2025 8:41a m Reason for Visit Admit Date Elevated LDL cholesterol level April 09, 2025 8:41am Vitamin D insufficiency April 09, 2025 8 :41am Diabetes April 09, 2025 8:41a m Overweight April 09, 2025 8:41a m Additional Source Comments (unrecognized sect ion and content) No Status Records FoundNo Status Records FoundNo Status Records FoundNo Status Records Found INFORMATION SOURCE (unrecogn ized section and content) DATE CREATED AUTHOR 04/03/2018 Crist[facility] DATE CREATED AUTHOR AUTHOR'S ORGANIZ ATION 01/24/2025 [facility] DATE CREATED AUTHOR AUTHOR'S ORGANIZ ATION 06/21/2025 [facility] DATE CREATED AUTHOR AUTHOR'S ORGANIZ ATION 06/21/[address] [facility] Source Comments (unrecognize d section and content) In the event this informatio n is protected by the Federal Confidentiality of Alcohol and Drug Abuse Patient Records regulations: The Federal rules restrict any use of the information to criminally investigate or prosecute any alcohol or drug abuse patient.[facility] LimaIn the event this information is protected by the Federal Confidentiality of Alcohol and Drug Abuse Patient Records regulations: The Federal rules restrict any use of the information to criminally investigate or prosecute any alcohol or drug abuse patient.[facility] LimaIn the event this information is protected by the Federal Confidentiality of Alcohol and Drug Abuse Patient Records regulations: The Federal rules restrict any use of the information to criminally investigate or prosecute any alcohol or drug abuse patient.[facility] LimaIn the event this information is protected by the Federal Confidentiality of Alcohol and Drug Abuse Patient Records regulations: The Federal rules restrict any use of the information to criminally investigate or prosecute any alcohol or drug abuse patient.[facility] LimaIn the event this information is protected by the Federal Confidentiality of Alcohol and Drug Abuse Patient Records regulations: The Federal rules restrict any use of the information to criminally investigate or prosecute any alcohol or drug abuse patient.[facility] LimaIn the event this information is protected by the Federal Confidentiality of Alcohol and Drug Abuse Patient Records regulations: The Federal rules restrict any use of the information to criminally investigate or prosecute any alcohol or drug abuse patient.[facility] LimaIn the event this information is protected by the Federal Confidentiality of Alcohol and Drug Abuse Patient Records regulations: The Federal rules restrict any use of the information to criminally investigate or prosecute any alcohol or drug abuse patient.[facility] LimaIn the event this information is protected by the Federal Confidentiality of Alcohol and Drug Abuse Patient Records regulations: The Federal rules restrict any use of the information to criminally investigate or prosecute any alcohol or drug abuse patient.[facility] LimaIn the event this information is protected by the Federal Confidentiality of Alcohol and Drug Abuse Patient Records regulations: The Federal rules restrict any use of the information to criminally investigate or prosecute any alcohol or drug abuse patient.[facility] LimaIn the event this information is protected by the Federal Confidentiality of Alcohol and Drug Abuse Patient Records regulations: The Federal rules restrict any use of the information to criminally investigate or prosecute any alcohol or drug abuse patient.[facility] LimaIn the event this information is protected by the Federal Confidentiality of Alcohol and Drug Abuse Patient Records regulations: The Federal rules restrict any use of the information to criminally investigate or prosecute any alcohol or drug abuse patient.[facility] LimaIn the event this information is protected by the Federal Confidentiality of Alcohol and Drug Abuse Patient Records regulations: The Federal rules restrict any use of the information to criminally investigate or prosecute any alcohol or drug abuse patient.[facility] LimaIn the event this information is protected by the Federal Confidentiality of Alcohol and Drug Abuse Patient Records regulations: The Federal rules restrict any use of the information to criminally investigate or prosecute any alcohol or drug abuse patient.[facility] LimaIn the event this information is protected by the Federal Confidentiality of Alcohol and Drug Abuse Patient Records regulations: The Federal rules restrict any use of the information to criminally investigate or prosecute any alcohol or drug abuse patient.[facility] LimaIn the event this information is protected by the Federal Confidentiality of Alcohol and Drug Abuse Patient Records regulations: The Federal rules restrict any use of the information to criminally investigate or prosecute any alcohol or drug abuse patient.[facility] LimaIn the event this information is protected by the Federal Confidentiality of Alcohol and Drug Abuse Patient Records regulations: The Federal rules restrict any use of the information to criminally investigate or prosecute any alcohol or drug abuse patient.[facility] LimaIn the event this information is protected by the Federal Confidentiality of Alcohol and Drug Abuse Patient Records regulations: The Federal rules restrict any use of the information to criminally investigate or prosecute any alcohol or drug abuse patient.[facility] Reason for Visit (unrecogniz ed section and content) Reason Comments Cough Chest congestion, SO B x1 week Specialty Diagnoses / Procedures Referred By Contac t Referred To Contact [facility] Diagnoses cold symptoms Procedures EST SAME DAY [facility] [address] [place] [address] Referral ID Status Reason Start Date Expiration Date V isits Requested Visits Authorized [id number] Outside PCP 07/30/2022 09/28/2022 1 1 Reason Comments New Patient Specialty Diagnoses / Procedures Referred By Contac t Referred To Contact MR IMAGING Diagnoses Malignant neoplasm of splenic flexure (HCC) Abnormal CT of liver Procedures MRI LIVER WO/W IVCON MRI ABDOMEN W/O & W/CONTRAST MATERIAL Guzman Vasquez, DO [address] [place] [address] [place] [address] Referral ID Status Reason Start Date Expiration Date V isits Requested Visits Authorized [id number] Closed Auto-Generate d Referral 07/04/2024 08/17/2024 [address] Specialty Diagnoses / Procedures Referred By Contac t Referred To Contact CT IMAGING Diagnoses Malignant neoplasm of splenic flexure (HCC) Procedures CT CHEST WO IVCON DIAGNOSTIC COMPUTED TOMOGRAPHY THORAX W/O CNTRST Guzman Vasquez, DO [address] [place] [address] [place] [address] Referral ID Status Reason Start Date Expiration Date V isits Requested Visits Authorized [id number] Closed Auto-Generate d Referral 07/04/2024 08/17/2024 1 1 Reason Comments Results Referral ID Status Reason Start Date Expiration Date V isits Requested Visits Authorized [id number] Closed Auto-Generate d Referral 11/05/2024 12/20/2024 1 1 Reason Comments Patient Question Reason Comments New Patient Specialty Diagnoses / Procedures Referred By Contac t Referred To Contact CT IMAGING Diagnoses Lung nodules Procedures CT CHEST WO IVCON DIAGNOSTIC COMPUTED TOMOGRAPHY THORAX W/O CNTRST Guzman Vasquez, DO [address] [place] [address] Phone: tel: fax: [place] [address] Referral ID Status Reason Start Date Expiration Date V isits Requested Visits Authorized [id number] Closed Auto-Generate d Referral 02/04/2025 03/21/2025 1 1 Reason Comments Results Reason Comments Sore Throat ST and congestion x 1 day Reason Comments New Patient Sleep apnea Specialty Diagnoses / Procedures Referred By Stanley t Referred To Contact Ent - Otolaryngology Diagnoses DALE (obstructive sleep apnea) Intolerance of continuous positive airway pressure (CPAP) ventilation Procedures CONSULT TO SLEEP SURGERY Sindhu Dial APRN.KAIAKO KURA KAUPAPA MAORI [address] [place] [address] Phone: tel: fax: Referral ID Status Reason Start Date Expiration Date V isits Requested Visits Authorized [id number] Closed PCP Requested Referral 04/01/2025 03/23/2026 1 1 Reason Onset Date Comments Appointment 03/04/2025 Reason Comments CMN Care Teams (unrecognized sec tion and content) Leather Seasoner Relationship Specialty Start Date End Date Rajeev Adams MD [address] [place] [address] [id number] PCP - General 09/25/08 Leather Seasoner Relationship Specialty Start Date End Date Ben Rodriguez APRN.KAIAKO KURA KAUPAPA MAORI [address] [facility] [address] [place], [place] [id number] PCP - General Family Medicine 07/04/24 Leather Seasoner Relationship Specialty Start Date End Date Ben Rodriguez APRN.KAIAKO KURA KAUPAPA MAORI [address] [place], [place] [id number] PCP - General Family Medicine 07/04/24 Leather Seasoner Relationship Specialty Start Date End Date Ben Rodriguez APRN.KAIAKO KURA KAUPAPA MAORI [address] [place], [place] [id number] PCP - General Family Medicine 07/04/24 Leather Seasoner Relationship Specialty Start Date End Date Ben Rodriguez APRN.KAIAKO KURA KAUPAPA MAORI [address] [place], [place] [phone] PCP - General Family Medicine 07/04/24 Leather Seasoner Relationship Specialty Start Date End Date Ben Rodriguez REEL MAN.KAIAKO KURA KAUPAPA MAORI [address] [place] [address] PCP - General Family Medicine 07/04/24 Leather Seasoner Relationship Specialty Start Date End Date Ben Rodriguez, REEL MAN.KAIAKO KURA KAUPAPA MAORI [address] [facility] [address] [place] [address] PCP - General Family Medicine 01/22/25 Leather Seasoner Relationship Specialty Start Date End Date Ben Rodriguez REEL MAN.KAIAKO KURA KAUPAPA MAORI [address] [facility] [address] [place] [address] PCP - General Family Medicine 01/22/25 Leather Seasoner Relationship Specialty Start Date End Date Ben Rodriguez, REEL MAN.KAIAKO KURA KAUPAPA MAORI [address] [facility] [address] [place] [address] PCP - General Family Medicine 01/22/25 Leather Seasoner Relationship Specialty Start Date End Date Ben Rodriguez, REEL MAN.KAIAKO KURA KAUPAPA MAORI [address] [facility] [address] [place] [address] PCP - General Family Medicine 01/22/25 Leather Seasoner Relationship Specialty Start Date End Date Ben Rodriguez, REEL MAN.KAIAKO KURA KAUPAPA MAORI [address] [facility] [address] [place] [address] PCP - General Family Medicine 01/22/25 Team Status: Active Member Role/Relationship Status Dates Dr. Rajeev Adams MD Family Provider Active Deidre Schrader NP, [employer] 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 Primary Care Provider Activ e Team Status: Active Member Role/Relationship Status Dates Deidre Schrader NP, ASPHALT 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 Primary Care Provider Activ e Start: April 08, 2025 Ben Michael , ASPHALT 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 Attending Provider Active Start: April 08, 2025 Ben Rodriguez NP-C Referring Provider Active Start: April 08, 2025 Team Status: Inactive Member Role/Relationship Status Dates Deidre Schrader NP, ASPHALT 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 Primary Care Provider Activ e Start: April 09, 2025 End: April 09, 2025 Deidre Schrader NP ASPHALT 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 Referring Provider Active Start: April 09, 2025 End: April 09, 2025 Ben Rodriguez NP-Deisy Attending Provider Active Start: April 09, 2025 End: April 09, 2025 Team Status: Inactive Member Role/Relationship Status Dates Deidre Schrader NP, ASPHALT 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 Primary Care Provider Activ e Start: April 08, 2025 End: April 08, 2025 VARSHA Angel Attending Provider Active Start: April 08, 2025 End: April 08, 2025 VARSHA Angel Referring Provider Active Start: April 08, 2025 End: April 08, 2025 Leather Seasoner Relationship Specialty Start Date End Date Ben Rodriguez APRN.KAIAKO KURA KAUPAPA MAORI [address] [address] PCP - General Family Medicine 01/22/25 Leather Seasoner Relationship Specialty Start Date End Date Ben Rodriguez APRN.KAIAKO KURA KAUPAPA MAORI [address] [address] PCP - General Family Medicine 01/22/25 Leather Seasoner Relationship Specialty Start Date End Date Ben Rodriguez APRN.KAIAKO KURA KAUPAPA MAORI [address] [address] PCP - General Family Medicine 01/22/25 Goals (unrecognized section and content) Goals may be documented in a n alternate sectionGoals may be documented in an alternate section FOR RECORDS PERTAINING TO PATIENTS WHO ARE OR HAVE BEEN ENROLLED IN A CHEMICAL DEPENDENCY/SUBSTANCEABUSE PROGRAM, SOME INFORMATION MAY BE OMITTED. This clinical summary was aggregated from multiple sources. Caution should be exercised in using it in the provision of clinical care. This summary normalizes information from multiple sources, and as a consequence, information in this document may materially change the coding, format and clinical context of patient data. In addition, data may be omitted in some cases. CLINICAL DECISIONS SHOULD BE BASED ON THE PRIMARY CLINICAL RECORDS. [employer] [facility]. provides no warranty or guarantee of the accuracy or completeness of information in this document.
[2025-06-23] MEDS: Lactated Ringers 1,000 ML 15 ML IV (06:54)
--- NOTE | 2025-06-23 07:06 | PCM.PRE.AN2 ---
ASA Classification* ASA Classification ASA Classification: 2 Assessment & Plan Anesthesia* Anesthesia Assessment Anesthesia Assessment: Discussed sedation and/or anesthesia options, risks, benefits, and alternatives with patient/parents/legal guardian/POA. Questions invited. The patient/parents/legal guardian/POA seems to understand and agrees to proceed with anesthesia plan. Reviewed the physical assessment, medical history, allergy history and patient home medications list prior to surgery/procedure/anesthetic and documented any changes. Performed airway and anesthesia risk assessments. Anesthesia Type Anesthesia Type: MAC History Source History Obtained from:: Patient and Chart Anesthesia Focused Assessment* Temperature: 97.3 F Pulse Rate: 85 Blood Pressure: 132/79 Respiratory Rate: 16 Pulse Ox: 98 Oxygen Delivery Method: Room Air Airway Assessment Mouth opens: >3 cm Mallampati Score: IV Teeth Condition: Intact Neck Range of motion (ROM): Full ROM Labs Anesthesia Preop lab: CBC WBC 5.9 K/mm3 (4.4-11.0) 06/27/24 06:06/27/24 RBC 3.96 M/mm3 (4.6-6.2) L 06/27/24 06:17 06/27/24 Hgb 11.3 g/dL (13.0-16.5) L 06/27/24 06:17 06/27/24 Hct 34.8 % (40-54) L 06/27/24 06:17 06/27/24 Plt Count 260 K/mm3 (150-450) 06/27/24 06:17 06/27/24 CHEMISTRY Potassium 3.9 mmol/L (3.3-5.1) 04/08/25 09:04/08/25 Sodium 139 mmol/L (133-145) 04/08/25 09:04/08/25 Magnesium 2.2 mg/dL (1.6-2.6) 06/23/24 09:15 06/23/24 BUN 16 mg/dL (4-19) 04/08/25 09:04/08/25 Creatinine 0.86 mg/dL (0.70-1.20) 04/08/25 09:24 04/08/25 Glucose 160 mg/dL (70-99) H 04/08/25 09:24 04/08/25 POC Glucose 281 mg/dL (74-106) H 06/23/24 13:20 06/23/24 TSH 1.790 uIU/mL (0.300-4.200) 04/08/25 09:24 04/08/25 COAG Pre-Assessment Diagnosis/Proposed Procedure Planned Operative Procedure(s): CSCOPE OA Anesthesia History 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 When Was Last Pacemaker Check QUESTION #4 FULL TEXT: You/Your Family Experience fever (hyperthermia) with Anesthesia Last Oral Intake Last Oral intake: Last Oral Intake NPO since 22:00 06/23/25 06:50 Meds taken in AM with sips of No 06/23/25 06:50 water? Meds patient instructed to take am of surgery PONV PONV - vacuum forming machine operator: PONV - vacuum forming machine operator Female No 06/19/25 15:38 HX of Motion Sickness No 06/19/25 15:38 HX of N/V After Surgery No 06/19/25 15:38 Non-Smoker Yes 06/19/25 15:38 Duration of Surgery greater No 06/19/25 15:38 than 60 minutes Number of Risk Factors 1 06/19/25 15:38 PONV Score Low Risk 06/19/25 15:38 Height & Weight Height & Weight: Anesthesia: Height & Weight Height 5 ft 2 in 06/23/25 06:50 Weight: 70.4 kg 06/23/25 06:50 Body Mass Index (BMI) 28.3 06/23/25 06:50 Respiratory Assessment Respiratory Assessment - vacuum forming machine operator: Respiratory Tract Infection Hx - vacuum forming machine operator Hx Respiratory Tract Infection No 06/19/25 15:38 STOP Sleep Apnea STOP Sleep Apnea - vacuum forming machine operator: STOP Sleep Apnea - vacuum forming machine operator Hx Hypertension Yes: NO MEDS FOR 1.5 06/19/25 15:38 Hx Sleep Apnea Yes 06/19/25 15:38 CPAP Yes: NONCOMPLIANT 06/19/25 15:38 BIPAP No 06/19/25 15:38 Do you snore loudly (louder than talking or can be heard Do you often feel tired/ fatigued/ sleepy during daytime? Has anyone observed you stop breathing during sleep? STOP Results Positive 06/19/25 15:38 QUESTION #5 FULL TEXT : Do you snore loudly (louder than talking or can be heard through closed doors)? 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: Tobacco Use History - vacuum forming machine operator Tobacco Use Smoking Status Never smoker 06/19/25 15:38 Hx Tobacco Use No 06/19/25 15:38 Years Smoking Packs Smoked per Day Smoking Cessation Date was within the last 15 years Hx Smoking Cessation Date Hx Smoking Cessation Counseling Hematologic Medial History Hematologic Hx - vacuum forming machine operator: Hematologic Medical Hx - teacher lip reading Hx of Blood Transfusion No 06/19/25 15:38 Hx of Transfusion in last 3 No 06/19/25 15:38 Months Date of Last Transfusion (if within last 3 months) Ever experience any problems No 06/19/25 15:38 with transfusion(s)? Specify any problems Hx of Preganancy in last 3 N/A 06/19/25 15:38 Months Nurse Filling Out Transfusion DSCHRIBER 06/19/25 15:38 & Questions: Date: 06/19/25 06/19/25 15:38 Time: 15:38 06/19/25 15:38 Patient unable to answer at this time (ie. confused, unrespo /Reproduction History /Reproductive History - vacuum forming machine operator: /Reproductive Hx- vacuum forming machine operator Hx Now Gestational Age (in weeks): EDC: Hx Hx Para Hx Section SAB No 06/19/25 15:38 Active Medications Active Medications: Current Medications Generic Name Dose Route Start Last Admin Trade Name Freq PRN Reason Stop Dose Admin Lactated Ringer's 1,000 mls @ 15 mls/hr 06/23/25 06:45 06/23/25 06:54 IV 15 mls/hr .Q48H BECCA Administration PFSH Medical History Cancer Heartburn Colonic mass Wears glasses Arthritis Restless legs Back pain Migraine headache Dietary restriction History of hiatal hernia CPAP (continuous positive airway pressure) dependence History of deviated nasal septum DMII (diabetes mellitus, type 2) HTN (hypertension) Family history of colon cancer in father Home Medications ?Medication ?Instructions ?Recorded ?Last Taken ?Type tirzepatide 5 mg/0.5 mL 5 mg (0.5 mL) subcut QWEEK #2 mL 04/09/25 06/10/25 Rx subcutaneous pen injector (Mounjaro) Allergy/AdvReac Type Severity Reaction Status Date / Time Environmental Allergies: Allergy PT UNABLE Verified 06/23/25 06:49 Uncoded (seasonal) TO RESPOND-NEEDS F/U Family History Father CVA (cerebral vascular accident) Colon cancer Hypertension Heart disease Surgical History S/P left hemicolectomy Hx of colonoscopy Social History household members: spouse current occupational status: employed Smoking Status: Never smoker Electronic Cigarette Use: not used second hand exposure: No alcohol intake: never substance use type: does not use Review of Systems (Anesthesia) ROS Narrative System reviewed and no additional complaints, except as documented.
--- NOTE | 2025-06-23 07:30 | COLBX_PTH ---
PATIENT: MASON BYRNES LOC: EN U#:[id number] AGE/SX: 54/M ROOM: RE06/23/[address]: Dr. Lamont José MD : 1970 BED: DIS: 06/23/2025 SPEC #: [id number] RECD: 06/23/25 10:02 STATUS: MIGUEL A ELAINE #: [id number] SUSAN: 06/23/25 07:[address]: Lamont José DEPT: SURGICAL PATHOLOGY RECD BY: Alejandro Lang ENTERED: 06/23/25 14:15 SP TYPE: COLON BX OTHR DR: Deidre Schrader, ALUMNAE SECRETARY-C Tissues: A - Rectum, NOS Procedures: Surgery Specimen Level IV HEADER OPERATION: Colonoscopy with polypectomy PRE-OP DIAGNOSIS: Status post left hemicolectomy TISSUE SUBMITTED: A- Rectum polyp MICROSCOPIC DIAGNOSIS A. Rectum, polyp, biopsy: - Mucosal polyp, favor hyperplastic polyp - see note. Note: Cautery artifact distorts a portion of the tissue, limiting the assessment. No definite dysplasia is seen (deeper sections examined), favoring a hyperplastic polyp. MICROSCOPIC DESCRIPTION Slides are reviewed. GROSS DESCRIPTION A. Received in fixative is one container labeled with the patient's name and designated Rectum polyp. The specimen consists of one irregular fragment of light song soft tissue that measures 0.3 cm. The specimen is totally submitted in one cassette. GA 06/23/2025 CPT:33455
--- NOTE | 2025-06-23 07:30 | HP.PCM_ITS ---
HPI - General HPI Narrative MASON BYRNES, is a 54 M who presents for surveillance colonoscopy. The patient had a colectomy last year of the splenic flexure. He reports no issues since colectomy. He denies any issues with defecation or blood in the bowel movements [facility] Medical History Cancer Heartburn Colonic mass Wears glasses Arthritis Restless legs Back pain Migraine headache Dietary restriction History of hiatal hernia CPAP (continuous positive airway pressure) dependence History of deviated nasal septum DMII (diabetes mellitus, type 2) HTN (hypertension) Family history of colon cancer in father Home Medications ?Medication ?Instructions ?Recorded ?Last Taken ?Type tirzepatide 5 mg/0.5 mL 5 mg (0.5 mL) subcut QWEEK # 2 mL 04/09/25 06/10/25 Rx subcutaneous pen injector (Mounjaro) Allergy/AdvReac Type Severity Reaction Status Date / Time Environmental Allergies: Allergy PT UNABLE Verified 06/23/25 06:49 Uncoded (seasonal) TO RESPOND-NEEDS F/U Family History Father CVA (cerebral vascular accident) Colon cancer Hypertension Heart disease Surgical History S/P left hemicolectomy Hx of colonoscopy Social History household members: spouse current occupational status: employed Smoking Status: Never smoker Electronic Cigarette Use: not used second hand exposure: No alcohol intake: never substance use type: does not use Past Medical/Surgical History Planned Operation Planned Operative Procedure(s): CSCOPE OA Previous Hospitalizations/Surgeries HX Hospitalizations: No Any Problems With Anesthesia: No You/Your Family Experience Fever (Hyperthermia) With Anes: No Cholinesterase deficiency: No Cardiovascular Hx of Irregular Heartbeat and/or Afib: No Hx Heart Attack: No Hx Congestive Heart Failure: No Hx Hypertension: Yes (NO MEDS FOR 1.5) Hx Pacemaker: No Respiratory Hx Chronic Obstructive Pulmonary Disease (COPD): No Hx Asthma: No Hx Emphysema: No Hx Sleep Apnea: Yes CPAP: Yes (NONCOMPLIANT) BIPAP: No Hx Respiratory Tract Infection/Cold (presently): No Result (for STOP score): Positive Smoking Status: Never smoker Gastrointestinal Hx Ulcer: No Neurological Hx Seizures: No Hx Head/Neck Injury: No Hx Headaches: Yes Hx Back Injury/Pain: No Does patient have nerve stimulator: No Miscellaneous Recent Exposure to Contagious Disease: No Allergies Environmental Allergies: Uncoded (seasonal) Allergy (Verified 06/23/25 06:49) PT UNABLE TO RESPOND-NEEDS F/U Discharge Is Pt Admitted From a Shelter, or a Mcc: No After D/C, Where Do you Plan to Go: Return Home Vital Signs Vital Signs Vital Signs: 06/23/25 06:50 06/23/25 06:50 06/23/25 07:11 Temperature 97.3 F L 97.3 F L Temperature Source Temporal Pulse Rate 85 85 Respiratory Rate 16 16 Respiratory Pattern Normal Blood Pressure 132/79 H 132/79 H Blood Pressure Mean 96 Blood Pressure Source Monitor Blood Pressure Position Sitting Blood Pressure Location Right Arm Pulse Ox 98 98 Oxygen Delivery Method Room Air Room Air Weight Weight: 155 lb 3.287 oz Body Mass Index (BMI) 28.3 Physical Exam Const alert and oriented x3 HEENT normocephalic Eyes PERRL Resp normal respiratory effort and normal air movement Cardio regular rate and regular rhythm GI soft to palpation, non-tender and non-distended Extremity normal to inspection Assessment & Plan Assessment/Plan (1) S/P left hemicolectomy: PLAN: I explained endoscopy in detail to the patient. I explained the risks including but not limited to stroke or heart attack with anesthesia, perforation of the GI tract, bleeding, infection. I explained that any of these could necessitate further emergency surgery. The patient understands and all questions were answered sufficiently. The patient wishes to proceed with procedure. Lamont José MD Pager: [facility] [address] [place] [address], [address] [place] [address] Office: Surgery Risks - Colonoscopy Risks Include but are not Limited To: Risks include but are not limited to: Bleeding, perforation requiring further surgery, inability to complete colonoscopy requiring barium enema.
--- NOTE | 2025-06-23 08:04 | PCM.POST.ANE ---
Anesthesia: Postop Eval I Current Vital Signs Temperature: 97.2 F Pulse Rate: 77 Blood Pressure: 102/65 Respiratory Rate: 16 Pulse Ox: 97 Oxygen Delivery Method: Room Air Assessment Airway patent: Yes Spontaneous unlabored respirations: Yes Mental status: Asleep nausea: No Vomiting: No Anesthesia Complication: No Fluid Hydration Crystalloid volume administer (ml): 500 Total IV fluid infused: 500 Progress Note Anesthesia document: Postop Eval 1 completed: Yes
--- NOTE | 2025-06-23 08:05 | OP.COLON_ITS ---
Patient Name: Addy Gregory Procedure Date: 06/23/2025 7:35 AM Date of : 1970 Age: 54 Procedure: Colonoscopy Indications: High risk colon cancer surveillance: Personal history of colon cancer Providers: Lamont José MD Medicines: Propofol per Anesthesia Patient Profile: This is a 54 year old male. Refer to note in patient chart for documentation of history and physical. Last Colonoscopy: 1 year ago. Complications: No immediate complications. Procedure: Pre-Anesthesia Assessment: - Prior to the procedure, a History and Physical was performed, and patient medications and allergies were reviewed. The patient's tolerance of previous anesthesia was also reviewed. The risks and benefits of the procedure and the sedation options and risks were discussed with the patient. All questions were answered, and informed consent was obtained. Prior Anticoagulants: The patient has taken no anticoagulant or antiplatelet agents. After reviewing the risks and benefits, the patient was deemed in satisfactory condition to undergo the procedure. After I obtained informed consent, the scope was passed under direct vision. Throughout the procedure, the patient's blood pressure, pulse, and oxygen saturations were monitored continuously. The pediatric colonoscope was introduced through the anus and advanced to the cecum, identified by appendiceal orifice and ileocecal valve. The colonoscopy was performed without difficulty. The patient tolerated the procedure well. The quality of the bowel preparation was good. The ileocecal valve, appendiceal orifice, and rectum were photographed. Scope In: 7:44:48 AM Scope Withdrawal Time 0 hours 7 minutes 14 seconds Scope Out: 7:55:43 AM Total Procedure Duration Time 0 hours 10 minutes 55 seconds Findings: The entire examined colon appeared normal on direct and retroflexion views. A small polyp was found in the rectum. The polyp was removed with a hot snare. Resection and retrieval were complete. Impression: - The entire examined colon is normal on direct and retroflexion views. - No specimens collected. Recommendation: - Discharge patient to home. - Resume previous diet. - Continue present medications. - Repeat colonoscopy in 1 year for surveillance. Procedure Code(s): --- Professional --- 62683, Colonoscopy, flexible; with removal of tumor(s), polyp(s), or other lesion(s) by snare technique Diagnosis Code(s): --- Professional --- Z85.038, Personal history of other malignant neoplasm of large intestine CPT copyright 2021 [employer]. All rights reserved. The codes documented in this report are preliminary and upon event services manager review may be revised to meet current compliance requirements. Lamont José MD 06/23/2025 8:04:41 AM This report has been signed electronically. Number of Addenda: 0 Note Initiated On: 06/23/2025 7:35 AM
--- NOTE | 2025-06-23 08:05 | OP.PROVAT_ITS ---
06/23/2025 Rehana Henley Re : Colonoscopy procedure for Addy Gregory Dear Raciel This procedure was performed on Monday, June 23, 2025. My impressions and recommendations are as follows: Impressions : - The entire examined colon is normal on direct and retroflexion views. - No specimens collected. Recommendations : - Discharge patient to home. - Resume previous diet. - Continue present medications. - Repeat colonoscopy in 1 year for surveillance. My findings are described in the full procedure note, which is enclosed. If I can be of further assistance, please feel free to contact me at Doctor phone number(s): , Work: . Sincerely, Lamont José MD 06/23/2025 8:04:41 AM This report has been signed electronically.
--- NOTE | 2025-06-23 08:29 | PCM.POSTANE2 ---
Anesthesia Postop Eval I Sum Postop Eval Completion status Anesthesia document: Postop Eval 1 completed: Yes Anesthesia Postop Eval I Summary Anesthesia Postop Eval I Summary: Anesthesia Postop Eval I: Assessment Summary Airway patent Yes 06/23/25 08:05 [email or web address] Spontaneous unlabored Yes 06/23/25 08:05 [email or web address] respirations Mental status Asleep 06/23/25 08:05 [email or web address] nausea No 06/23/25 08:05 [email or web address] Vomiting No 06/23/25 08:05 [email or web address] Anesthesia Postop Eval I: Fluid Summary Crystalloid volume administer 500 06/23/25 08:05 [email or web address] (ml) Colloids volume administered ( ml) Blood Product volume administered (ml) Total IV fluid infused 500 06/23/25 08:05 [email or web address] Anesthesia Postop Eval I: Summary Notes Anesthesia Complication No 06/23/25 08:05 [email or web address] Anesthesia Complication Comment: Post-operative progress note Anesthesia: Postop Eval II Evaluation Mental status: Awake and Calm Pain Level: 0 nausea: No Vomiting: No Complications Anesthesia Complication: No
== END 2025-06-23 08:37 | disposition home or self-care (01) ==
LOC: EN 06:35 → AC 06:36
PROVIDERS: PCP Registered Nurse; Referring Provider Registered Nurse; Visit Provider Surgery
PROC: 0DJD8ZZ Inspection of Lower Intestinal Tract, Via Natural or Artificial Opening Endoscopic (ICD-10-PCS; CPT 45378; principal; 2025-06-23 07:25)
DX: Z12.11 Encounter for screening for malignant neoplasm of colon (principal); E11.9 Type 2 diabetes mellitus without complications; Z79.85 Long-term (current) use of injectable non-insulin antidiabetic drugs; I10 Essential (primary) hypertension; Z90.49 Acquired absence of other specified parts of digestive tract; Z80.0 Family history of malignant neoplasm of digestive organs; K62.1 Rectal polyp
CPT/HCPCS: 45385; 88305; J2405